=== PATIENT | female | born 1935 | race African-American/Black ===

== ENCOUNTER 2018-01-26 04:33 | Inpatient (IN) ==
[2018-01-26] MEDS ORDERED: SODIUM CHLORIDE 0.9% 1,000 ML IV STA (04:50)
[2018-01-26 05:40] LABS: Apearance,Urine CLOUDY (Clear); Bacteria,Urine Occasional /HPF (Few); Bilirubin,Urine Negative (Negative); Blood, Urine Moderate mg/dL (Negative); Glucose,Urine (UA) Negative (Negative); Ketones,Urine Negative (Negative); Mucus,Urine Occasional /LPF (Occasional); Nitrite,Urine Negative (Negative); Protein,Urine 100 MG/DL; RBC,Urine 6 /HPF (0-4); Urine Color Yellow (Yellow); Urine Specific Gravity 1.014 (1.001-1.035); Urine Urobilinogen < 2.0 EU/DL (0.2-1.0)
[2018-01-26 05:59] LABS: Basophils # 0.1 10*3/uL (0.0-0.2); Basophils % 0.4 % (0.0-0.8); Eosinophils # 0.1 10*3/uL (0.0-0.87); Eosinophils % 0.6 % (0.00-10.9); Hematocrit 30.7 VOL% (35.7-47.0); Hemoglobin 9.5 GM/DL (12.0-16.0); Immature Granulocytes % 0.5 %; Immature Granulocytes Absolute 0.07 #; Lymphocytes # 1.1 10*3/uL (1.4-4.0); Lymphocytes % 8.6 % (21.3-54.2); Mean Corpuscular HGB Conc 30.9 GM/DL (32-36); Mean Corpuscular Hemoglobin 29 PG (27-34); Mean Corpuscular Volume 94.8 FL (87-102); Mean Platelet Volume 11.3 FL (9.6-12.0); Monocytes # 1.5 10*3/uL (0.11-0.8); Monocytes % 11.2 % (1.7-12.7); Neutrophils # 10.2 10*3/uL (1.4-7.4); Neutrophils % 78.7 % (38.7-73.9); Platelet Count 228 T/CUMM (130-400); Red Blood Count 3.24 MC/CUMM (3.8-5.5); Red Cell Distribution Width 17.2 % (9.3-17.3)
[2018-01-26 06:03] LABS: Lactic Acid 1.8 MMOL/L (0.4-2.0)
[2018-01-26 06:11] LABS: Alanine Aminotransferase 28 U/L (13-56); Albumin 2.4 G/DL (3.4-5.0); Alkaline Phosphatase 55 U/L (45-117); Aspartate Amino Transferase 46 U/L (0-37); Bilirubin,Total < 0.39 MG/DL (0.2-1.0); Blood Urea Nitrogen 67 MG/DL (7-18); Calcium 8.9 MG/DL (8.5-10.1); Glucose 129 MG/DL (74-106); Osmolality,Calculated 306.8 MOS/KG (273-304); Potassium 4.8 MMOL/L (3.5-5.1); Sodium 144 MMOL/L (136-145); Total Protein 7.5 G/DL (6.4-8.3)
[2018-01-26] MEDS ORDERED: CEFEPIME 1,000 MG in SODIUM CHLORIDE 0.9% 100 ML IV STA (06:29)
[2018-01-26] MEDS ORDERED: VANCOMYCIN INJ 1,000 MG in SODIUM CHLORIDE 0.9% 250 ML IV STA (06:30)
[2018-01-26] MEDS ORDERED: DOCUSATE SODIUM 100 MG CAPSULE PO PRN (08:21)
[2018-01-26] MEDS ORDERED: ACETAMINOPHEN 325 MG TABLET PO PRN (08:21)
[2018-01-26] MEDS ORDERED: LACTULOSE 20 GM/30 ML UDCUP PO PRN (08:21)
[2018-01-26] MEDS ORDERED: ONDANSETRON 4 MG/2 ML VIAL IV PRN (08:21)
[2018-01-26] MEDS ORDERED: VANCOMYCIN INJ 1,000 MG in SODIUM CHLORIDE 0.9% 250 ML IV SCH (08:30)
[2018-01-26] MEDS ORDERED: cefTRIAXone 1,000 MG in SYRINGE 1 EACH IV SCH (09:00)
[2018-01-26] MEDS: SODIUM CHLORIDE 0.9% 1,000 ML IV SCH (12:32)
[2018-01-26] MEDS ORDERED: VANCOMYCIN INJ 500 MG in SODIUM CHLORIDE 0.9% 100 ML IV ONE (13:00)
[2018-01-26] MEDS ORDERED: VANCOMYCIN INJ 1,000 MG in SODIUM CHLORIDE 0.9% 250 ML IV PRN (13:00)
[2018-01-26] MEDS: ALBUTEROL/IPRATROPIUM 3 ML NEB RESP TX SCH ×2 (13:58→19:43)
[2018-01-26] MEDS: DOXAZOSIN 4 MG TABLET PO SCH (15:17)
[2018-01-26] MEDS: PANTOPRAZOLE 40 MG TABLET PO SCH (15:17)
[2018-01-26] MEDS: MEMANTINE 5 MG TABLET PO SCH (15:17)
[2018-01-26] MEDS: FERROUS SULFATE 325 MG TABLET PO SCH (15:17)
[2018-01-26] MEDS: CINACALCET 30 MG TABLET PO SCH (15:17)
[2018-01-26] MEDS: amLODIPine 10 MG TABLET PO SCH (15:17)
[2018-01-26] MEDS ORDERED: ATORVASTATIN 20 MG TABLET PO SCH (21:00)
[2018-01-26] MEDS: DONEPEZIL 10 MG TABLET PO SCH (22:20)
[2018-01-26] MEDS: MIRTAZAPINE 15 MG TABLET PO SCH (22:20)
[2018-01-27] MEDS: ALBUTEROL/IPRATROPIUM 3 ML NEB RESP TX SCH ×4 (00:38→19:58)
[2018-01-27 05:39] LABS: Basophils % 0.4 % (0.0-0.8); Eosinophils # 0.3 10*3/uL (0.0-0.87); Eosinophils % 2.5 % (0.00-10.9); Hematocrit 26.7 VOL% (35.7-47.0); Hemoglobin 8.3 GM/DL (12.0-16.0); Immature Granulocytes % 0.5 %; Immature Granulocytes Absolute 0.06 #; Lymphocytes # 0.9 10*3/uL (1.4-4.0); Mean Corpuscular HGB Conc 31.1 GM/DL (32-36); Mean Corpuscular Hemoglobin 29 PG (27-34); Mean Corpuscular Volume 93.7 FL (87-102); Mean Platelet Volume 12.6 FL (9.6-12.0); Monocytes # 1.3 10*3/uL (0.11-0.8); Monocytes % 11.4 % (1.7-12.7); Neutrophils # 8.8 10*3/uL (1.4-7.4); Neutrophils % 77.2 % (38.7-73.9); Red Blood Count 2.85 MC/CUMM (3.8-5.5); White Blood Count 11.4 T/CUMM (4-12)
[2018-01-27 05:42] LABS: Platelet Count 179 T/CUMM (130-400)
[2018-01-27 05:58] LABS: Hypochromasia Slight; Platelet Estimate Adequate; Polychromasia Few
[2018-01-27 06:04] LABS: Albumin 1.9 G/DL (3.4-5.0); Bilirubin,Total 0.6 MG/DL (0.2-1.0); Calcium 8.6 MG/DL (8.5-10.1); Osmolality,Calculated 299.1 MOS/KG (273-304); Potassium 4.9 MMOL/L (3.5-5.1); Risk Ratio 2.82; Thyroid Stimulating Hormone 2.4 uIU/ml (0.358-3.74); Total Protein 7.4 G/DL (6.4-8.3); VLDL CHOLESTEROL 8.4 MG/DL
[2018-01-27] MEDS: amLODIPine 10 MG TABLET PO SCH (08:46)
[2018-01-27] MEDS: PANTOPRAZOLE 40 MG TABLET PO SCH (08:46)
[2018-01-27] MEDS: FERROUS SULFATE 325 MG TABLET PO SCH (08:46)
[2018-01-27] MEDS: MEMANTINE 5 MG TABLET PO SCH (08:46)
[2018-01-27] MEDS: DOXAZOSIN 4 MG TABLET PO SCH (08:46)
[2018-01-27] MEDS: SODIUM CHLORIDE 0.9% 1,000 ML IV SCH ×2 (08:47→13:14)
[2018-01-27] MEDS: CEFEPIME 1,000 MG in SYRINGE 1 EACH IV SCH (08:47)
[2018-01-27] MEDS: CINACALCET 30 MG TABLET PO SCH (08:47)
[2018-01-27] MEDS ORDERED: VANCOMYCIN INJ 1,500 MG in SODIUM CHLORIDE 0.9% 500 ML IV ONE (09:00)
[2018-01-27] MEDS: ATORVASTATIN 10 MG TABLET PO SCH (20:45)
[2018-01-27] MEDS: MIRTAZAPINE 15 MG TABLET PO SCH (20:45)
[2018-01-27] MEDS: DONEPEZIL 10 MG TABLET PO SCH (20:45)
[2018-01-28] MEDS: ALBUTEROL/IPRATROPIUM 3 ML NEB RESP TX SCH ×6 (00:21→23:57)
[2018-01-28 06:19] LABS: Basophils % 0.4 % (0.0-0.8); Eosinophils # 0.6 10*3/uL (0.0-0.87); Eosinophils % 5.9 % (0.00-10.9); Hematocrit 27.3 VOL% (35.7-47.0); Hemoglobin 8.5 GM/DL (12.0-16.0); Immature Granulocytes % 0.8 %; Immature Granulocytes Absolute 0.08 #; Lymphocytes # 0.9 10*3/uL (1.4-4.0); Lymphocytes % 9.7 % (21.3-54.2); Mean Corpuscular HGB Conc 31.1 GM/DL (32-36); Mean Corpuscular Hemoglobin 29 PG (27-34); Mean Corpuscular Volume 94.5 FL (87-102); Mean Platelet Volume 10.2 FL (9.6-12.0); Monocytes % 10.2 % (1.7-12.7); Neutrophils # 7.1 10*3/uL (1.4-7.4); Platelet Count 229 T/CUMM (130-400); Red Blood Count 2.89 MC/CUMM (3.8-5.5); Red Cell Distribution Width 16.9 % (9.3-17.3); White Blood Count 9.7 T/CUMM (4-12)
[2018-01-28 06:29] LABS: Calcium 8.6 MG/DL (8.5-10.1); Osmolality,Calculated 309.3 MOS/KG (273-304); Potassium 4.7 MMOL/L (3.5-5.1)
[2018-01-28] MEDS: DOXAZOSIN 4 MG TABLET PO SCH (10:03)
[2018-01-28] MEDS: CEFEPIME 1,000 MG in SYRINGE 1 EACH IV SCH (10:03)
[2018-01-28] MEDS: FERROUS SULFATE 325 MG TABLET PO SCH (10:04)
[2018-01-28] MEDS: MEMANTINE 5 MG TABLET PO SCH (10:04)
[2018-01-28] MEDS: PANTOPRAZOLE 40 MG TABLET PO SCH (10:04)
[2018-01-28] MEDS: CINACALCET 30 MG TABLET PO SCH (10:04)
[2018-01-28] MEDS: amLODIPine 10 MG TABLET PO SCH (10:04)
[2018-01-28] MEDS: FUROSEMIDE 20 MG/2 ML VIAL IV SCH (11:16)
[2018-01-28] MEDS: SODIUM CHLORIDE 0.9% 1,000 ML IV SCH (11:18)
[2018-01-28] MEDS: DONEPEZIL 10 MG TABLET PO SCH (20:43)
[2018-01-28] MEDS: ATORVASTATIN 10 MG TABLET PO SCH (20:43)
[2018-01-28] MEDS: MIRTAZAPINE 15 MG TABLET PO SCH (20:44)
[2018-01-29] MEDS: ALBUTEROL/IPRATROPIUM 3 ML NEB RESP TX SCH ×6 (03:46→23:33)
[2018-01-29 06:51] LABS: Basophils # 0.1 10*3/uL (0.0-0.2); Basophils % 0.6 % (0.0-0.8); Eosinophils # 0.6 10*3/uL (0.0-0.87); Eosinophils % 6.1 % (0.00-10.9); Hematocrit 26.6 VOL% (35.7-47.0); Hemoglobin 8.1 GM/DL (12.0-16.0); Immature Granulocytes % 1.2 %; Immature Granulocytes Absolute 0.11 #; Lymphocytes # 1.1 10*3/uL (1.4-4.0); Lymphocytes % 11.8 % (21.3-54.2); Mean Corpuscular HGB Conc 30.5 GM/DL (32-36); Mean Corpuscular Hemoglobin 29 PG (27-34); Monocytes # 1.1 10*3/uL (0.11-0.8); Monocytes % 11.9 % (1.7-12.7); Neutrophils # 6.5 10*3/uL (1.4-7.4); Neutrophils % 68.4 % (38.7-73.9); Platelet Count 245 T/CUMM (130-400); Red Blood Count 2.77 MC/CUMM (3.8-5.5); Red Cell Distribution Width 16.9 % (9.3-17.3); White Blood Count 9.5 T/CUMM (4-12)
[2018-01-29 06:55] LABS: Osmolality,Calculated 309.1 MOS/KG (273-304); Potassium 4.4 MMOL/L (3.5-5.1)
[2018-01-29] MEDS: FUROSEMIDE 20 MG/2 ML VIAL IV SCH (08:16)
[2018-01-29] MEDS: CEFEPIME 1,000 MG in SYRINGE 1 EACH IV SCH (08:17)
[2018-01-29] MEDS: MEMANTINE 5 MG TABLET PO SCH (08:17)
[2018-01-29] MEDS: CINACALCET 30 MG TABLET PO SCH (08:17)
[2018-01-29] MEDS: amLODIPine 10 MG TABLET PO SCH (08:17)
[2018-01-29] MEDS: DOXAZOSIN 4 MG TABLET PO SCH (08:17)
[2018-01-29] MEDS: FERROUS SULFATE 325 MG TABLET PO SCH (08:17)
[2018-01-29] MEDS: PANTOPRAZOLE 40 MG TABLET PO SCH (08:18)
[2018-01-29] MEDS: ATORVASTATIN 10 MG TABLET PO SCH (22:05)
[2018-01-29] MEDS: MIRTAZAPINE 15 MG TABLET PO SCH (22:05)
[2018-01-29] MEDS: DONEPEZIL 10 MG TABLET PO SCH (22:05)
[2018-01-30] MEDS: ALBUTEROL/IPRATROPIUM 3 ML NEB RESP TX SCH ×5 (03:47→19:16)
[2018-01-30 06:52] LABS: Calcium 9.8 MG/DL (8.5-10.1); Osmolality,Calculated 310.9 MOS/KG (273-304); Potassium 4.2 MMOL/L (3.5-5.1)
[2018-01-30] MEDS: PANTOPRAZOLE 40 MG TABLET PO SCH (09:13)
[2018-01-30] MEDS: CEFEPIME 1,000 MG in SYRINGE 1 EACH IV SCH (09:13)
[2018-01-30] MEDS: DOXAZOSIN 4 MG TABLET PO SCH (09:13)
[2018-01-30] MEDS: amLODIPine 10 MG TABLET PO SCH (09:13)
[2018-01-30] MEDS: FERROUS SULFATE 325 MG TABLET PO SCH (09:13)
[2018-01-30] MEDS: FUROSEMIDE 20 MG/2 ML VIAL IV SCH (09:14)
[2018-01-30] MEDS: CINACALCET 30 MG TABLET PO SCH (09:14)
[2018-01-30] MEDS: MEMANTINE 5 MG TABLET PO SCH (09:14)
[2018-01-30] MEDS: SODIUM CHLORIDE 0.45% 1,000 ML IV SCH (14:31)
[2018-01-30] MEDS: ATORVASTATIN 10 MG TABLET PO SCH (21:06)
[2018-01-30] MEDS: DONEPEZIL 10 MG TABLET PO SCH (21:06)
[2018-01-30] MEDS: MIRTAZAPINE 15 MG TABLET PO SCH (21:06)
[2018-01-31] MEDS: ALBUTEROL/IPRATROPIUM 3 ML NEB RESP TX SCH ×6 (00:13→19:38)
[2018-01-31 05:02] LABS: Basophils % 0.5 % (0.0-0.8); Eosinophils # 0.6 10*3/uL (0.0-0.87); Eosinophils % 6.8 % (0.00-10.9); Hemoglobin 8.3 GM/DL (12.0-16.0); Immature Granulocytes % 1.7 %; Immature Granulocytes Absolute 0.14 #; Lymphocytes # 1.2 10*3/uL (1.4-4.0); Lymphocytes % 14.7 % (21.3-54.2); Mean Corpuscular HGB Conc 30.7 GM/DL (32-36); Mean Corpuscular Hemoglobin 29 PG (27-34); Mean Corpuscular Volume 95.1 FL (87-102); Mean Platelet Volume 10.4 FL (9.6-12.0); Monocytes # 0.9 10*3/uL (0.11-0.8); Monocytes % 10.6 % (1.7-12.7); Neutrophils # 5.3 10*3/uL (1.4-7.4); Neutrophils % 65.7 % (38.7-73.9); Platelet Count 317 T/CUMM (130-400); Red Blood Count 2.84 MC/CUMM (3.8-5.5); Red Cell Distribution Width 16.4 % (9.3-17.3); White Blood Count 8.1 T/CUMM (4-12)
[2018-01-31 06:37] LABS: Calcium 8.7 MG/DL (8.5-10.1); Osmolality,Calculated 306.3 MOS/KG (273-304); Potassium 3.9 MMOL/L (3.5-5.1)
[2018-01-31] MEDS: FERROUS SULFATE 325 MG TABLET PO SCH (09:12)
[2018-01-31] MEDS: MEMANTINE 5 MG TABLET PO SCH (09:12)
[2018-01-31] MEDS: amLODIPine 10 MG TABLET PO SCH (09:12)
[2018-01-31] MEDS: CINACALCET 30 MG TABLET PO SCH (09:12)
[2018-01-31] MEDS: DOXAZOSIN 4 MG TABLET PO SCH (09:12)
[2018-01-31] MEDS: FUROSEMIDE 20 MG/2 ML VIAL IV SCH (09:13)
[2018-01-31] MEDS: PANTOPRAZOLE 40 MG TABLET PO SCH (09:13)
[2018-01-31] MEDS: CEFEPIME 1,000 MG in SYRINGE 1 EACH IV SCH (09:16)
[2018-01-31] MEDS: SODIUM CHLORIDE 0.45% 1,000 ML IV SCH (12:00)
[2018-01-31] MEDS: DONEPEZIL 10 MG TABLET PO SCH (21:07)
[2018-01-31] MEDS: ATORVASTATIN 10 MG TABLET PO SCH (21:07)
[2018-01-31] MEDS: MIRTAZAPINE 15 MG TABLET PO SCH (21:07)
[2018-02-01] MEDS: ALBUTEROL/IPRATROPIUM 3 ML NEB RESP TX SCH ×4 (00:48→11:40)
[2018-02-01 07:25] LABS: Calcium 9.5 MG/DL (8.5-10.1); Osmolality,Calculated 306.3 MOS/KG (273-304); Potassium 3.9 MMOL/L (3.5-5.1)
[2018-02-01] MEDS: CEFEPIME 1,000 MG in SYRINGE 1 EACH IV SCH (09:43)
[2018-02-01] MEDS: PANTOPRAZOLE 40 MG TABLET PO SCH (09:44)
[2018-02-01] MEDS: FERROUS SULFATE 325 MG TABLET PO SCH (09:44)
[2018-02-01] MEDS: CINACALCET 30 MG TABLET PO SCH (09:45)
[2018-02-01] MEDS: amLODIPine 10 MG TABLET PO SCH (09:45)
[2018-02-01] MEDS: FUROSEMIDE 20 MG/2 ML VIAL IV SCH (09:45)
[2018-02-01] MEDS: DOXAZOSIN 4 MG TABLET PO SCH (09:45)
[2018-02-01] MEDS: MEMANTINE 5 MG TABLET PO SCH (09:45)
[2018-02-01 13:00] VITALS: BP 138/60
== END 2018-02-01 13:55 | DRG 194 ==
LOC: EDUNIT# → N.ED 04:33 → N.EDINP 08:11 → SUATTDRO 08:11 → N.2W 08:56 → N.5E 12:24
PROVIDERS: ADMIT Internal Medicine; ATTEND Internal Medicine

== ENCOUNTER 2019-07-16 12:22 | Inpatient (IN) ==
[2019-07-16] MEDS ORDERED: SODIUM CHLORIDE 0.9% 1,000 ML IV STA (13:07)
[2019-07-16 13:15] LABS: Basophils % 0.4 % (0.0-0.8); Hematocrit 38.8 VOL% (35.7-47.0); Hemoglobin 11.6 GM/DL (12.0-16.0); Immature Granulocytes % 0.7 %; Immature Granulocytes Absolute 0.05 #; Lymphocytes # 0.8 10*3/uL (1.4-4.0); Lymphocytes % 10.5 % (21.3-54.2); Mean Corpuscular HGB Conc 29.9 GM/DL (32-36); Mean Corpuscular Volume 90.2 FL (87-102); Mean Platelet Volume 13.4 FL (9.6-12.0); Monocytes % 3.8 % (1.7-12.7); Neutrophils % 84.6 % (38.7-73.9); Platelet Count 116 T/CUMM (130-400); Red Cell Distribution Width 17.1 % (9.3-17.3); White Blood Count 7.3 T/CUMM (4-12)
[2019-07-16 13:34] LABS: Apearance,Urine CLOUDY (Clear); Bacteria,Urine Occasional /HPF (Few); Bilirubin,Urine Negative (Negative); Blood, Urine Negative (Negative); Glucose,Urine (UA) Negative (Negative); Ketones,Urine Negative (Negative); Mucus,Urine Occasional /LPF (Occasional); Nitrite,Urine Negative (Negative); Protein,Urine >=500 MG/DL; RBC,Urine 3 /HPF (0-4); Squamous Epithelial Cell,Urine Occasional /HPF (0-10); Urine Color Amber (Yellow); Urine Specific Gravity 1.017 (1.001-1.035); Urine Urobilinogen < 2.0 EU/DL (0.2-1.0); WBC,Urine 5 /HPF (0-6)
[2019-07-16 13:52] LABS: Albumin 2.5 G/DL (3.4-5.0); Bilirubin,Total 0.4 MG/DL (0.2-1.0); Calcium 9.4 MG/DL (8.5-10.1); Osmolality,Calculated 326.8 MOS/KG (273-304); Total Protein 8.1 G/DL (6.4-8.3)
[2019-07-16 14:50] LABS: Macrocytosis 1+; Platelet Estimate Adequate
[2019-07-16] MEDS ORDERED: GLUCAGON 1 MG VIAL IM PRN ×2 (14:52)
[2019-07-16] MEDS ORDERED: DEXTROSE 50% 25 GM/50 ML VIAL IV PRN (14:52)
[2019-07-16] MEDS ORDERED: DEXTROSE 10% 250 ML BAG IV PRN (14:52)
[2019-07-16] MEDS ORDERED: ACETAMINOPHEN 325 MG TABLET PO PRN (15:06)
[2019-07-16] MEDS: INSULIN LISPRO 100 UNIT/ML SUBCUT SCH ×2 (17:33→20:45)
[2019-07-16] MEDS: SODIUM CHLORIDE 0.45% 1,000 ML IV SCH (18:38)
[2019-07-16] MEDS: ZINC SULFATE 220 MG CAPSULE PO SCH (20:40)
[2019-07-16] MEDS: HYDROXYCHLOROQUINE 200 MG TABLET PO SCH (20:40)
[2019-07-17 06:30] LABS: Basophils % 0.1 % (0.0-0.8); Eosinophils % 0.1 % (0.00-10.9); Hematocrit 33.4 VOL% (35.7-47.0); Hemoglobin 9.8 GM/DL (12.0-16.0); Immature Granulocytes % 0.8 %; Immature Granulocytes Absolute 0.06 #; Lymphocytes # 0.9 10*3/uL (1.4-4.0); Lymphocytes % 12.6 % (21.3-54.2); Mean Corpuscular HGB Conc 29.3 GM/DL (32-36); Mean Corpuscular Volume 90.5 FL (87-102); Neutrophils % 82.4 % (38.7-73.9); Platelet Count 101 T/CUMM (130-400); Red Blood Count 3.69 MC/CUMM (3.8-5.5); White Blood Count 7.2 T/CUMM (4-12)
[2019-07-17 06:49] LABS: Calcium 8.7 MG/DL (8.5-10.1); Osmolality,Calculated 328.4 MOS/KG (273-304)
[2019-07-17 06:51] LABS: Alanine Aminotransferase < 9 U/L (13-56); Albumin 2.2 G/DL (3.4-5.0); Alkaline Phosphatase 61 U/L (45-117); Aspartate Amino Transferase 26 U/L (0-37); Blood Urea Nitrogen 117 MG/DL (7-18); Calcium 8.6 MG/DL (8.5-10.1); Estimated Glom Filtration Rate 7 ML/MIN; Ferritin 894.4 ng/ml (8-252); Glucose 81 MG/DL (74-106); Osmolality,Calculated 327.4 MOS/KG (273-304); Total Protein 7.3 G/DL (6.4-8.3)
[2019-07-17] MEDS: INSULIN LISPRO 100 UNIT/ML SUBCUT SCH ×4 (08:58→20:56)
[2019-07-17] MEDS: HYDROXYCHLOROQUINE 200 MG TABLET PO SCH ×3 (10:09→20:55)
[2019-07-17 11:55] LABS: Burr Cells Few; Hypochromasia 1+; Ovalocytes Few; Platelet Estimate Adequate; Schistocytes Slight
[2019-07-17] MEDS: SODIUM CHLORIDE 0.45% 1,000 ML IV SCH (15:20)
[2019-07-17] MEDS: HEPARIN 5,000 UNIT/1 ML VIAL SUBCUT SCH (17:45)
[2019-07-18 06:15] LABS: Basophils % 0.4 % (0.0-0.8); Eosinophils % 0.4 % (0.00-10.9); Hemoglobin 8.8 GM/DL (12.0-16.0); Immature Granulocytes % 1.6 %; Immature Granulocytes Absolute 0.11 #; Lymphocytes # 0.7 10*3/uL (1.4-4.0); Lymphocytes % 10.5 % (21.3-54.2); Mean Corpuscular HGB Conc 30.3 GM/DL (32-36); Mean Corpuscular Volume 90.1 FL (87-102); Mean Platelet Volume 13.3 FL (9.6-12.0); Monocytes % 5.4 % (1.7-12.7); NRBC # 0.02 10*3/uL; Neutrophils % 81.7 % (38.7-73.9); Platelet Count 112 T/CUMM (130-400); Red Blood Count 3.22 MC/CUMM (3.8-5.5); Red Cell Distribution Width 16.9 % (9.3-17.3); White Blood Count 6.8 T/CUMM (4-12)
[2019-07-18 06:38] LABS: Calcium 9.1 MG/DL (8.5-10.1); Osmolality,Calculated 322.4 MOS/KG (273-304)
[2019-07-18 06:45] LABS: Hypochromasia 1+; Microcytosis 1+; Ovalocytes Few; Target Cells Slight
[2019-07-18 06:46] LABS: Platelet Estimate Decreased
[2019-07-18] MEDS: INSULIN LISPRO 100 UNIT/ML SUBCUT SCH ×4 (08:32→21:03)
[2019-07-18] MEDS: HYDROXYCHLOROQUINE 200 MG TABLET PO SCH ×2 (09:40→21:03)
[2019-07-18] MEDS: HEPARIN 5,000 UNIT/1 ML VIAL SUBCUT SCH ×3 (09:40→16:07)
[2019-07-18] MEDS: SODIUM CHLORIDE 0.45% 1,000 ML IV SCH (11:23)
[2019-07-18] MEDS: ZINC SULFATE 220 MG CAPSULE PO SCH (21:03)
[2019-07-19] MEDS: HEPARIN 5,000 UNIT/1 ML VIAL SUBCUT SCH ×3 (00:40→18:08)
[2019-07-19 05:27] LABS: Basophils % 0.5 % (0.0-0.8); Eosinophils # 0.1 10*3/uL (0.0-0.87); Eosinophils % 1.6 % (0.00-10.9); Hematocrit 28.7 VOL% (35.7-47.0); Hemoglobin 8.4 GM/DL (12.0-16.0); Immature Granulocytes % 2.3 %; Immature Granulocytes Absolute 0.17 #; Mean Corpuscular HGB Conc 29.3 GM/DL (32-36); Mean Corpuscular Volume 91.4 FL (87-102); Mean Platelet Volume 12.8 FL (9.6-12.0); Monocytes % 7.6 % (1.7-12.7); NRBC # 0.02 10*3/uL; Platelet Count 129 T/CUMM (130-400); Red Blood Count 3.14 MC/CUMM (3.8-5.5); Red Cell Distribution Width 17.3 % (9.3-17.3); White Blood Count 7.5 T/CUMM (4-12)
[2019-07-19] MEDS: SODIUM CHLORIDE 0.45% 1,000 ML IV SCH (05:30)
[2019-07-19 05:35] LABS: Calcium 9.2 MG/DL (8.5-10.1); Osmolality,Calculated 320.3 MOS/KG (273-304)
[2019-07-19 06:00] LABS: Hypochromasia 1+; Ovalocytes Slight
[2019-07-19 06:02] LABS: Microcytosis 1+
[2019-07-19] MEDS: INSULIN LISPRO 100 UNIT/ML SUBCUT SCH ×4 (07:36→20:48)
[2019-07-19] MEDS: HYDROXYCHLOROQUINE 200 MG TABLET PO SCH ×2 (11:38→20:37)
[2019-07-20] MEDS: HEPARIN 5,000 UNIT/1 ML VIAL SUBCUT SCH ×2 (00:21→10:45)
[2019-07-20] MEDS: SODIUM CHLORIDE 0.45% 1,000 ML IV SCH (00:42)
[2019-07-20 05:32] LABS: Basophils % 0.7 % (0.0-0.8); Eosinophils # 0.2 10*3/uL (0.0-0.87); Eosinophils % 3.4 % (0.00-10.9); Hematocrit 26.6 VOL% (35.7-47.0); Hemoglobin 7.8 GM/DL (12.0-16.0); Immature Granulocytes % 3.7 %; Immature Granulocytes Absolute 0.22 #; Lymphocytes # 0.8 10*3/uL (1.4-4.0); Lymphocytes % 13.4 % (21.3-54.2); Mean Corpuscular HGB Conc 29.3 GM/DL (32-36); Mean Corpuscular Volume 90.8 FL (87-102); Mean Platelet Volume 13.1 FL (9.6-12.0); Monocytes % 10.8 % (1.7-12.7); NRBC # 0.02 10*3/uL; Platelet Count 153 T/CUMM (130-400); Red Blood Count 2.93 MC/CUMM (3.8-5.5); Red Cell Distribution Width 17.2 % (9.3-17.3)
[2019-07-20 05:37] LABS: Calcium 8.6 MG/DL (8.5-10.1); Osmolality,Calculated 316.3 MOS/KG (273-304)
[2019-07-20 05:58] LABS: Hypochromasia 1+; Microcytosis 1+; Ovalocytes Slight; Platelet Estimate Adequate
[2019-07-20] MEDS: INSULIN LISPRO 100 UNIT/ML SUBCUT SCH ×2 (08:19→11:58)
[2019-07-20] MEDS: HYDROXYCHLOROQUINE 200 MG TABLET PO SCH (10:46)
[2019-07-20 13:05] VITALS: BP 145/48
== END 2019-07-20 12:50 | DRG 871 ==
LOC: EDBD → EDUNIT# → N.ED 12:22 → N.EDINP 14:52 → N.2W 17:31
PROVIDERS: ADMIT Hospitalist; ATTEND Hospitalist

== ENCOUNTER 2019-07-26 11:18 | Inpatient (IN) ==
[2019-07-26] MEDS ORDERED: SODIUM CHLORIDE 0.9% 1,000 ML IV STA (11:46)
[2019-07-26 12:48] LABS: Apearance,Urine CLOUDY (Clear); Bacteria,Urine Many /HPF (Few); Bilirubin,Urine Negative (Negative); Blood, Urine Moderate mg/dL (Negative); Glucose,Urine (UA) Negative (Negative); Ketones,Urine 5 mg/dL (Negative); Mucus,Urine Few /LPF (Occasional); Nitrite,Urine Negative (Negative); Protein,Urine 100 MG/DL; RBC,Urine 339 /HPF (0-4); Urine Color Yellow (Yellow); Urine Specific Gravity 1.014 (1.001-1.035); Urine Urobilinogen < 2.0 EU/DL (0.2-1.0); WBC,Urine 4291 /HPF (0-6)
[2019-07-26 12:53] LABS: Basophils # 0.1 10*3/uL (0.0-0.2); Basophils % 0.7 % (0.0-0.8); Eosinophils # 0.2 10*3/uL (0.0-0.87); Eosinophils % 1.7 % (0.00-10.9); Hematocrit 33.5 VOL% (35.7-47.0); Hemoglobin 9.9 GM/DL (12.0-16.0); Immature Granulocytes % 1.2 %; Lymphocytes # 0.9 10*3/uL (1.4-4.0); Lymphocytes % 10.1 % (21.3-54.2); Mean Corpuscular HGB Conc 29.6 GM/DL (32-36); Mean Platelet Volume 11.7 FL (9.6-12.0); Monocytes % 6.7 % (1.7-12.7); Neutrophils % 79.6 % (38.7-73.9); Platelet Count 252 T/CUMM (130-400); Red Blood Count 3.68 MC/CUMM (3.8-5.5); Red Cell Distribution Width 17.9 % (9.3-17.3); White Blood Count 8.7 T/CUMM (4-12)
[2019-07-26 13:05] LABS: Barbiturates Screen,Urine Negative (Negative); Benzodiazepines Screen,Urine Negative (Negative); Cannabinoid Screen,Urine Negative (Negative); Opiate Screen,Urine Negative (Negative); Phencyclidine Screen,Urine Negative (Negative)
[2019-07-26 13:06] LABS: Albumin 2.4 G/DL (3.4-5.0); Bilirubin,Total 0.6 MG/DL (0.2-1.0); Calcium 10.1 MG/DL (8.5-10.1); Osmolality,Calculated 338.2 MOS/KG (273-304); Total Protein 9.4 G/DL (6.4-8.3)
[2019-07-26 13:08] LABS: Anisocytosis Slight; Hypochromasia Slight; Platelet Estimate Normal
[2019-07-26] MEDS ORDERED: LEVOFLOXACIN INJ 500 MG in PREMIX 1 EACH IV STA (13:14)
[2019-07-26] MEDS ORDERED: ONDANSETRON 4 MG/2 ML VIAL IV PRN (14:24)
[2019-07-26] MEDS ORDERED: SODIUM CHLORIDE 0.9% 1,000 ML IV SCH (14:30)
[2019-07-26] MEDS ORDERED: DARBEPOETIN ALFA 100 MCG/ML VIAL SUBCUT SCH (15:00)
[2019-07-26] MEDS: ENOXAPARIN 30 MG/0.3 ML SYRINGE SUBCUT SCH (15:59)
[2019-07-26] MEDS: SODIUM CHLORIDE 0.45% 1,000 ML IV SCH (15:59)
[2019-07-26] MEDS: SODIUM BICARBONATE 650 MG TABLET PO SCH (20:00)
[2019-07-26] MEDS: MEGESTROL 400 MG/10 ML UDCUP PO SCH (20:00)
[2019-07-26] MEDS: FERROUS SULFATE 325 MG TABLET PO SCH (20:00)
[2019-07-26] MEDS: DOCUSATE SODIUM 100 MG CAPSULE PO SCH (20:00)
[2019-07-27] MEDS: SODIUM CHLORIDE 0.45% 1,000 ML IV SCH (02:20)
[2019-07-27 06:13] LABS: Basophils % 0.5 % (0.0-0.8); Eosinophils # 0.2 10*3/uL (0.0-0.87); Eosinophils % 1.9 % (0.00-10.9); Hematocrit 28.1 VOL% (35.7-47.0); Immature Granulocytes Absolute 0.08 #; Lymphocytes # 0.7 10*3/uL (1.4-4.0); Lymphocytes % 9.3 % (21.3-54.2); Mean Corpuscular HGB Conc 28.5 GM/DL (32-36); Mean Corpuscular Volume 92.4 FL (87-102); Mean Platelet Volume 11.5 FL (9.6-12.0); Monocytes % 6.8 % (1.7-12.7); Neutrophils % 80.5 % (38.7-73.9); Platelet Count 229 T/CUMM (130-400); Red Blood Count 3.04 MC/CUMM (3.8-5.5); Red Cell Distribution Width 18.1 % (9.3-17.3); White Blood Count 7.8 T/CUMM (4-12)
[2019-07-27 06:18] LABS: Bilirubin,Total 0.6 MG/DL (0.2-1.0); Calcium 9.4 MG/DL (8.5-10.1); Thyroid Stimulating Hormone 1.88 uIU/ml (0.358-3.74); Total Protein 7.7 G/DL (6.4-8.3)
[2019-07-27 06:19] LABS: Hypochromasia 2+; Microcytosis 1+; Platelet Estimate Adequate
[2019-07-27] MEDS: FERROUS SULFATE 325 MG TABLET PO SCH ×3 (08:27→20:32)
[2019-07-27] MEDS: MULTIVITAMIN (CENTRUM) TABLET PO SCH (08:27)
[2019-07-27] MEDS: DOXAZOSIN 4 MG TABLET PO SCH (08:27)
[2019-07-27] MEDS: DOCUSATE SODIUM 100 MG CAPSULE PO SCH ×2 (08:27→20:32)
[2019-07-27] MEDS: SODIUM BICARBONATE 650 MG TABLET PO SCH ×2 (08:28→20:32)
[2019-07-27] MEDS: ATORVASTATIN 20 MG TABLET PO SCH (08:28)
[2019-07-27] MEDS: amLODIPine 10 MG TABLET PO SCH (08:28)
[2019-07-27] MEDS: CINACALCET 30 MG TABLET PO SCH (08:28)
[2019-07-27] MEDS: DONEPEZIL 10 MG TABLET PO SCH (08:28)
[2019-07-27] MEDS: MIRTAZAPINE 15 MG TABLET PO SCH (08:28)
[2019-07-27] MEDS: MEGESTROL 400 MG/10 ML UDCUP PO SCH ×2 (08:28→20:32)
[2019-07-27] MEDS: MEMANTINE 10 MG TABLET PO SCH ×2 (08:29→20:32)
[2019-07-27] MEDS: PANTOPRAZOLE 40 MG TABLET PO SCH (08:29)
[2019-07-27] MEDS: DEXTROSE 5% 1,000 ML IV SCH ×2 (08:35→20:13)
[2019-07-27] MEDS: ENOXAPARIN 30 MG/0.3 ML SYRINGE SUBCUT SCH (14:45)
[2019-07-28] MEDS: DEXTROSE 5% 1,000 ML IV SCH (06:23)
[2019-07-28 07:45] LABS: Basophils % 0.6 % (0.0-0.8); Eosinophils # 0.2 10*3/uL (0.0-0.87); Eosinophils % 2.2 % (0.00-10.9); Hematocrit 27.5 VOL% (35.7-47.0); Hemoglobin 8.1 GM/DL (12.0-16.0); Immature Granulocytes Absolute 0.07 #; Lymphocytes # 0.8 10*3/uL (1.4-4.0); Lymphocytes % 10.9 % (21.3-54.2); Mean Corpuscular HGB Conc 29.5 GM/DL (32-36); Mean Platelet Volume 12.3 FL (9.6-12.0); Monocytes % 7.7 % (1.7-12.7); Neutrophils % 77.6 % (38.7-73.9); Platelet Count 239 T/CUMM (130-400); Red Blood Count 2.99 MC/CUMM (3.8-5.5); Red Cell Distribution Width 17.5 % (9.3-17.3); White Blood Count 7.3 T/CUMM (4-12)
[2019-07-28 07:58] LABS: Bilirubin,Total 0.5 MG/DL (0.2-1.0); Calcium 9.6 MG/DL (8.5-10.1); Total Protein 7.8 G/DL (6.4-8.3)
[2019-07-28] MEDS: FERROUS SULFATE 325 MG TABLET PO SCH ×3 (08:14→19:56)
[2019-07-28] MEDS: ATORVASTATIN 20 MG TABLET PO SCH (08:14)
[2019-07-28] MEDS: DOXAZOSIN 4 MG TABLET PO SCH (08:14)
[2019-07-28] MEDS: MEGESTROL 400 MG/10 ML UDCUP PO SCH ×2 (08:14→19:56)
[2019-07-28] MEDS: MULTIVITAMIN (CENTRUM) TABLET PO SCH (08:14)
[2019-07-28] MEDS: MIRTAZAPINE 15 MG TABLET PO SCH (08:14)
[2019-07-28] MEDS: DOCUSATE SODIUM 100 MG CAPSULE PO SCH ×2 (08:14→19:56)
[2019-07-28] MEDS: amLODIPine 10 MG TABLET PO SCH (08:14)
[2019-07-28] MEDS: MEMANTINE 10 MG TABLET PO SCH ×2 (08:15→21:59)
[2019-07-28] MEDS: DONEPEZIL 10 MG TABLET PO SCH (08:15)
[2019-07-28] MEDS: PANTOPRAZOLE 40 MG TABLET PO SCH (08:15)
[2019-07-28] MEDS: SODIUM BICARBONATE 650 MG TABLET PO SCH ×2 (08:15→19:56)
[2019-07-28] MEDS ORDERED: LEVOFLOXACIN INJ 500 MG in PREMIX 1 EACH IV SCH (09:00)
[2019-07-28] MEDS: CINACALCET 30 MG TABLET PO SCH (10:19)
[2019-07-28] MEDS ORDERED: MAGNESIUM SULF RIDER 1 GM in PREMIX 1 EACH IV ONE (12:00)
[2019-07-28] MEDS: ENOXAPARIN 30 MG/0.3 ML SYRINGE SUBCUT SCH (15:05)
[2019-07-28] MEDS ORDERED: SODIUM CHLORIDE 0.45% 1,000 ML IV SCH (15:30)
[2019-07-28] MEDS: SODIUM BICARB INJ 100 MEQ in STERILE WATER INJ 1,000 ML IV SCH (16:38)
[2019-07-29] MEDS: DEXTROSE 5% 1,000 ML IV SCH (01:18)
[2019-07-29] MEDS: SODIUM BICARB INJ 100 MEQ in STERILE WATER INJ 1,000 ML IV SCH ×3 (01:54→18:20)
[2019-07-29 05:55] LABS: Basophils % 0.4 % (0.0-0.8); Eosinophils # 0.1 10*3/uL (0.0-0.87); Eosinophils % 1.5 % (0.00-10.9); Hematocrit 24.8 VOL% (35.7-47.0); Immature Granulocytes % 1.2 %; Immature Granulocytes Absolute 0.08 #; Lymphocytes # 0.7 10*3/uL (1.4-4.0); Lymphocytes % 9.6 % (21.3-54.2); Mean Corpuscular HGB Conc 32.3 GM/DL (32-36); Mean Corpuscular Volume 85.5 FL (87-102); Mean Platelet Volume 12.2 FL (9.6-12.0); Monocytes % 8.5 % (1.7-12.7); Neutrophils % 78.8 % (38.7-73.9); Platelet Count 202 T/CUMM (130-400); Red Cell Distribution Width 16.8 % (9.3-17.3); White Blood Count 6.8 T/CUMM (4-12)
[2019-07-29 06:25] LABS: Albumin 1.8 G/DL (3.4-5.0); Bilirubin,Total 0.6 MG/DL (0.2-1.0); Calcium 8.9 MG/DL (8.5-10.1); Osmolality,Calculated 296.1 MOS/KG (273-304); Total Protein 6.9 G/DL (6.4-8.3)
[2019-07-29] MEDS ORDERED: ETOMIDATE 20 MG/10 ML VIAL IV ONE (09:00)
[2019-07-29] MEDS ORDERED: LIDOCAINE 2% 5 ML VIAL ONE (09:00)
[2019-07-29] MEDS ORDERED: propofoL 200 MG/20 ML VIAL IV ONE (09:00)
[2019-07-29] MEDS: DOXAZOSIN 4 MG TABLET PO SCH (10:53)
[2019-07-29] MEDS: MULTIVITAMIN (CENTRUM) TABLET PO SCH (10:54)
[2019-07-29] MEDS: DONEPEZIL 10 MG TABLET PO SCH (10:54)
[2019-07-29] MEDS: CINACALCET 30 MG TABLET PO SCH (10:54)
[2019-07-29] MEDS: amLODIPine 10 MG TABLET PO SCH (10:54)
[2019-07-29] MEDS: DOCUSATE SODIUM 100 MG CAPSULE PO SCH (10:54)
[2019-07-29] MEDS: MIRTAZAPINE 15 MG TABLET PO SCH (10:54)
[2019-07-29] MEDS: ATORVASTATIN 20 MG TABLET PO SCH (10:54)
[2019-07-29] MEDS: FERROUS SULFATE 325 MG TABLET PO SCH ×2 (10:54→15:10)
[2019-07-29] MEDS: MEGESTROL 400 MG/10 ML UDCUP PO SCH ×2 (10:54→21:28)
[2019-07-29] MEDS: SODIUM BICARBONATE 650 MG TABLET PO SCH ×2 (10:54→21:26)
[2019-07-29] MEDS: PANTOPRAZOLE 40 MG TABLET PO SCH (10:55)
[2019-07-29] MEDS: MEMANTINE 10 MG TABLET PO SCH ×2 (10:55→21:26)
[2019-07-29] MEDS ORDERED: LACTATED RINGERS 1,000 ML IV SCH (11:00)
[2019-07-29] MEDS: cefTRIAXone 1,000 MG in SYRINGE 1 EACH IV SCH (11:43)
[2019-07-29] MEDS: ENOXAPARIN 30 MG/0.3 ML SYRINGE SUBCUT SCH (18:34)
[2019-07-29] MEDS: DOCUSATE SODIUM 100 MG/10 ML UDCUP PEG SCH (21:26)
[2019-07-29] MEDS: FERROUS SULFATE 300 MG/5 ML UDCUP PEG SCH (21:26)
[2019-07-30] MEDS: SODIUM BICARB INJ 100 MEQ in STERILE WATER INJ 1,000 ML IV SCH ×4 (01:00→23:00)
[2019-07-30] MEDS: DOCUSATE SODIUM 100 MG/10 ML UDCUP PEG SCH ×2 (09:01→21:30)
[2019-07-30] MEDS: DOXAZOSIN 4 MG TABLET PO SCH (09:01)
[2019-07-30] MEDS: MULTIVITAMIN (CENTRUM) TABLET PO SCH (09:01)
[2019-07-30] MEDS: FERROUS SULFATE 300 MG/5 ML UDCUP PEG SCH ×3 (09:01→21:30)
[2019-07-30] MEDS: ATORVASTATIN 20 MG TABLET PO SCH (09:02)
[2019-07-30] MEDS: CINACALCET 30 MG TABLET PO SCH (09:02)
[2019-07-30] MEDS: amLODIPine 10 MG TABLET PO SCH (09:02)
[2019-07-30] MEDS: MEGESTROL 400 MG/10 ML UDCUP PO SCH ×2 (09:02→21:30)
[2019-07-30] MEDS: MIRTAZAPINE 15 MG TABLET PO SCH (09:02)
[2019-07-30] MEDS: MEMANTINE 10 MG TABLET PO SCH ×2 (09:03→21:29)
[2019-07-30] MEDS: SODIUM BICARBONATE 650 MG TABLET PO SCH ×2 (09:03→21:29)
[2019-07-30] MEDS: DONEPEZIL 10 MG TABLET PO SCH (09:03)
[2019-07-30] MEDS: PANTOPRAZOLE 40 MG TABLET PO SCH (09:03)
[2019-07-30] MEDS: cefTRIAXone 1,000 MG in SYRINGE 1 EACH IV SCH (12:30)
[2019-07-30] MEDS: ENOXAPARIN 30 MG/0.3 ML SYRINGE SUBCUT SCH (15:20)
[2019-07-30] MEDS: ACETAMINOPHEN 325 MG TABLET PO PRN ×2 (17:00→21:29)
[2019-07-31] MEDS: SODIUM BICARB INJ 100 MEQ in STERILE WATER INJ 1,000 ML IV SCH ×3 (01:12→21:00)
[2019-07-31] MEDS: ATORVASTATIN 20 MG TABLET PO SCH (09:06)
[2019-07-31] MEDS: DONEPEZIL 10 MG TABLET PO SCH (09:06)
[2019-07-31] MEDS: MULTIVITAMIN (CENTRUM) TABLET PO SCH (09:07)
[2019-07-31] MEDS: MEGESTROL 400 MG/10 ML UDCUP PO SCH ×2 (09:07→21:16)
[2019-07-31] MEDS: MIRTAZAPINE 15 MG TABLET PO SCH (09:07)
[2019-07-31] MEDS: SODIUM BICARBONATE 650 MG TABLET PO SCH ×2 (09:08→21:15)
[2019-07-31] MEDS: DOCUSATE SODIUM 100 MG/10 ML UDCUP PEG SCH ×2 (09:39→21:16)
[2019-07-31] MEDS: DOXAZOSIN 4 MG TABLET PO SCH (09:39)
[2019-07-31] MEDS: amLODIPine 10 MG TABLET PO SCH (09:40)
[2019-07-31] MEDS: FERROUS SULFATE 300 MG/5 ML UDCUP PEG SCH ×3 (09:40→21:16)
[2019-07-31] MEDS: MEMANTINE 10 MG TABLET PO SCH ×2 (09:41→21:15)
[2019-07-31] MEDS: PANTOPRAZOLE 40 MG TABLET PO SCH (09:41)
[2019-07-31] MEDS: CINACALCET 30 MG TABLET PO SCH (09:41)
[2019-07-31] MEDS: cefTRIAXone 1,000 MG in SYRINGE 1 EACH IV SCH (10:27)
[2019-07-31] MEDS: ENOXAPARIN 30 MG/0.3 ML SYRINGE SUBCUT SCH (14:21)
[2019-08-01] MEDS: SODIUM BICARB INJ 100 MEQ in STERILE WATER INJ 1,000 ML IV SCH ×2 (00:37→12:44)
[2019-08-01 06:59] LABS: Calcium 8.6 MG/DL (8.5-10.1); Osmolality,Calculated 279.2 MOS/KG (273-304)
[2019-08-01] MEDS ORDERED: MAGNESIUM SULF RIDER 2 GM in PREMIX 1 EACH IV PRN (08:13)
[2019-08-01] MEDS ORDERED: MAGNESIUM SULF RIDER 4 GM in PREMIX 1 EACH IV PRN (08:13)
[2019-08-01] MEDS: FERROUS SULFATE 300 MG/5 ML UDCUP PEG SCH ×3 (10:12→21:37)
[2019-08-01] MEDS: MEMANTINE 10 MG TABLET PO SCH ×2 (10:13→21:37)
[2019-08-01] MEDS: CINACALCET 30 MG TABLET PO SCH (10:13)
[2019-08-01] MEDS: DOCUSATE SODIUM 100 MG/10 ML UDCUP PEG SCH ×2 (10:13→21:37)
[2019-08-01] MEDS: ATORVASTATIN 20 MG TABLET PO SCH (10:13)
[2019-08-01] MEDS: amLODIPine 10 MG TABLET PO SCH (10:14)
[2019-08-01] MEDS: DOXAZOSIN 4 MG TABLET PO SCH (10:14)
[2019-08-01] MEDS: DONEPEZIL 10 MG TABLET PO SCH (10:14)
[2019-08-01] MEDS: SODIUM BICARBONATE 650 MG TABLET PO SCH (10:14)
[2019-08-01] MEDS: MULTIVITAMIN (CENTRUM) TABLET PO SCH (10:14)
[2019-08-01] MEDS: MIRTAZAPINE 15 MG TABLET PO SCH (10:14)
[2019-08-01] MEDS: cefTRIAXone 1,000 MG in SYRINGE 1 EACH IV SCH (10:15)
[2019-08-01] MEDS: PANTOPRAZOLE 40 MG TABLET PO SCH (10:15)
[2019-08-01] MEDS: POTASSIUM CHLORIDE RIDER 10 MEQ in PREMIX 1 EACH IV PRN ×5 (10:15→19:15)
[2019-08-01] MEDS: MEGESTROL 400 MG/10 ML UDCUP PO SCH (12:44)
[2019-08-01] MEDS: OMEPRAZOLE ODT 20 MG TABLET PER TUBE SCH (13:07)
[2019-08-01] MEDS: amLODIPine 5 MG TABLET PO SCH (13:07)
[2019-08-01] MEDS: ENOXAPARIN 30 MG/0.3 ML SYRINGE SUBCUT SCH (15:35)
[2019-08-02] MEDS: POTASSIUM CHLORIDE RIDER 10 MEQ in PREMIX 1 EACH IV PRN (01:06)
[2019-08-02 06:19] LABS: Basophils % 0.2 % (0.0-0.8); Eosinophils # 0.2 10*3/uL (0.0-0.87); Eosinophils % 2.6 % (0.00-10.9); Hematocrit 24.6 VOL% (35.7-47.0); Hemoglobin 7.4 GM/DL (12.0-16.0); Immature Granulocytes % 0.7 %; Immature Granulocytes Absolute 0.06 #; Lymphocytes # 0.9 10*3/uL (1.4-4.0); Lymphocytes % 11.1 % (21.3-54.2); Mean Corpuscular HGB Conc 30.1 GM/DL (32-36); Mean Corpuscular Volume 88.2 FL (87-102); Monocytes % 14.2 % (1.7-12.7); Neutrophils % 71.2 % (38.7-73.9); Platelet Count 225 T/CUMM (130-400); Red Blood Count 2.79 MC/CUMM (3.8-5.5); Red Cell Distribution Width 16.5 % (9.3-17.3); White Blood Count 8.5 T/CUMM (4-12)
[2019-08-02 07:06] LABS: % Iron Saturation 12.2 % (18-50); Calcium 8.6 MG/DL (8.5-10.1); Ferritin 737.5 ng/ml (8-252); Osmolality,Calculated 281.1 MOS/KG (273-304)
[2019-08-02] MEDS: DOCUSATE SODIUM 100 MG/10 ML UDCUP PEG SCH ×2 (09:24→21:06)
[2019-08-02] MEDS: MEMANTINE 10 MG TABLET PO SCH ×2 (09:24→21:06)
[2019-08-02] MEDS: FERROUS SULFATE 300 MG/5 ML UDCUP PEG SCH ×3 (09:24→21:06)
[2019-08-02] MEDS: amLODIPine 5 MG TABLET PO SCH ×2 (09:24→09:27)
[2019-08-02] MEDS: MULTIVITAMIN (CENTRUM) TABLET PO SCH (09:24)
[2019-08-02] MEDS: MIRTAZAPINE 15 MG TABLET PO SCH (09:25)
[2019-08-02] MEDS: DONEPEZIL 10 MG TABLET PO SCH (09:25)
[2019-08-02] MEDS: CINACALCET 30 MG TABLET PO SCH (09:25)
[2019-08-02] MEDS: OMEPRAZOLE ODT 20 MG TABLET PER TUBE SCH (09:25)
[2019-08-02] MEDS: ATORVASTATIN 20 MG TABLET PO SCH (09:25)
[2019-08-02] MEDS: cefTRIAXone 1,000 MG in SYRINGE 1 EACH IV SCH (10:02)
[2019-08-02] MEDS: ACETAMINOPHEN 325 MG TABLET PO PRN (12:34)
[2019-08-02] MEDS: CLINDAMYCIN INJ 600 MG in PREMIX 1 EACH IV SCH ×2 (15:36→21:06)
[2019-08-02] MEDS: ENOXAPARIN 30 MG/0.3 ML SYRINGE SUBCUT SCH (15:36)
[2019-08-02] MEDS: guaiFENesin 200 MG/10 ML UDCUP PEG SCH (18:18)
[2019-08-02 19:41] LABS: Apearance,Urine Slightly Hazy (Clear); Bacteria,Urine Occasional /HPF (Few); Bilirubin,Urine Negative (Negative); Blood, Urine Moderate mg/dL (Negative); Glucose,Urine (UA) Negative (Negative); Ketones,Urine Negative (Negative); Nitrite,Urine Negative (Negative); Protein,Urine 30 MG/DL; RBC,Urine 8 /HPF (0-4); Urine Color Yellow (Yellow); Urine Specific Gravity 1.006 (1.001-1.035); Urine Urobilinogen < 2.0 EU/DL (0.2-1.0); WBC,Urine 51 /HPF (0-6)
[2019-08-03] MEDS: guaiFENesin 200 MG/10 ML UDCUP PEG SCH ×3 (02:16→16:35)
[2019-08-03] MEDS: CLINDAMYCIN INJ 600 MG in PREMIX 1 EACH IV SCH ×2 (06:39→16:35)
[2019-08-03 06:41] LABS: Basophils # 0.1 10*3/uL (0.0-0.2); Basophils % 0.5 % (0.0-0.8); Eosinophils # 0.2 10*3/uL (0.0-0.87); Eosinophils % 2.4 % (0.00-10.9); Hematocrit 23.6 VOL% (35.7-47.0); Hemoglobin 7.2 GM/DL (12.0-16.0); Immature Granulocytes % 1.1 %; Immature Granulocytes Absolute 0.11 #; Lymphocytes # 0.8 10*3/uL (1.4-4.0); Lymphocytes % 7.8 % (21.3-54.2); Mean Corpuscular HGB Conc 30.5 GM/DL (32-36); Mean Corpuscular Volume 87.4 FL (87-102); Mean Platelet Volume 12.1 FL (9.6-12.0); Monocytes % 14.6 % (1.7-12.7); Neutrophils % 73.6 % (38.7-73.9); Platelet Count 302 T/CUMM (130-400); Red Cell Distribution Width 16.6 % (9.3-17.3); White Blood Count 9.9 T/CUMM (4-12)
[2019-08-03 08:34] LABS: Osmolality,Calculated 278.4 MOS/KG (273-304)
[2019-08-03] MEDS ORDERED: SODIUM CHLORIDE 0.9% 1,000 ML IV PRN (08:41)
[2019-08-03] MEDS: FERROUS SULFATE 300 MG/5 ML UDCUP PEG SCH ×3 (09:31→21:01)
[2019-08-03] MEDS: DOCUSATE SODIUM 100 MG/10 ML UDCUP PEG SCH ×2 (09:31→21:01)
[2019-08-03] MEDS: MIRTAZAPINE 15 MG TABLET PO SCH (09:31)
[2019-08-03] MEDS: MULTIVITAMIN (CENTRUM) TABLET PO SCH (09:32)
[2019-08-03] MEDS: DONEPEZIL 10 MG TABLET PO SCH (09:32)
[2019-08-03] MEDS: ATORVASTATIN 20 MG TABLET PO SCH (09:32)
[2019-08-03] MEDS: CINACALCET 30 MG TABLET PO SCH (09:32)
[2019-08-03] MEDS: MEMANTINE 10 MG TABLET PO SCH ×2 (09:32→21:01)
[2019-08-03] MEDS: OMEPRAZOLE ODT 20 MG TABLET PER TUBE SCH (09:32)
[2019-08-03] MEDS: amLODIPine 5 MG TABLET PO SCH (09:32)
[2019-08-03] MEDS: cefTRIAXone 1,000 MG in SYRINGE 1 EACH IV SCH (11:33)
[2019-08-03] MEDS: ENOXAPARIN 30 MG/0.3 ML SYRINGE SUBCUT SCH (14:37)
[2019-08-03 16:56] LABS: Hematocrit 26.3 VOL% (35.7-47.0); Hemoglobin 8.2 GM/DL (12.0-16.0)
[2019-08-04] MEDS: CLINDAMYCIN INJ 600 MG in PREMIX 1 EACH IV SCH ×3 (00:03→15:42)
[2019-08-04] MEDS: guaiFENesin 200 MG/10 ML UDCUP PEG SCH ×3 (03:01→17:20)
[2019-08-04 06:52] LABS: Calcium 8.8 MG/DL (8.5-10.1); Osmolality,Calculated 276.5 MOS/KG (273-304)
[2019-08-04 08:46] LABS: Basophils % 0.5 % (0.0-0.8); Eosinophils # 0.7 10*3/uL (0.0-0.87); Eosinophils % 8.2 % (0.00-10.9); Hematocrit 29.7 VOL% (35.7-47.0); Hemoglobin 9.1 GM/DL (12.0-16.0); Immature Granulocytes Absolute 0.08 #; Lymphocytes % 12.7 % (21.3-54.2); Mean Corpuscular HGB Conc 30.6 GM/DL (32-36); Mean Corpuscular Volume 88.1 FL (87-102); Mean Platelet Volume 11.4 FL (9.6-12.0); Monocytes % 17.1 % (1.7-12.7); Neutrophils % 60.5 % (38.7-73.9); Platelet Count 323 T/CUMM (130-400); Red Blood Count 3.37 MC/CUMM (3.8-5.5); Red Cell Distribution Width 16.1 % (9.3-17.3); White Blood Count 7.9 T/CUMM (4-12)
[2019-08-04] MEDS: FERROUS SULFATE 300 MG/5 ML UDCUP PEG SCH ×3 (08:51→20:57)
[2019-08-04] MEDS: DOCUSATE SODIUM 100 MG/10 ML UDCUP PEG SCH ×2 (08:51→20:57)
[2019-08-04] MEDS: ATORVASTATIN 20 MG TABLET PO SCH (08:52)
[2019-08-04] MEDS: MULTIVITAMIN (CENTRUM) TABLET PO SCH (08:52)
[2019-08-04] MEDS: OMEPRAZOLE ODT 20 MG TABLET PER TUBE SCH (08:52)
[2019-08-04] MEDS: amLODIPine 5 MG TABLET PO SCH (08:52)
[2019-08-04] MEDS: DONEPEZIL 10 MG TABLET PO SCH (08:53)
[2019-08-04] MEDS: MIRTAZAPINE 15 MG TABLET PO SCH (08:53)
[2019-08-04] MEDS: CINACALCET 30 MG TABLET PO SCH (08:53)
[2019-08-04] MEDS: MEMANTINE 10 MG TABLET PO SCH ×2 (08:54→20:57)
[2019-08-04 09:06] LABS: Eosinophils 8 % (0-10); Hypochromasia 1+; Lymphocytes 7 % (20-55); Ovalocytes Slight; Platelet Estimate Adequate; Segmented Neutrophils 68 % (50-85); Total Cells Counted 100
[2019-08-04] MEDS: cefTRIAXone 1,000 MG in SYRINGE 1 EACH IV SCH (11:01)
[2019-08-04] MEDS: ENOXAPARIN 30 MG/0.3 ML SYRINGE SUBCUT SCH (14:58)
[2019-08-05] MEDS: CLINDAMYCIN INJ 600 MG in PREMIX 1 EACH IV SCH ×2 (00:50→09:36)
[2019-08-05] MEDS: guaiFENesin 200 MG/10 ML UDCUP PEG SCH ×3 (00:50→17:00)
[2019-08-05] MEDS: DOCUSATE SODIUM 100 MG/10 ML UDCUP PEG SCH ×2 (07:15→20:14)
[2019-08-05] MEDS: ACETAMINOPHEN 325 MG TABLET PO PRN (07:15)
[2019-08-05] MEDS: MULTIVITAMIN (CENTRUM) TABLET PO SCH (07:15)
[2019-08-05] MEDS: FERROUS SULFATE 300 MG/5 ML UDCUP PEG SCH ×3 (07:15→20:14)
[2019-08-05] MEDS ORDERED: VANCOMYCIN INJ 750 MG in SODIUM CHLORIDE 0.9% 250 ML IV PRN (09:36)
[2019-08-05] MEDS: DONEPEZIL 10 MG TABLET PO SCH (09:37)
[2019-08-05] MEDS: CINACALCET 30 MG TABLET PO SCH (09:38)
[2019-08-05] MEDS: MEMANTINE 10 MG TABLET PO SCH ×2 (09:38→20:14)
[2019-08-05] MEDS: OMEPRAZOLE ODT 20 MG TABLET PER TUBE SCH (09:39)
[2019-08-05] MEDS: MIRTAZAPINE 15 MG TABLET PO SCH (09:39)
[2019-08-05] MEDS: ATORVASTATIN 20 MG TABLET PO SCH (09:40)
[2019-08-05 09:51] LABS: Basophils % 0.5 % (0.0-0.8); Eosinophils # 0.6 10*3/uL (0.0-0.87); Eosinophils % 7.1 % (0.00-10.9); Hematocrit 26.8 VOL% (35.7-47.0); Hemoglobin 8.3 GM/DL (12.0-16.0); Immature Granulocytes % 1.7 %; Immature Granulocytes Absolute 0.15 #; Lymphocytes # 0.9 10*3/uL (1.4-4.0); Lymphocytes % 10.8 % (21.3-54.2); Mean Corpuscular Volume 86.5 FL (87-102); Mean Platelet Volume 11.2 FL (9.6-12.0); Monocytes % 18.2 % (1.7-12.7); Neutrophils % 61.7 % (38.7-73.9); Platelet Count 342 T/CUMM (130-400); Red Cell Distribution Width 16.1 % (9.3-17.3); White Blood Count 8.6 T/CUMM (4-12)
[2019-08-05 10:18] LABS: Osmolality,Calculated 276.7 MOS/KG (273-304)
[2019-08-05 10:26] LABS: Eosinophils 9 % (0-10); Hypochromasia 1+; Lymphocytes 10 % (20-55); Ovalocytes Slight; Platelet Estimate Adequate; Segmented Neutrophils 71 % (50-85); Total Cells Counted 100
[2019-08-05] MEDS: amLODIPine 5 MG TABLET PO SCH (10:58)
[2019-08-05] MEDS: CEFEPIME 1,000 MG in SODIUM CHLORIDE 0.9% 100 ML IV SCH ×2 (11:09→23:07)
[2019-08-05] MEDS ORDERED: VANCOMYCIN INJ 1,000 MG in SODIUM CHLORIDE 0.9% 250 ML IV ONE (11:30)
[2019-08-05] MEDS: ENOXAPARIN 30 MG/0.3 ML SYRINGE SUBCUT SCH (14:33)
[2019-08-05 15:09] LABS: ABG Base Excess 5.2 MMOL/L (-2.5-2.5); ABG HCO3 29.1 MMOL/L (20-26); ABG Oxygen Saturation 91.2 % (95-100); ABG PCO2 38.9 MM HG (35-48); ABG PH 7.481 (7.35-7.45); ABG PO2 56.4 MM HG (80-95); ABG TCO2 26.9 MMOL/L (23-27)
[2019-08-05 16:58] LABS: Ferritin 974.9 ng/ml (8-252)
[2019-08-06] MEDS: guaiFENesin 200 MG/10 ML UDCUP PEG SCH ×3 (01:29→16:37)
[2019-08-06] MEDS: LABETALOL 20 MG/4 ML SYRINGE IV PRN ×2 (01:32→14:02)
[2019-08-06 07:04] LABS: Basophils # 0.1 10*3/uL (0.0-0.2); Basophils % 0.5 % (0.0-0.8); Eosinophils # 0.8 10*3/uL (0.0-0.87); Eosinophils % 7.3 % (0.00-10.9); Hematocrit 30.1 VOL% (35.7-47.0); Immature Granulocytes % 1.9 %; Lymphocytes # 0.9 10*3/uL (1.4-4.0); Lymphocytes % 8.7 % (21.3-54.2); Mean Corpuscular HGB Conc 29.9 GM/DL (32-36); Mean Corpuscular Volume 89.9 FL (87-102); Mean Platelet Volume 11.4 FL (9.6-12.0); Neutrophils % 67.6 % (38.7-73.9); Platelet Count 426 T/CUMM (130-400); Red Blood Count 3.35 MC/CUMM (3.8-5.5); Red Cell Distribution Width 16.4 % (9.3-17.3); White Blood Count 10.6 T/CUMM (4-12)
[2019-08-06 07:13] LABS: Calcium 9.3 MG/DL (8.5-10.1); Osmolality,Calculated 283.2 MOS/KG (273-304)
[2019-08-06 07:40] LABS: ABG Base Excess 5.5 MMOL/L (-2.5-2.5); ABG HCO3 29.3 MMOL/L (20-26); ABG Oxygen Saturation 91.1 % (95-100); ABG PCO2 33.9 MM HG (35-48); ABG PH 7.531 (7.35-7.45); ABG PO2 52.8 MM HG (80-95); ABG TCO2 26.3 MMOL/L (23-27); Pt O2 Delivery Device Other
[2019-08-06] MEDS ORDERED: FUROSEMIDE 40 MG/4 ML VIAL IV ONE (08:16)
[2019-08-06] MEDS: DOCUSATE SODIUM 100 MG/10 ML UDCUP PEG SCH ×2 (08:18→20:30)
[2019-08-06] MEDS: ATORVASTATIN 20 MG TABLET PO SCH (08:19)
[2019-08-06] MEDS: CINACALCET 30 MG TABLET PO SCH (08:19)
[2019-08-06] MEDS: MULTIVITAMIN LIQUID (CENTRUM) 60 ML BOTTLE NG SCH (08:19)
[2019-08-06] MEDS: MIRTAZAPINE 15 MG TABLET PO SCH (08:19)
[2019-08-06] MEDS: FERROUS SULFATE 300 MG/5 ML UDCUP PEG SCH ×3 (08:19→20:30)
[2019-08-06] MEDS: DONEPEZIL 10 MG TABLET PO SCH (08:19)
[2019-08-06] MEDS: MEMANTINE 10 MG TABLET PO SCH ×2 (08:19→20:30)
[2019-08-06] MEDS: OMEPRAZOLE ODT 20 MG TABLET PER TUBE SCH (08:19)
[2019-08-06] MEDS: amLODIPine 5 MG TABLET PO SCH (08:19)
[2019-08-06] MEDS: CEFEPIME 1,000 MG in SODIUM CHLORIDE 0.9% 100 ML IV SCH ×2 (12:26→22:36)
[2019-08-06] MEDS ORDERED: DIGOXIN 0.5 MG/2 ML AMP IV ONE ×2 (12:37→14:00)
[2019-08-06] MEDS: HEPARIN DRIP 25,000 UNITS/500 ML PREMIX IV SCH (14:06)
[2019-08-06 15:38] LABS: ABG Base Excess 4.8 MMOL/L (-2.5-2.5); ABG HCO3 28.1 MMOL/L (20-26); ABG Oxygen Saturation 54.9 % (95-100); ABG PCO2 42.6 MM HG (35-48); ABG PH 7.446 (7.35-7.45); ABG TCO2 27.4 MMOL/L (23-27)
[2019-08-06 15:40] LABS: ABG PO2 30.7 MM HG (80-95)
[2019-08-06] MEDS: cloNIDine 0.3 MG/24 HR PATCH TRANSDERM SCH (16:15)
[2019-08-06 20:25] LABS: INR 1.2; PT Patient Result 12.7 SECS (9.8-11.9); Partial Thromboplastin Time 22.9 SECS (23.9-33.8)
[2019-08-07] MEDS: guaiFENesin 200 MG/10 ML UDCUP PEG SCH ×3 (00:47→17:33)
[2019-08-07 03:57] LABS: ABG PH 7.533 (7.35-7.45)
[2019-08-07 03:58] LABS: ABG HCO3 27.5 MMOL/L (20-26); ABG PCO2 33.4 MM HG (35-48); ABG TCO2 28.5 MMOL/L (23-27)
[2019-08-07 03:59] LABS: ABG Base Excess 4.7 MMOL/L (-2.5-2.5)
[2019-08-07 04:39] LABS: Calcium 9.2 MG/DL (8.5-10.1); Osmolality,Calculated 280.7 MOS/KG (273-304)
[2019-08-07] MEDS ORDERED: hydrALAZINE 20 MG/1 ML VIAL IV PRN (08:13)
[2019-08-07] MEDS: FERROUS SULFATE 300 MG/5 ML UDCUP PEG SCH ×3 (08:14→21:33)
[2019-08-07] MEDS: ATORVASTATIN 20 MG TABLET PO SCH (08:14)
[2019-08-07] MEDS: DIGOXIN 0.25 MG TABLET PO SCH ×2 (08:14→14:39)
[2019-08-07] MEDS: amLODIPine 5 MG TABLET PO SCH (08:14)
[2019-08-07] MEDS: MIRTAZAPINE 15 MG TABLET PO SCH (08:14)
[2019-08-07] MEDS: DONEPEZIL 10 MG TABLET PO SCH (08:14)
[2019-08-07] MEDS: CINACALCET 30 MG TABLET PO SCH (08:14)
[2019-08-07] MEDS: DOCUSATE SODIUM 100 MG/10 ML UDCUP PEG SCH ×2 (08:14→21:33)
[2019-08-07] MEDS: OMEPRAZOLE ODT 20 MG TABLET PER TUBE SCH (08:14)
[2019-08-07] MEDS: MEMANTINE 10 MG TABLET PO SCH ×2 (08:14→21:33)
[2019-08-07] MEDS: MULTIVITAMIN LIQUID (CENTRUM) 60 ML BOTTLE NG SCH (08:24)
[2019-08-07] MEDS ORDERED: VANCOMYCIN INJ 750 MG in SODIUM CHLORIDE 0.9% 250 ML IV ONE (10:00)
[2019-08-07] MEDS: CEFEPIME 1,000 MG in SODIUM CHLORIDE 0.9% 100 ML IV SCH ×2 (11:38→23:27)
[2019-08-07 17:42] LABS: INR 1.2; PT Patient Result 13.1 SECS (9.8-11.9); Partial Thromboplastin Time 49.5 SECS (23.9-33.8)
[2019-08-07] MEDS: HEPARIN DRIP 25,000 UNITS/500 ML PREMIX IV SCH (18:13)
[2019-08-07 23:02] LABS: INR 1.2; Partial Thromboplastin Time 47.2 SECS (23.9-33.8)
[2019-08-08] MEDS: guaiFENesin 200 MG/10 ML UDCUP PEG SCH ×3 (01:52→17:21)
[2019-08-08 08:15] LABS: Basophils % 0.3 % (0.0-0.8); Eosinophils # 0.8 10*3/uL (0.0-0.87); Eosinophils % 6.3 % (0.00-10.9); Hematocrit 23.8 VOL% (35.7-47.0); Immature Granulocytes % 2.4 %; Lymphocytes # 1.3 10*3/uL (1.4-4.0); Lymphocytes % 10.1 % (21.3-54.2); Mean Corpuscular HGB Conc 29.8 GM/DL (32-36); Mean Corpuscular Volume 91.5 FL (87-102); Mean Platelet Volume 11.2 FL (9.6-12.0); Neutrophils % 65.9 % (38.7-73.9); Platelet Count 460 T/CUMM (130-400); Red Cell Distribution Width 16.2 % (9.3-17.3); White Blood Count 12.7 T/CUMM (4-12)
[2019-08-08 08:18] LABS: Hemoglobin 7.1 GM/DL (12.0-16.0)
[2019-08-08 08:20] LABS: Osmolality,Calculated 292.1 MOS/KG (273-304)
[2019-08-08] MEDS: OMEPRAZOLE ODT 20 MG TABLET PER TUBE SCH (08:41)
[2019-08-08] MEDS: amLODIPine 10 MG TABLET PO SCH (08:41)
[2019-08-08] MEDS: FERROUS SULFATE 300 MG/5 ML UDCUP PEG SCH ×3 (08:41→20:42)
[2019-08-08] MEDS: CINACALCET 30 MG TABLET PO SCH (08:41)
[2019-08-08] MEDS: MULTIVITAMIN LIQUID (CENTRUM) 60 ML BOTTLE NG SCH (08:41)
[2019-08-08] MEDS: DONEPEZIL 10 MG TABLET PO SCH (08:41)
[2019-08-08] MEDS: MEMANTINE 10 MG TABLET PO SCH ×2 (08:41→20:42)
[2019-08-08] MEDS: ATORVASTATIN 20 MG TABLET PO SCH (08:41)
[2019-08-08] MEDS: ACETAMINOPHEN 325 MG TABLET PO PRN (09:15)
[2019-08-08] MEDS ORDERED: SODIUM CHLORIDE 0.9% 1,000 ML IV PRN (09:54)
[2019-08-08] MEDS: CEFEPIME 1,000 MG in SODIUM CHLORIDE 0.9% 100 ML IV SCH (10:14)
[2019-08-08] MEDS: HEPARIN DRIP 25,000 UNITS/500 ML PREMIX IV SCH ×2 (10:40→20:53)
[2019-08-08] MEDS: DIGOXIN 0.25 MG TABLET PO SCH (13:27)
[2019-08-09] MEDS: guaiFENesin 200 MG/10 ML UDCUP PEG SCH ×2 (02:11→09:24)
[2019-08-09 05:54] LABS: Basophils % 0.3 % (0.0-0.8); Eosinophils # 0.7 10*3/uL (0.0-0.87); Eosinophils % 5.1 % (0.00-10.9); Hematocrit 22.2 VOL% (35.7-47.0); Hemoglobin 6.8 GM/DL (12.0-16.0); Immature Granulocytes % 4.5 %; Immature Granulocytes Absolute 0.62 #; Lymphocytes # 1.5 10*3/uL (1.4-4.0); Lymphocytes % 10.8 % (21.3-54.2); Mean Corpuscular HGB Conc 30.6 GM/DL (32-36); Mean Corpuscular Volume 88.4 FL (87-102); Mean Platelet Volume 10.8 FL (9.6-12.0); Monocytes % 13.6 % (1.7-12.7); NRBC # 0.02 10*3/uL; Neutrophils % 65.7 % (38.7-73.9); Platelet Count 476 T/CUMM (130-400); Red Blood Count 2.51 MC/CUMM (3.8-5.5); Red Cell Distribution Width 16.2 % (9.3-17.3); White Blood Count 13.9 T/CUMM (4-12)
[2019-08-09 06:18] LABS: Osmolality,Calculated 288.4 MOS/KG (273-304)
[2019-08-09 06:25] LABS: Band Neutrophils 1 % (0-10); Eosinophils 6 % (0-10); Lymphocytes 11 % (20-55); Platelet Estimate Adequate; Segmented Neutrophils 67 % (50-85); Total Cells Counted 100
[2019-08-09 06:26] LABS: Hypochromasia 2+; Microcytosis 1+
[2019-08-09] MEDS ORDERED: SODIUM CHLORIDE 0.9% 1,000 ML IV PRN ×2 (07:09→14:00)
[2019-08-09] MEDS: MULTIVITAMIN LIQUID (CENTRUM) 60 ML BOTTLE NG SCH (09:00)
[2019-08-09] MEDS: FERROUS SULFATE 300 MG/5 ML UDCUP PEG SCH ×3 (09:23→20:33)
[2019-08-09] MEDS: CINACALCET 30 MG TABLET PO SCH (09:23)
[2019-08-09] MEDS: MEMANTINE 10 MG TABLET PO SCH ×2 (09:23→20:34)
[2019-08-09] MEDS: hydrALAZINE 25 MG TABLET PO SCH ×3 (09:23→20:33)
[2019-08-09] MEDS: amLODIPine 10 MG TABLET PO SCH (09:23)
[2019-08-09] MEDS: ATORVASTATIN 20 MG TABLET PO SCH (09:23)
[2019-08-09] MEDS: DONEPEZIL 10 MG TABLET PO SCH (09:23)
[2019-08-09] MEDS: OMEPRAZOLE ODT 20 MG TABLET PER TUBE SCH (09:24)
[2019-08-09] MEDS: PIPERACILLIN/TAZOBACTAM 3,375 MG in SODIUM CHLORIDE 0.9% 100 ML IV SCH (18:17)
[2019-08-09] MEDS: HEPARIN DRIP 25,000 UNITS/500 ML PREMIX IV SCH ×2 (22:55→22:57)
[2019-08-10] MEDS: hydrALAZINE 25 MG TABLET PO SCH ×3 (01:00→15:30)
[2019-08-10] MEDS: PIPERACILLIN/TAZOBACTAM 3,375 MG in SODIUM CHLORIDE 0.9% 100 ML IV SCH ×2 (01:10→14:45)
[2019-08-10 05:42] LABS: Basophils % 0.3 % (0.0-0.8); Eosinophils % 0.1 % (0.00-10.9); Hematocrit 29.5 VOL% (35.7-47.0); Hemoglobin 9.4 GM/DL (12.0-16.0); Immature Granulocytes % 3.9 %; Immature Granulocytes Absolute 0.53 #; Lymphocytes % 7.6 % (21.3-54.2); Mean Corpuscular HGB Conc 31.9 GM/DL (32-36); Mean Corpuscular Volume 87.5 FL (87-102); Mean Platelet Volume 10.9 FL (9.6-12.0); Monocytes % 8.8 % (1.7-12.7); Neutrophils % 79.3 % (38.7-73.9); Osmolality,Calculated 293.4 MOS/KG (273-304); Platelet Count 432 T/CUMM (130-400); Red Blood Count 3.37 MC/CUMM (3.8-5.5); Red Cell Distribution Width 15.4 % (9.3-17.3); White Blood Count 13.5 T/CUMM (4-12)
[2019-08-10 06:10] LABS: Band Neutrophils 2 % (0-10); Eosinophils 1 % (0-10); Hypochromasia 1+; Lymphocytes 4 % (20-55); Microcytosis 1+; Myelocytes 2 %; Platelet Estimate Increased; Segmented Neutrophils 90 % (50-85); Total Cells Counted 100
[2019-08-10] MEDS: MEMANTINE 10 MG TABLET PO SCH ×2 (08:00→20:24)
[2019-08-10] MEDS: FERROUS SULFATE 300 MG/5 ML UDCUP PEG SCH ×3 (08:00→20:24)
[2019-08-10] MEDS: ATORVASTATIN 20 MG TABLET PO SCH (08:00)
[2019-08-10] MEDS: OMEPRAZOLE ODT 20 MG TABLET PER TUBE SCH (08:00)
[2019-08-10] MEDS: DONEPEZIL 10 MG TABLET PO SCH (08:00)
[2019-08-10] MEDS: MULTIVITAMIN LIQUID (CENTRUM) 60 ML BOTTLE NG SCH (08:00)
[2019-08-10] MEDS: CINACALCET 30 MG TABLET PO SCH (08:00)
[2019-08-10] MEDS: amLODIPine 10 MG TABLET PO SCH (08:00)
[2019-08-10] MEDS ORDERED: DEXAMETHASONE 4 MG/1 ML VIAL IV SCH (15:30)
[2019-08-10] MEDS: DEXAMETHASONE 4 MG/1 ML VIAL IV SCH (15:30)
[2019-08-10] MEDS: FUROSEMIDE 40 MG/4 ML VIAL IV SCH (15:32)
[2019-08-10] MEDS: PANTOPRAZOLE 40 MG VIAL IV SCH (20:24)
[2019-08-11] MEDS: hydrALAZINE 25 MG TABLET PO SCH ×3 (00:12→15:35)
[2019-08-11] MEDS: PIPERACILLIN/TAZOBACTAM 3,375 MG in SODIUM CHLORIDE 0.9% 100 ML IV SCH ×2 (02:23→14:20)
[2019-08-11 04:53] LABS: Basophils % 0.3 % (0.0-0.8); Hematocrit 30.2 VOL% (35.7-47.0); Hemoglobin 9.4 GM/DL (12.0-16.0); Immature Granulocytes % 3.2 %; Lymphocytes # 1.1 10*3/uL (1.4-4.0); Lymphocytes % 6.9 % (21.3-54.2); Mean Corpuscular HGB Conc 31.1 GM/DL (32-36); Mean Corpuscular Volume 88.8 FL (87-102); Mean Platelet Volume 10.5 FL (9.6-12.0); Monocytes % 6.9 % (1.7-12.7); Neutrophils % 82.7 % (38.7-73.9); Platelet Count 535 T/CUMM (130-400); Red Cell Distribution Width 15.5 % (9.3-17.3); White Blood Count 15.7 T/CUMM (4-12)
[2019-08-11 05:11] LABS: Calcium 9.2 MG/DL (8.5-10.1); Osmolality,Calculated 302.2 MOS/KG (273-304)
[2019-08-11] MEDS: FUROSEMIDE 40 MG/4 ML VIAL IV SCH ×2 (08:28→15:35)
[2019-08-11] MEDS: MULTIVITAMIN LIQUID (CENTRUM) 60 ML BOTTLE NG SCH (08:29)
[2019-08-11] MEDS: FERROUS SULFATE 300 MG/5 ML UDCUP PEG SCH ×3 (08:29→20:33)
[2019-08-11] MEDS: DONEPEZIL 10 MG TABLET PO SCH (08:29)
[2019-08-11] MEDS: CINACALCET 30 MG TABLET PO SCH (08:29)
[2019-08-11] MEDS: ATORVASTATIN 20 MG TABLET PO SCH (08:29)
[2019-08-11] MEDS: MEMANTINE 10 MG TABLET PO SCH ×2 (08:29→20:33)
[2019-08-11] MEDS: amLODIPine 10 MG TABLET PO SCH (08:29)
[2019-08-11] MEDS: PANTOPRAZOLE 40 MG VIAL IV SCH ×2 (09:35→20:33)
[2019-08-11] MEDS: DEXAMETHASONE 4 MG/1 ML VIAL IV SCH (15:45)
[2019-08-11] MEDS: ZINC OXIDE PASTE 113 GM TUBE TOP SCH (20:33)
[2019-08-12] MEDS: hydrALAZINE 25 MG TABLET PO SCH ×3 (00:17→15:49)
[2019-08-12] MEDS: PIPERACILLIN/TAZOBACTAM 3,375 MG in SODIUM CHLORIDE 0.9% 100 ML IV SCH ×2 (00:32→13:17)
[2019-08-12 04:38] LABS: Basophils % 0.3 % (0.0-0.8); Hemoglobin 9.9 GM/DL (12.0-16.0); Immature Granulocytes % 4.1 %; Immature Granulocytes Absolute 0.56 #; Lymphocytes # 0.8 10*3/uL (1.4-4.0); Lymphocytes % 5.6 % (21.3-54.2); Mean Corpuscular HGB Conc 31.9 GM/DL (32-36); Mean Corpuscular Volume 86.4 FL (87-102); Mean Platelet Volume 10.4 FL (9.6-12.0); NRBC # 0.02 10*3/uL; Platelet Count 579 T/CUMM (130-400); Red Blood Count 3.59 MC/CUMM (3.8-5.5); Red Cell Distribution Width 15.5 % (9.3-17.3); White Blood Count 13.5 T/CUMM (4-12)
[2019-08-12 05:03] LABS: Calcium 9.1 MG/DL (8.5-10.1); Osmolality,Calculated 317.7 MOS/KG (273-304)
[2019-08-12 05:30] LABS: Hypochromasia 1+; Lymphocytes 3 % (20-55); Microcytosis Slight; Nucleated Red Blood Cells 1 (0-5); Platelet Estimate Increased; Segmented Neutrophils 92 % (50-85); Total Cells Counted 100
[2019-08-12] MEDS: MEMANTINE 10 MG TABLET PO SCH ×2 (09:00→21:13)
[2019-08-12] MEDS: CINACALCET 30 MG TABLET PO SCH (09:00)
[2019-08-12] MEDS: DONEPEZIL 10 MG TABLET PO SCH (09:00)
[2019-08-12] MEDS: ATORVASTATIN 20 MG TABLET PO SCH (09:00)
[2019-08-12] MEDS: ZINC OXIDE PASTE 113 GM TUBE TOP SCH ×2 (09:00→21:15)
[2019-08-12] MEDS: MULTIVITAMIN LIQUID (CENTRUM) 60 ML BOTTLE NG SCH (09:00)
[2019-08-12] MEDS: PANTOPRAZOLE 40 MG VIAL IV SCH ×2 (09:00→21:21)
[2019-08-12] MEDS: amLODIPine 10 MG TABLET PO SCH (09:00)
[2019-08-12] MEDS: FERROUS SULFATE 300 MG/5 ML UDCUP PEG SCH ×3 (09:00→21:13)
[2019-08-12] MEDS: DEXAMETHASONE 4 MG/1 ML VIAL IV SCH (15:49)
[2019-08-13] MEDS: PIPERACILLIN/TAZOBACTAM 3,375 MG in SODIUM CHLORIDE 0.9% 100 ML IV SCH ×2 (00:37→14:32)
[2019-08-13] MEDS: hydrALAZINE 25 MG TABLET PO SCH ×3 (01:42→16:55)
[2019-08-13 06:04] LABS: Basophils # 0.1 10*3/uL (0.0-0.2); Basophils % 0.7 % (0.0-0.8); Hematocrit 33.5 VOL% (35.7-47.0); Hemoglobin 10.7 GM/DL (12.0-16.0); Immature Granulocytes % 6.9 %; Immature Granulocytes Absolute 1.09 #; Lymphocytes # 0.9 10*3/uL (1.4-4.0); Lymphocytes % 5.7 % (21.3-54.2); Mean Corpuscular HGB Conc 31.9 GM/DL (32-36); Mean Corpuscular Volume 86.6 FL (87-102); Mean Platelet Volume 10.3 FL (9.6-12.0); Monocytes % 8.2 % (1.7-12.7); NRBC # 0.04 10*3/uL; Neutrophils % 78.5 % (38.7-73.9); Platelet Count 679 T/CUMM (130-400); Red Blood Count 3.87 MC/CUMM (3.8-5.5); White Blood Count 15.8 T/CUMM (4-12)
[2019-08-13 06:46] LABS: Calcium 9.3 MG/DL (8.5-10.1); Osmolality,Calculated 319.8 MOS/KG (273-304)
[2019-08-13] MEDS: cloNIDine 0.3 MG/24 HR PATCH TRANSDERM SCH (08:25)
[2019-08-13] MEDS: DONEPEZIL 10 MG TABLET PO SCH (08:25)
[2019-08-13] MEDS: PANTOPRAZOLE 40 MG VIAL IV SCH ×2 (08:25→22:15)
[2019-08-13] MEDS: amLODIPine 10 MG TABLET PO SCH (08:25)
[2019-08-13] MEDS: ZINC OXIDE PASTE 113 GM TUBE TOP SCH ×2 (08:26→21:55)
[2019-08-13] MEDS: CINACALCET 30 MG TABLET PO SCH (08:26)
[2019-08-13] MEDS: FERROUS SULFATE 300 MG/5 ML UDCUP PEG SCH ×3 (08:26→21:55)
[2019-08-13] MEDS: MEMANTINE 10 MG TABLET PO SCH ×2 (08:26→21:55)
[2019-08-13] MEDS: MULTIVITAMIN LIQUID (CENTRUM) 60 ML BOTTLE NG SCH (08:26)
[2019-08-13] MEDS: ATORVASTATIN 20 MG TABLET PO SCH (08:26)
[2019-08-13 11:10] LABS: Anisocytosis 1+; Band Neutrophils 1 % (0-10); Hypochromasia 2+; Lymphocytes 6 % (20-55); Macrocytosis Slight; Metamyelocytes 4 %; Myelocytes 3 %; Ovalocytes Few; Polychromasia Slight; Segmented Neutrophils 83 % (50-85); Total Cells Counted 100
[2019-08-13 11:11] LABS: Platelet Estimate Increased; Schistocytes Slight
[2019-08-13] MEDS: DEXAMETHASONE 4 MG/1 ML VIAL IV SCH (14:32)
[2019-08-13] MEDS ORDERED: ACETAMINOPHEN 325 MG/10.15 ML UDCUP PEG PRN (15:31)
[2019-08-14] MEDS: PIPERACILLIN/TAZOBACTAM 3,375 MG in SODIUM CHLORIDE 0.9% 100 ML IV SCH ×2 (03:49→14:34)
[2019-08-14] MEDS: hydrALAZINE 25 MG TABLET PO SCH ×3 (06:12→21:50)
[2019-08-14 06:13] LABS: Basophils # 0.1 10*3/uL (0.0-0.2); Basophils % 0.5 % (0.0-0.8); Hematocrit 29.5 VOL% (35.7-47.0); Hemoglobin 9.5 GM/DL (12.0-16.0); Immature Granulocytes % 6.9 %; Immature Granulocytes Absolute 0.86 #; Lymphocytes # 0.9 10*3/uL (1.4-4.0); Lymphocytes % 7.3 % (21.3-54.2); Mean Corpuscular HGB Conc 32.2 GM/DL (32-36); Mean Corpuscular Volume 86.8 FL (87-102); Mean Platelet Volume 10.4 FL (9.6-12.0); Monocytes % 9.3 % (1.7-12.7); NRBC # 0.03 10*3/uL; Platelet Count 542 T/CUMM (130-400); White Blood Count 12.4 T/CUMM (4-12)
[2019-08-14 06:35] LABS: Calcium 8.6 MG/DL (8.5-10.1); Osmolality,Calculated 329.4 MOS/KG (273-304)
[2019-08-14] MEDS: CINACALCET 30 MG TABLET PO SCH (08:32)
[2019-08-14] MEDS: MULTIVITAMIN LIQUID (CENTRUM) 60 ML BOTTLE NG SCH (08:32)
[2019-08-14] MEDS: FERROUS SULFATE 300 MG/5 ML UDCUP PEG SCH ×3 (08:32→21:50)
[2019-08-14] MEDS: ZINC OXIDE PASTE 113 GM TUBE TOP SCH ×2 (08:33→21:50)
[2019-08-14] MEDS: PANTOPRAZOLE 40 MG VIAL IV SCH ×2 (08:33→20:44)
[2019-08-14] MEDS: ATORVASTATIN 20 MG TABLET PO SCH (08:33)
[2019-08-14] MEDS: MEMANTINE 10 MG TABLET PO SCH ×2 (08:33→21:50)
[2019-08-14] MEDS: amLODIPine 10 MG TABLET PO SCH (08:33)
[2019-08-14] MEDS: DONEPEZIL 10 MG TABLET PO SCH (08:33)
[2019-08-14 10:35] LABS: Band Neutrophils 1 % (0-10); Lymphocytes 7 % (20-55); Metamyelocytes 5 %; Myelocytes 3 %; Segmented Neutrophils 80 % (50-85); Total Cells Counted 100
[2019-08-14 10:36] LABS: Hypochromasia 3+; Platelet Estimate Increased; Polychromasia Slight
[2019-08-14 10:37] LABS: Ovalocytes Few
[2019-08-14] MEDS: DEXAMETHASONE 4 MG/1 ML VIAL IV SCH (14:38)
[2019-08-15] MEDS: PIPERACILLIN/TAZOBACTAM 3,375 MG in SODIUM CHLORIDE 0.9% 100 ML IV SCH ×2 (01:58→14:49)
[2019-08-15 05:51] LABS: Basophils # 0.1 10*3/uL (0.0-0.2); Basophils % 0.5 % (0.0-0.8); Eosinophils % 0.2 % (0.00-10.9); Hematocrit 30.8 VOL% (35.7-47.0); Hemoglobin 9.7 GM/DL (12.0-16.0); Immature Granulocytes % 7.1 %; Immature Granulocytes Absolute 0.93 #; Lymphocytes # 1.3 10*3/uL (1.4-4.0); Lymphocytes % 9.5 % (21.3-54.2); Mean Corpuscular HGB Conc 31.5 GM/DL (32-36); Mean Corpuscular Volume 87.5 FL (87-102); Mean Platelet Volume 10.4 FL (9.6-12.0); Monocytes % 9.8 % (1.7-12.7); NRBC # 0.05 10*3/uL; Neutrophils % 72.9 % (38.7-73.9); Platelet Count 568 T/CUMM (130-400); Red Blood Count 3.52 MC/CUMM (3.8-5.5); Red Cell Distribution Width 16.5 % (9.3-17.3); White Blood Count 13.1 T/CUMM (4-12)
[2019-08-15 06:10] LABS: Calcium 8.6 MG/DL (8.5-10.1); Osmolality,Calculated 328.3 MOS/KG (273-304)
[2019-08-15] MEDS: hydrALAZINE 25 MG TABLET PO SCH ×3 (06:10→21:53)
[2019-08-15 06:14] LABS: Band Neutrophils 1 % (0-10); Lymphocytes 7 % (20-55); Metamyelocytes 2 %; Promyelocytes 1 %; Segmented Neutrophils 85 % (50-85); Total Cells Counted 100
[2019-08-15 06:15] LABS: Hypochromasia 1+; Microcytosis 1+
[2019-08-15] MEDS: MULTIVITAMIN LIQUID (CENTRUM) 60 ML BOTTLE NG SCH (08:58)
[2019-08-15] MEDS: amLODIPine 10 MG TABLET PO SCH (08:58)
[2019-08-15] MEDS: PANTOPRAZOLE 40 MG VIAL IV SCH ×2 (08:59→21:53)
[2019-08-15] MEDS: MEMANTINE 10 MG TABLET PO SCH ×2 (08:59→21:53)
[2019-08-15] MEDS: ATORVASTATIN 20 MG TABLET PO SCH (08:59)
[2019-08-15] MEDS: CINACALCET 30 MG TABLET PO SCH (08:59)
[2019-08-15] MEDS: FERROUS SULFATE 300 MG/5 ML UDCUP PEG SCH ×3 (08:59→21:52)
[2019-08-15] MEDS: DONEPEZIL 10 MG TABLET PO SCH (08:59)
[2019-08-15] MEDS: ZINC OXIDE PASTE 113 GM TUBE TOP SCH ×2 (10:04→21:52)
[2019-08-15] MEDS: DEXAMETHASONE 4 MG/1 ML VIAL IV SCH (14:50)
[2019-08-16] MEDS: PIPERACILLIN/TAZOBACTAM 3,375 MG in SODIUM CHLORIDE 0.9% 100 ML IV SCH ×2 (02:58→14:36)
[2019-08-16 05:19] LABS: Basophils # 0.1 10*3/uL (0.0-0.2); Basophils % 0.6 % (0.0-0.8); Hematocrit 32.5 VOL% (35.7-47.0); Hemoglobin 10.2 GM/DL (12.0-16.0); Immature Granulocytes Absolute 0.67 #; Lymphocytes # 0.5 10*3/uL (1.4-4.0); Lymphocytes % 5.5 % (21.3-54.2); Mean Corpuscular HGB Conc 31.4 GM/DL (32-36); Mean Corpuscular Volume 87.8 FL (87-102); Mean Platelet Volume 10.5 FL (9.6-12.0); Monocytes % 4.4 % (1.7-12.7); NRBC # 0.02 10*3/uL; Neutrophils % 82.5 % (38.7-73.9); Platelet Count 542 T/CUMM (130-400); Red Cell Distribution Width 16.9 % (9.3-17.3); White Blood Count 9.6 T/CUMM (4-12)
[2019-08-16 05:48] LABS: Osmolality,Calculated 337.8 MOS/KG (273-304)
[2019-08-16 06:13] LABS: Hypochromasia 1+; Lymphocytes 6 % (20-55); Metamyelocytes 2 %; Microcytosis 1+; Myelocytes 2 %; Ovalocytes Slight; Segmented Neutrophils 84 % (50-85); Total Cells Counted 100
[2019-08-16] MEDS: hydrALAZINE 25 MG TABLET PO SCH ×3 (06:17→21:31)
[2019-08-16] MEDS: MULTIVITAMIN LIQUID (CENTRUM) 60 ML BOTTLE NG SCH (09:02)
[2019-08-16] MEDS: DONEPEZIL 10 MG TABLET PO SCH (09:02)
[2019-08-16] MEDS: CINACALCET 30 MG TABLET PO SCH (09:02)
[2019-08-16] MEDS: PANTOPRAZOLE 40 MG TABLET PO SCH ×2 (09:02→21:31)
[2019-08-16] MEDS: FERROUS SULFATE 300 MG/5 ML UDCUP PEG SCH ×3 (09:02→21:31)
[2019-08-16] MEDS: DEXAMETHASONE 4 MG/1 ML VIAL IV SCH (09:03)
[2019-08-16] MEDS: amLODIPine 10 MG TABLET PO SCH (09:03)
[2019-08-16] MEDS: ZINC OXIDE PASTE 113 GM TUBE TOP SCH ×2 (09:03→21:31)
[2019-08-16] MEDS: MEMANTINE 10 MG TABLET PO SCH ×2 (09:03→21:31)
[2019-08-16] MEDS: ATORVASTATIN 20 MG TABLET PO SCH (09:03)
[2019-08-17] MEDS: hydrALAZINE 25 MG TABLET PO SCH (06:11)
[2019-08-17 08:19] VITALS: BP 106/43
[2019-08-17] MEDS: MULTIVITAMIN LIQUID (CENTRUM) 60 ML BOTTLE NG SCH (08:19)
[2019-08-17] MEDS: DEXAMETHASONE 4 MG/1 ML VIAL IV SCH (08:20)
[2019-08-17] MEDS: FERROUS SULFATE 300 MG/5 ML UDCUP PEG SCH (08:20)
[2019-08-17] MEDS: CINACALCET 30 MG TABLET PO SCH (08:20)
[2019-08-17] MEDS: ATORVASTATIN 20 MG TABLET PO SCH (08:21)
[2019-08-17] MEDS: amLODIPine 10 MG TABLET PO SCH (08:21)
[2019-08-17] MEDS: ZINC OXIDE PASTE 113 GM TUBE TOP SCH (08:21)
[2019-08-17] MEDS: PANTOPRAZOLE 40 MG TABLET PO SCH (08:21)
[2019-08-17] MEDS: DONEPEZIL 10 MG TABLET PO SCH (08:21)
[2019-08-17] MEDS: MEMANTINE 10 MG TABLET PO SCH (08:21)
== END 2019-08-17 11:12 | DRG 177 ==
LOC: EDBD → EDUNIT# → N.ED 11:18 → SUPCPDRO 14:24 → N.EDINP 14:24 → SUATTDRO 14:24 → N.3E 17:22 → N.CC 08-05 16:23 → N.2E 08-12 15:25
PROVIDERS: ADMIT Family Medicine; ATTEND Internal Medicine Geriatric Medicine
PROC: EGDWPEG (ICD-10-PCS; 2019-07-29 12:20)

== ENCOUNTER 2019-08-19 16:10 | Inpatient (IN) ==
[2019-08-19] MEDS ORDERED: SODIUM CHLORIDE 0.9% 500 ML IV STA (16:45)
[2019-08-19 17:44] LABS: Basophils # 0.1 10*3/uL (0.0-0.2); Basophils % 0.2 % (0.0-0.8); Hematocrit 31.4 VOL% (35.7-47.0); Hemoglobin 9.8 GM/DL (12.0-16.0); Immature Granulocytes % 1.4 %; Immature Granulocytes Absolute 0.29 #; Lymphocytes # 0.7 10*3/uL (1.4-4.0); Mean Corpuscular HGB Conc 31.2 GM/DL (32-36); Mean Platelet Volume 10.8 FL (9.6-12.0); Monocytes % 6.6 % (1.7-12.7); NRBC # 0.11 10*3/uL; Neutrophils % 88.8 % (38.7-73.9); Platelet Count 379 T/CUMM (130-400); Red Blood Count 3.49 MC/CUMM (3.8-5.5); Red Cell Distribution Width 18.1 % (9.3-17.3); White Blood Count 21.3 T/CUMM (4-12)
[2019-08-19 18:01] LABS: Apearance,Urine Slightly Hazy (Clear); Bilirubin,Urine Negative (Negative); Blood, Urine Negative (Negative); Glucose,Urine (UA) Negative (Negative); Ketones,Urine Negative (Negative); Nitrite,Urine Negative (Negative); Protein,Urine 30 MG/DL; RBC,Urine 1 /HPF (0-4); Urine Color Yellow (Yellow); Urine Specific Gravity 1.011 (1.001-1.035); Urine Urobilinogen < 2.0 EU/DL (0.2-1.0)
[2019-08-19] MEDS ORDERED: LEVOFLOXACIN INJ 500 MG in PREMIX 1 EACH IV STA (18:01)
[2019-08-19 18:10] LABS: Alanine Aminotransferase 49 U/L (13-56); Alkaline Phosphatase 179 U/L (45-117); Aspartate Amino Transferase 30 U/L (0-37); Bilirubin,Total < 0.39 MG/DL (0.2-1.0); Blood Urea Nitrogen 162 MG/DL (7-18); Calcium 8.8 MG/DL (8.5-10.1); Estimated Glom Filtration Rate 14 ML/MIN; Glucose 120 MG/DL (74-106); Osmolality,Calculated 347.3 MOS/KG (273-304); Total Protein 6.3 G/DL (6.4-8.3)
[2019-08-19 18:21] LABS: Lymphocytes 3 % (20-55); Nucleated Red Blood Cells 1 (0-5); Platelet Estimate Normal; Segmented Neutrophils 92 % (50-85); Total Cells Counted 100
[2019-08-19 18:22] LABS: Anisocytosis Slight; Macrocytosis Slight; Microcytosis Slight
[2019-08-19] MEDS ORDERED: GLUCAGON 1 MG VIAL IM PRN (18:57)
[2019-08-19] MEDS ORDERED: DEXTROSE 10% 250 ML BAG IV PRN (18:57)
[2019-08-19] MEDS ORDERED: ONDANSETRON 4 MG/2 ML VIAL IV PRN (19:02)
[2019-08-19] MEDS ORDERED: CEFTAROLINE 200 MG in SODIUM CHLORIDE 0.9% 100 ML IV SCH (19:30)
[2019-08-19] MEDS ORDERED: DEXTROSE 5% NACL 0.45% 1,000 ML IV SCH (19:30)
[2019-08-19] MEDS: HEPARIN 5,000 UNIT/1 ML VIAL SUBCUT SCH (21:12)
[2019-08-19] MEDS: CLINDAMYCIN INJ 600 MG in PREMIX 1 EACH IV SCH (21:17)
[2019-08-20] MEDS: CLINDAMYCIN INJ 600 MG in PREMIX 1 EACH IV SCH ×3 (05:18→20:48)
[2019-08-20 06:06] LABS: Basophils % 0.2 % (0.0-0.8); Eosinophils # 0.1 10*3/uL (0.0-0.87); Eosinophils % 0.5 % (0.00-10.9); Hematocrit 27.1 VOL% (35.7-47.0); Hemoglobin 8.7 GM/DL (12.0-16.0); Immature Granulocytes % 1.1 %; Immature Granulocytes Absolute 0.21 #; Lymphocytes # 0.9 10*3/uL (1.4-4.0); Lymphocytes % 4.5 % (21.3-54.2); Mean Corpuscular HGB Conc 32.1 GM/DL (32-36); Mean Corpuscular Volume 88.3 FL (87-102); Mean Platelet Volume 10.9 FL (9.6-12.0); Monocytes % 7.2 % (1.7-12.7); NRBC # 0.06 10*3/uL; Neutrophils % 86.5 % (38.7-73.9); Platelet Count 327 T/CUMM (130-400); Red Blood Count 3.07 MC/CUMM (3.8-5.5); White Blood Count 19.4 T/CUMM (4-12)
[2019-08-20 06:26] LABS: Calcium 8.7 MG/DL (8.5-10.1); Osmolality,Calculated 346.9 MOS/KG (273-304)
[2019-08-20 06:45] LABS: Ferritin 821.6 ng/ml (8-252)
[2019-08-20 07:39] LABS: Band Neutrophils 1 % (0-10); Hypochromasia 2+; Lymphocytes 4 % (20-55); Platelet Estimate Normal; Segmented Neutrophils 90 % (50-85); Total Cells Counted 100
[2019-08-20] MEDS: HEPARIN 5,000 UNIT/1 ML VIAL SUBCUT SCH ×2 (08:59→20:46)
[2019-08-20] MEDS ORDERED: AZITHROMYCIN INJ 250 MG in SODIUM CHLORIDE 0.9% 250 ML IV SCH (09:00)
[2019-08-20] MEDS: DEXTROSE 5% 1,000 ML IV SCH (11:04)
[2019-08-20] MEDS ORDERED: FUROSEMIDE 20 MG TABLET PO PRN (11:30)
[2019-08-20] MEDS ORDERED: DARBEPOETIN ALFA 100 MCG/ML VIAL SUBCUT SCH (11:30)
[2019-08-20] MEDS: hydrALAZINE 25 MG TABLET PO SCH ×2 (14:32→20:46)
[2019-08-20] MEDS: FERROUS SULFATE 325 MG TABLET PO SCH ×2 (14:33→20:46)
[2019-08-20] MEDS: ACETAMINOPHEN 325 MG/10.15 ML UDCUP PEG PRN (17:31)
[2019-08-20] MEDS: PANTOPRAZOLE 40 MG TABLET PO SCH (20:46)
[2019-08-20] MEDS: SODIUM BICARBONATE 650 MG TABLET PO SCH (20:46)
[2019-08-20] MEDS: OMEGA 3 ACID ETHYL ESTERS 1 GM CAPSULE PO SCH (20:46)
[2019-08-20] MEDS: MEMANTINE 10 MG TABLET PO SCH (20:46)
[2019-08-20] MEDS: DOCUSATE SODIUM 100 MG CAPSULE PO SCH (20:46)
[2019-08-21] MEDS: DEXTROSE 5% 1,000 ML IV SCH (01:00)
[2019-08-21] MEDS: CLINDAMYCIN INJ 600 MG in PREMIX 1 EACH IV SCH ×3 (06:11→21:12)
[2019-08-21] MEDS: hydrALAZINE 25 MG TABLET PO SCH (06:12)
[2019-08-21 07:25] LABS: Basophils % 0.2 % (0.0-0.8); Eosinophils # 0.1 10*3/uL (0.0-0.87); Eosinophils % 0.4 % (0.00-10.9); Hematocrit 27.8 VOL% (35.7-47.0); Hemoglobin 8.7 GM/DL (12.0-16.0); Immature Granulocytes % 1.2 %; Immature Granulocytes Absolute 0.22 #; Lymphocytes # 1.1 10*3/uL (1.4-4.0); Lymphocytes % 5.5 % (21.3-54.2); Mean Corpuscular HGB Conc 31.3 GM/DL (32-36); Mean Corpuscular Volume 90.3 FL (87-102); Mean Platelet Volume 11.1 FL (9.6-12.0); Monocytes % 7.4 % (1.7-12.7); NRBC # 0.04 10*3/uL; Neutrophils % 85.3 % (38.7-73.9); Platelet Count 268 T/CUMM (130-400); Red Blood Count 3.08 MC/CUMM (3.8-5.5); Red Cell Distribution Width 18.5 % (9.3-17.3); White Blood Count 19.1 T/CUMM (4-12)
[2019-08-21] MEDS ORDERED: amLODIPine 10 MG TABLET PO SCH (08:00)
[2019-08-21] MEDS ORDERED: MAGNESIUM HYDROXIDE SUSP 30 ML UDCUP PO PRN (08:00)
[2019-08-21 08:02] LABS: Calcium 8.8 MG/DL (8.5-10.1); Osmolality,Calculated 333.6 MOS/KG (273-304)
[2019-08-21] MEDS ORDERED: FUROSEMIDE 20 MG/2 ML VIAL IV ONE (09:09)
[2019-08-21] MEDS: HEPARIN 5,000 UNIT/1 ML VIAL SUBCUT SCH ×2 (09:41→21:00)
[2019-08-21] MEDS: LEVOFLOXACIN INJ 500 MG in PREMIX 1 EACH IV SCH (09:41)
[2019-08-21] MEDS: DOCUSATE SODIUM 100 MG CAPSULE PO SCH ×2 (09:42→20:59)
[2019-08-21] MEDS: CINACALCET 30 MG TABLET PO SCH (09:42)
[2019-08-21] MEDS: DONEPEZIL 10 MG TABLET PO SCH (09:42)
[2019-08-21] MEDS: OMEGA 3 ACID ETHYL ESTERS 1 GM CAPSULE PO SCH ×2 (09:42→21:00)
[2019-08-21] MEDS: MULTIVITAMIN (CENTRUM) TABLET PO SCH (09:42)
[2019-08-21] MEDS: MEMANTINE 10 MG TABLET PO SCH ×2 (09:42→20:59)
[2019-08-21] MEDS: PANTOPRAZOLE 40 MG TABLET PO SCH ×2 (09:42→20:59)
[2019-08-21] MEDS: ATORVASTATIN 20 MG TABLET PO SCH (09:43)
[2019-08-21] MEDS: FERROUS SULFATE 325 MG TABLET PO SCH ×3 (09:43→20:59)
[2019-08-21] MEDS: SODIUM BICARBONATE 650 MG TABLET PO SCH (10:58)
[2019-08-21] MEDS: ACETAMINOPHEN 325 MG/10.15 ML UDCUP PEG PRN (21:00)
[2019-08-22] MEDS: ACETAMINOPHEN 325 MG/10.15 ML UDCUP PEG PRN ×2 (05:36→22:15)
[2019-08-22] MEDS: CLINDAMYCIN INJ 600 MG in PREMIX 1 EACH IV SCH ×3 (05:56→21:27)
[2019-08-22 07:10] LABS: Basophils % 0.2 % (0.0-0.8); Eosinophils # 0.3 10*3/uL (0.0-0.87); Eosinophils % 2.3 % (0.00-10.9); Hematocrit 25.1 VOL% (35.7-47.0); Hemoglobin 7.8 GM/DL (12.0-16.0); Immature Granulocytes % 0.9 %; Immature Granulocytes Absolute 0.14 #; Lymphocytes # 0.9 10*3/uL (1.4-4.0); Lymphocytes % 5.7 % (21.3-54.2); Mean Corpuscular HGB Conc 31.1 GM/DL (32-36); Mean Corpuscular Volume 89.6 FL (87-102); Mean Platelet Volume 11.9 FL (9.6-12.0); Monocytes % 6.7 % (1.7-12.7); NRBC # 0.02 10*3/uL; Neutrophils % 84.2 % (38.7-73.9); Platelet Count 231 T/CUMM (130-400); Red Cell Distribution Width 18.6 % (9.3-17.3); White Blood Count 14.8 T/CUMM (4-12)
[2019-08-22 07:40] LABS: Calcium 8.1 MG/DL (8.5-10.1); Osmolality,Calculated 333.4 MOS/KG (273-304)
[2019-08-22 07:44] LABS: Ferritin 932.1 ng/ml (8-252)
[2019-08-22] MEDS: HEPARIN 5,000 UNIT/1 ML VIAL SUBCUT SCH ×2 (08:51→21:27)
[2019-08-22] MEDS: FERROUS SULFATE 325 MG TABLET PO SCH ×3 (08:51→21:27)
[2019-08-22] MEDS: MULTIVITAMIN (CENTRUM) TABLET PO SCH (08:51)
[2019-08-22] MEDS: OMEGA 3 ACID ETHYL ESTERS 1 GM CAPSULE PO SCH ×2 (08:51→21:27)
[2019-08-22] MEDS: DOCUSATE SODIUM 100 MG CAPSULE PO SCH ×2 (08:51→21:27)
[2019-08-22] MEDS: CINACALCET 30 MG TABLET PO SCH (08:52)
[2019-08-22] MEDS: DONEPEZIL 10 MG TABLET PO SCH (08:53)
[2019-08-22] MEDS: MEMANTINE 10 MG TABLET PO SCH ×2 (08:53→21:27)
[2019-08-22] MEDS: PANTOPRAZOLE 40 MG TABLET PO SCH ×2 (08:53→21:27)
[2019-08-22] MEDS: ATORVASTATIN 20 MG TABLET PO SCH (08:53)
[2019-08-23 05:21] LABS: Basophils % 0.3 % (0.0-0.8); Eosinophils # 0.4 10*3/uL (0.0-0.87); Eosinophils % 3.2 % (0.00-10.9); Hemoglobin 7.8 GM/DL (12.0-16.0); Immature Granulocytes Absolute 0.12 #; Lymphocytes # 1.1 10*3/uL (1.4-4.0); Mean Corpuscular HGB Conc 31.2 GM/DL (32-36); Mean Corpuscular Volume 89.3 FL (87-102); Mean Platelet Volume 11.9 FL (9.6-12.0); Monocytes % 8.3 % (1.7-12.7); Neutrophils % 78.2 % (38.7-73.9); Platelet Count 218 T/CUMM (130-400); Red Cell Distribution Width 18.5 % (9.3-17.3)
[2019-08-23] MEDS: CLINDAMYCIN INJ 600 MG in PREMIX 1 EACH IV SCH ×3 (06:15→21:00)
[2019-08-23] MEDS: ACETAMINOPHEN 325 MG/10.15 ML UDCUP PEG PRN ×2 (06:20→21:00)
[2019-08-23] MEDS: DOCUSATE SODIUM 100 MG CAPSULE PO SCH ×2 (07:58→21:00)
[2019-08-23] MEDS: OMEGA 3 ACID ETHYL ESTERS 1 GM CAPSULE PO SCH ×2 (07:58→21:00)
[2019-08-23] MEDS: LEVOFLOXACIN INJ 500 MG in PREMIX 1 EACH IV SCH (08:07)
[2019-08-23] MEDS: HEPARIN 5,000 UNIT/1 ML VIAL SUBCUT SCH ×2 (08:07→21:00)
[2019-08-23] MEDS: PANTOPRAZOLE 40 MG TABLET PO SCH ×2 (08:08→21:00)
[2019-08-23] MEDS: MEMANTINE 10 MG TABLET PO SCH ×2 (08:08→21:00)
[2019-08-23] MEDS: FERROUS SULFATE 325 MG TABLET PO SCH ×3 (08:08→21:00)
[2019-08-23] MEDS: MULTIVITAMIN (CENTRUM) TABLET PO SCH (08:08)
[2019-08-23] MEDS: DONEPEZIL 10 MG TABLET PO SCH (08:08)
[2019-08-23] MEDS: CINACALCET 30 MG TABLET PO SCH (08:08)
[2019-08-23] MEDS: ATORVASTATIN 20 MG TABLET PO SCH (08:08)
[2019-08-24] MEDS: ACETAMINOPHEN 325 MG/10.15 ML UDCUP PEG PRN ×2 (01:30→20:32)
[2019-08-24] MEDS: CLINDAMYCIN INJ 600 MG in PREMIX 1 EACH IV SCH ×3 (04:45→20:33)
[2019-08-24 05:38] LABS: Basophils % 0.3 % (0.0-0.8); Eosinophils # 0.3 10*3/uL (0.0-0.87); Eosinophils % 3.6 % (0.00-10.9); Hematocrit 24.8 VOL% (35.7-47.0); Hemoglobin 7.5 GM/DL (12.0-16.0); Immature Granulocytes % 1.1 %; Lymphocytes # 0.8 10*3/uL (1.4-4.0); Lymphocytes % 8.6 % (21.3-54.2); Mean Corpuscular HGB Conc 30.2 GM/DL (32-36); Mean Corpuscular Volume 91.5 FL (87-102); Mean Platelet Volume 11.3 FL (9.6-12.0); Monocytes % 7.9 % (1.7-12.7); Neutrophils % 78.5 % (38.7-73.9); Platelet Count 193 T/CUMM (130-400); Red Blood Count 2.71 MC/CUMM (3.8-5.5); Red Cell Distribution Width 18.6 % (9.3-17.3); White Blood Count 9.1 T/CUMM (4-12)
[2019-08-24] MEDS: MEMANTINE 10 MG TABLET PO SCH ×2 (08:01→20:32)
[2019-08-24] MEDS: OMEGA 3 ACID ETHYL ESTERS 1 GM CAPSULE PO SCH ×2 (08:01→20:32)
[2019-08-24] MEDS: FERROUS SULFATE 325 MG TABLET PO SCH ×3 (08:01→20:32)
[2019-08-24] MEDS: CINACALCET 30 MG TABLET PO SCH (08:01)
[2019-08-24] MEDS: DOCUSATE SODIUM 100 MG CAPSULE PO SCH ×2 (08:01→20:30)
[2019-08-24] MEDS: DONEPEZIL 10 MG TABLET PO SCH (08:01)
[2019-08-24] MEDS: ATORVASTATIN 20 MG TABLET PO SCH (08:01)
[2019-08-24] MEDS: PANTOPRAZOLE 40 MG TABLET PO SCH ×2 (08:01→20:32)
[2019-08-24] MEDS: MULTIVITAMIN (CENTRUM) TABLET PO SCH (08:01)
[2019-08-24] MEDS: HEPARIN 5,000 UNIT/1 ML VIAL SUBCUT SCH ×2 (08:01→20:32)
[2019-08-25 04:02] LABS: Basophils % 0.3 % (0.0-0.8); Eosinophils # 0.3 10*3/uL (0.0-0.87); Eosinophils % 3.3 % (0.00-10.9); Hematocrit 24.4 VOL% (35.7-47.0); Hemoglobin 7.4 GM/DL (12.0-16.0); Immature Granulocytes % 1.2 %; Immature Granulocytes Absolute 0.11 #; Lymphocytes # 0.8 10*3/uL (1.4-4.0); Lymphocytes % 8.7 % (21.3-54.2); Mean Corpuscular HGB Conc 30.3 GM/DL (32-36); Mean Corpuscular Volume 91.7 FL (87-102); Mean Platelet Volume 12.1 FL (9.6-12.0); Monocytes % 9.7 % (1.7-12.7); NRBC # 0.02 10*3/uL; Neutrophils % 76.8 % (38.7-73.9); Platelet Count 196 T/CUMM (130-400); Red Blood Count 2.66 MC/CUMM (3.8-5.5); Red Cell Distribution Width 18.6 % (9.3-17.3)
[2019-08-25 04:32] LABS: Calcium 8.7 MG/DL (8.5-10.1); Osmolality,Calculated 320.1 MOS/KG (273-304)
[2019-08-25] MEDS: CLINDAMYCIN INJ 600 MG in PREMIX 1 EACH IV SCH ×3 (06:25→21:00)
[2019-08-25] MEDS: CINACALCET 30 MG TABLET PO SCH (08:13)
[2019-08-25] MEDS: FERROUS SULFATE 325 MG TABLET PO SCH ×3 (08:13→21:00)
[2019-08-25] MEDS: DONEPEZIL 10 MG TABLET PO SCH (08:13)
[2019-08-25] MEDS: DOCUSATE SODIUM 100 MG CAPSULE PO SCH ×2 (08:13→21:00)
[2019-08-25] MEDS: HEPARIN 5,000 UNIT/1 ML VIAL SUBCUT SCH ×2 (08:13→21:29)
[2019-08-25] MEDS: LEVOFLOXACIN INJ 500 MG in PREMIX 1 EACH IV SCH (08:13)
[2019-08-25] MEDS: MULTIVITAMIN (CENTRUM) TABLET PO SCH (08:13)
[2019-08-25] MEDS: ATORVASTATIN 20 MG TABLET PO SCH (08:13)
[2019-08-25] MEDS: PANTOPRAZOLE 40 MG TABLET PO SCH ×2 (08:13→21:00)
[2019-08-25] MEDS: OMEGA 3 ACID ETHYL ESTERS 1 GM CAPSULE PO SCH ×2 (08:13→21:30)
[2019-08-25] MEDS: MEMANTINE 10 MG TABLET PO SCH ×2 (08:13→21:00)
[2019-08-25 14:42] LABS: ABG Base Excess -2.4 MMOL/L (-2.5-2.5); ABG HCO3 22.4 MMOL/L (20-26); ABG Oxygen Saturation 99.4 % (95-100); ABG PCO2 32.9 MM HG (35-48); ABG PH 7.424 (7.35-7.45); ABG TCO2 20.4 MMOL/L (23-27); Pt O2 Delivery Device Other
[2019-08-25] MEDS: DEXAMETHASONE 4 MG/1 ML VIAL IV SCH (15:40)
[2019-08-25 18:40] LABS: Amorphous Crystals,Urine Occasional /HPF (Few); Apearance,Urine CLOUDY (Clear); Bacteria,Urine Occasional /HPF (Few); Bilirubin,Urine Negative (Negative); Blood, Urine Negative (Negative); Glucose,Urine (UA) Negative (Negative); Ketones,Urine Negative (Negative); Nitrite,Urine Negative (Negative); Protein,Urine 100 MG/DL; Urine Color Yellow (Yellow); Urine Specific Gravity 1.014 (1.001-1.035); Urine Urobilinogen < 2.0 EU/DL (0.2-1.0); WBC,Urine 3 /HPF (0-6)
[2019-08-26 03:28] LABS: ABG Base Excess -2.6 MMOL/L (-2.5-2.5); ABG HCO3 22.2 MMOL/L (20-26); ABG Oxygen Saturation 94.2 % (95-100); ABG PCO2 30.1 MM HG (35-48); ABG PH 7.446 (7.35-7.45); ABG PO2 64.6 MM HG (80-95); ABG TCO2 19.1 MMOL/L (23-27); Allen Test Positive; Pt O2 Delivery Device Other
[2019-08-26 05:09] LABS: Basophils % 0.1 % (0.0-0.8); Hematocrit 23.3 VOL% (35.7-47.0); Hemoglobin 7.2 GM/DL (12.0-16.0); Immature Granulocytes % 1.4 %; Lymphocytes # 0.5 10*3/uL (1.4-4.0); Mean Corpuscular HGB Conc 30.9 GM/DL (32-36); Mean Corpuscular Volume 89.6 FL (87-102); Mean Platelet Volume 11.8 FL (9.6-12.0); Monocytes % 4.7 % (1.7-12.7); NRBC # 0.02 10*3/uL; Neutrophils % 86.8 % (38.7-73.9); Platelet Count 188 T/CUMM (130-400)
[2019-08-26] MEDS: CLINDAMYCIN INJ 600 MG in PREMIX 1 EACH IV SCH ×3 (05:23→21:30)
[2019-08-26 05:26] LABS: Albumin 1.7 G/DL (3.4-5.0); Bilirubin,Total 0.4 MG/DL (0.2-1.0); Calcium 9.2 MG/DL (8.5-10.1); Osmolality,Calculated 325.8 MOS/KG (273-304); Total Protein 7.1 G/DL (6.4-8.3)
[2019-08-26 05:27] LABS: Ferritin 1093.3 ng/ml (8-252); Osmolality,Calculated 325.8 MOS/KG (273-304)
[2019-08-26] MEDS: DONEPEZIL 10 MG TABLET PO SCH (09:03)
[2019-08-26] MEDS: MULTIVITAMIN (CENTRUM) TABLET PO SCH (09:03)
[2019-08-26] MEDS: DOCUSATE SODIUM 100 MG CAPSULE PO SCH ×2 (09:03→21:30)
[2019-08-26] MEDS: DEXAMETHASONE 4 MG/1 ML VIAL IV SCH (09:04)
[2019-08-26] MEDS: CINACALCET 30 MG TABLET PO SCH (09:04)
[2019-08-26] MEDS: FERROUS SULFATE 325 MG TABLET PO SCH ×3 (09:04→21:30)
[2019-08-26] MEDS: PANTOPRAZOLE 40 MG VIAL IV SCH (09:04)
[2019-08-26] MEDS: ATORVASTATIN 20 MG TABLET PO SCH (09:04)
[2019-08-26] MEDS: MEMANTINE 10 MG TABLET PO SCH ×2 (09:04→21:30)
[2019-08-26] MEDS: HEPARIN 5,000 UNIT/1 ML VIAL SUBCUT SCH ×2 (09:04→21:30)
[2019-08-26] MEDS: OMEGA 3 ACID ETHYL ESTERS 1 GM CAPSULE PO SCH ×2 (09:04→21:30)
[2019-08-26] MEDS: ACETAMINOPHEN 325 MG/10.15 ML UDCUP PEG PRN (21:30)
[2019-08-27 04:12] LABS: Calcium 8.6 MG/DL (8.5-10.1); Ferritin 965.2 ng/ml (8-252); Osmolality,Calculated 324.8 MOS/KG (273-304)
[2019-08-27] MEDS: CLINDAMYCIN INJ 600 MG in PREMIX 1 EACH IV SCH ×3 (06:02→20:00)
[2019-08-27] MEDS: CINACALCET 30 MG TABLET PO SCH (08:43)
[2019-08-27] MEDS: FERROUS SULFATE 325 MG TABLET PO SCH ×2 (08:43→14:25)
[2019-08-27] MEDS: OMEGA 3 ACID ETHYL ESTERS 1 GM CAPSULE PO SCH ×2 (08:43→20:00)
[2019-08-27] MEDS: ATORVASTATIN 20 MG TABLET PO SCH (08:43)
[2019-08-27] MEDS: MULTIVITAMIN (CENTRUM) TABLET PO SCH (08:43)
[2019-08-27] MEDS: MEMANTINE 10 MG TABLET PO SCH ×2 (08:44→20:00)
[2019-08-27] MEDS: DONEPEZIL 10 MG TABLET PO SCH (08:44)
[2019-08-27] MEDS: HEPARIN 5,000 UNIT/1 ML VIAL SUBCUT SCH (08:44)
[2019-08-27] MEDS: cloNIDine 0.3 MG/24 HR PATCH TRANSDERM SCH (08:44)
[2019-08-27] MEDS: DEXAMETHASONE 4 MG/1 ML VIAL IV SCH (08:44)
[2019-08-27] MEDS: DOCUSATE SODIUM 100 MG CAPSULE PO SCH ×2 (08:44→20:17)
[2019-08-27] MEDS: LEVOFLOXACIN INJ 500 MG in PREMIX 1 EACH IV SCH (08:44)
[2019-08-27] MEDS: PANTOPRAZOLE 40 MG VIAL IV SCH (08:45)
[2019-08-27] MEDS: FERROUS SULFATE 300 MG/5 ML UDCUP PO SCH ×2 (14:32→20:00)
[2019-08-27] MEDS: ACETAMINOPHEN 325 MG/10.15 ML UDCUP PEG PRN (20:00)
[2019-08-28] MEDS: CLINDAMYCIN INJ 600 MG in PREMIX 1 EACH IV SCH ×3 (05:50→21:09)
[2019-08-28] MEDS: ACETAMINOPHEN 325 MG/10.15 ML UDCUP PEG PRN (05:50)
[2019-08-28 05:54] LABS: Basophils % 0.2 % (0.0-0.8); Eosinophils % 0.3 % (0.00-10.9); Hematocrit 22.3 VOL% (35.7-47.0); Hemoglobin 6.7 GM/DL (12.0-16.0); Immature Granulocytes % 1.3 %; Immature Granulocytes Absolute 0.12 #; Lymphocytes # 0.9 10*3/uL (1.4-4.0); Lymphocytes % 10.1 % (21.3-54.2); Mean Corpuscular Volume 92.9 FL (87-102); Mean Platelet Volume 11.5 FL (9.6-12.0); Monocytes % 10.6 % (1.7-12.7); NRBC # 0.04 10*3/uL; Neutrophils % 77.5 % (38.7-73.9); Platelet Count 220 T/CUMM (130-400); Red Cell Distribution Width 19.1 % (9.3-17.3); White Blood Count 9.1 T/CUMM (4-12)
[2019-08-28 06:06] LABS: Calcium 8.8 MG/DL (8.5-10.1); Ferritin 908.4 ng/ml (8-252); Osmolality,Calculated 322.8 MOS/KG (273-304)
[2019-08-28 06:22] LABS: Folate 17.4 NG/ML (5.4-24.0); Vitamin B12 1034 PG/ML (211-911)
[2019-08-28 06:57] LABS: Sedimentation Rate-Westergren 140 MM/HR (0-30)
[2019-08-28] MEDS ORDERED: SODIUM CHLORIDE 0.9% 1,000 ML IV PRN (07:58)
[2019-08-28] MEDS: FERROUS SULFATE 300 MG/5 ML UDCUP PO SCH ×3 (09:24→20:46)
[2019-08-28] MEDS: CINACALCET 30 MG TABLET PO SCH (09:24)
[2019-08-28] MEDS: MEMANTINE 10 MG TABLET PO SCH ×2 (09:25→20:47)
[2019-08-28] MEDS: DONEPEZIL 10 MG TABLET PO SCH (09:25)
[2019-08-28] MEDS: ATORVASTATIN 20 MG TABLET PO SCH (09:25)
[2019-08-28] MEDS: OMEGA 3 ACID ETHYL ESTERS 1 GM CAPSULE PO SCH ×2 (09:25→20:46)
[2019-08-28] MEDS: DEXAMETHASONE 4 MG/1 ML VIAL IV SCH (09:25)
[2019-08-28] MEDS: MULTIVITAMIN (CENTRUM) TABLET PO SCH (09:25)
[2019-08-28] MEDS: DOCUSATE SODIUM 100 MG CAPSULE PO SCH ×2 (09:25→20:46)
[2019-08-28] MEDS: PANTOPRAZOLE 40 MG VIAL IV SCH (09:26)
[2019-08-28 16:05] LABS: Hematocrit 23.9 VOL% (35.7-47.0); Hemoglobin 7.2 GM/DL (12.0-16.0)
[2019-08-29 05:38] LABS: Basophils % 0.2 % (0.0-0.8); Eosinophils # 0.1 10*3/uL (0.0-0.87); Hemoglobin 6.8 GM/DL (12.0-16.0); Immature Granulocytes % 1.3 %; Immature Granulocytes Absolute 0.15 #; Lymphocytes # 1.3 10*3/uL (1.4-4.0); Lymphocytes % 10.9 % (21.3-54.2); Mean Corpuscular HGB Conc 30.9 GM/DL (32-36); Mean Corpuscular Volume 91.3 FL (87-102); Mean Platelet Volume 11.4 FL (9.6-12.0); Monocytes % 10.4 % (1.7-12.7); NRBC # 0.09 10*3/uL; Neutrophils % 76.2 % (38.7-73.9); Platelet Count 240 T/CUMM (130-400); Red Blood Count 2.41 MC/CUMM (3.8-5.5); Red Cell Distribution Width 19.7 % (9.3-17.3); White Blood Count 11.5 T/CUMM (4-12)
[2019-08-29] MEDS: CLINDAMYCIN INJ 600 MG in PREMIX 1 EACH IV SCH ×3 (05:38→20:22)
[2019-08-29 06:04] LABS: Calcium 8.8 MG/DL (8.5-10.1); Osmolality,Calculated 322.6 MOS/KG (273-304)
[2019-08-29] MEDS ORDERED: SODIUM CHLORIDE 0.9% 1,000 ML IV PRN (07:49)
[2019-08-29 09:36] LABS: Hemoglobin A1 (Alkaline) 97.8 % (96.5-98.5); Hemoglobin A2 (Alkaline) 2.2 % (1.5-3.5)
[2019-08-29] MEDS: DOCUSATE SODIUM 100 MG CAPSULE PO SCH ×2 (09:51→20:21)
[2019-08-29] MEDS: DEXAMETHASONE 4 MG/1 ML VIAL IV SCH (09:51)
[2019-08-29] MEDS: MULTIVITAMIN (CENTRUM) TABLET PO SCH (09:51)
[2019-08-29] MEDS: CINACALCET 30 MG TABLET PO SCH (09:51)
[2019-08-29] MEDS: ATORVASTATIN 20 MG TABLET PO SCH (09:51)
[2019-08-29] MEDS: MEMANTINE 10 MG TABLET PO SCH ×2 (09:51→20:22)
[2019-08-29] MEDS: OMEGA 3 ACID ETHYL ESTERS 1 GM CAPSULE PO SCH ×2 (09:51→20:21)
[2019-08-29] MEDS: DONEPEZIL 10 MG TABLET PO SCH (09:51)
[2019-08-29] MEDS: PANTOPRAZOLE 40 MG VIAL IV SCH (09:52)
[2019-08-29] MEDS: LEVOFLOXACIN INJ 500 MG in PREMIX 1 EACH IV SCH (09:52)
[2019-08-29] MEDS: FERROUS SULFATE 300 MG/5 ML UDCUP PO SCH ×3 (09:53→20:21)
[2019-08-29] MEDS: ACETAMINOPHEN 325 MG/10.15 ML UDCUP PEG PRN (10:17)
[2019-08-29] MEDS: atenoloL 25 MG TABLET PO SCH (13:48)
[2019-08-29] MEDS: DEXTROSE 5% 1,000 ML IV SCH (13:49)
[2019-08-29 15:55] LABS: Hemoglobin 6.8 GM/DL (12.0-16.0)
[2019-08-30] MEDS: DEXTROSE 5% 1,000 ML IV SCH (04:54)
[2019-08-30] MEDS: CLINDAMYCIN INJ 600 MG in PREMIX 1 EACH IV SCH ×2 (04:56→12:00)
[2019-08-30 05:41] LABS: Basophils % 0.1 % (0.0-0.8); Eosinophils # 0.2 10*3/uL (0.0-0.87); Eosinophils % 1.6 % (0.00-10.9); Hematocrit 23.3 VOL% (35.7-47.0); Hemoglobin 6.9 GM/DL (12.0-16.0); Immature Granulocytes % 1.4 %; Lymphocytes # 1.6 10*3/uL (1.4-4.0); Lymphocytes % 10.6 % (21.3-54.2); Mean Corpuscular HGB Conc 29.6 GM/DL (32-36); Mean Corpuscular Volume 94.7 FL (87-102); Mean Platelet Volume 11.2 FL (9.6-12.0); Monocytes % 7.9 % (1.7-12.7); NRBC # 0.04 10*3/uL; Neutrophils % 78.4 % (38.7-73.9); Platelet Count 249 T/CUMM (130-400); Red Blood Count 2.46 MC/CUMM (3.8-5.5); White Blood Count 14.8 T/CUMM (4-12)
[2019-08-30 06:06] LABS: Calcium 8.9 MG/DL (8.5-10.1); Osmolality,Calculated 308.3 MOS/KG (273-304)
[2019-08-30] MEDS ORDERED: SODIUM CHLORIDE 0.9% 1,000 ML IV PRN (06:58)
[2019-08-30] MEDS: DONEPEZIL 10 MG TABLET PO SCH (08:32)
[2019-08-30] MEDS: MEMANTINE 10 MG TABLET PO SCH ×2 (08:32→21:44)
[2019-08-30] MEDS: FERROUS SULFATE 300 MG/5 ML UDCUP PO SCH ×3 (08:33→21:43)
[2019-08-30] MEDS: atenoloL 25 MG TABLET PO SCH ×2 (08:33→21:44)
[2019-08-30] MEDS: MULTIVITAMIN (CENTRUM) TABLET PO SCH (08:33)
[2019-08-30] MEDS: DOCUSATE SODIUM 100 MG CAPSULE PO SCH ×2 (08:33→21:43)
[2019-08-30] MEDS: PANTOPRAZOLE 40 MG VIAL IV SCH (08:34)
[2019-08-30] MEDS: DEXAMETHASONE 4 MG/1 ML VIAL IV SCH (08:35)
[2019-08-30] MEDS: OMEGA 3 ACID ETHYL ESTERS 1 GM CAPSULE PO SCH ×2 (08:37→21:44)
[2019-08-30] MEDS: CINACALCET 30 MG TABLET PO SCH (08:48)
[2019-08-30] MEDS: ATORVASTATIN 20 MG TABLET PO SCH (08:48)
[2019-08-30 19:52] LABS: Hematocrit 26.1 VOL% (35.7-47.0); Hemoglobin 7.6 GM/DL (12.0-16.0)
[2019-08-31] MEDS: DEXTROSE 5% 1,000 ML IV SCH ×2 (01:43→07:02)
[2019-08-31 05:08] LABS: Basophils % 0.1 % (0.0-0.8); Eosinophils # 0.1 10*3/uL (0.0-0.87); Eosinophils % 1.1 % (0.00-10.9); Hematocrit 20.4 VOL% (35.7-47.0); Immature Granulocytes % 1.2 %; Immature Granulocytes Absolute 0.14 #; Lymphocytes # 1.1 10*3/uL (1.4-4.0); Lymphocytes % 9.6 % (21.3-54.2); Mean Corpuscular HGB Conc 30.9 GM/DL (32-36); Mean Corpuscular Volume 91.9 FL (87-102); Mean Platelet Volume 11.5 FL (9.6-12.0); Monocytes % 8.2 % (1.7-12.7); NRBC # 0.03 10*3/uL; Neutrophils % 79.8 % (38.7-73.9); Platelet Count 259 T/CUMM (130-400); Red Blood Count 2.22 MC/CUMM (3.8-5.5); Red Cell Distribution Width 19.6 % (9.3-17.3); White Blood Count 11.9 T/CUMM (4-12)
[2019-08-31 05:18] LABS: Hemoglobin 6.3 GM/DL (12.0-16.0)
[2019-08-31 05:32] LABS: Calcium 8.5 MG/DL (8.5-10.1); Osmolality,Calculated 300.7 MOS/KG (273-304)
[2019-08-31] MEDS ORDERED: SODIUM CHLORIDE 0.9% 1,000 ML IV PRN ×2 (05:32→07:37)
[2019-08-31] MEDS: CINACALCET 30 MG TABLET PO SCH (09:23)
[2019-08-31] MEDS: ATORVASTATIN 20 MG TABLET PO SCH (09:23)
[2019-08-31] MEDS: FERROUS SULFATE 300 MG/5 ML UDCUP PO SCH ×3 (09:23→21:18)
[2019-08-31] MEDS: atenoloL 25 MG TABLET PO SCH ×2 (09:24→21:20)
[2019-08-31] MEDS: MEMANTINE 10 MG TABLET PO SCH ×2 (09:24→21:19)
[2019-08-31] MEDS: MULTIVITAMIN (CENTRUM) TABLET PO SCH (09:24)
[2019-08-31] MEDS: OMEGA 3 ACID ETHYL ESTERS 1 GM CAPSULE PO SCH ×2 (09:24→21:18)
[2019-08-31] MEDS: DOCUSATE SODIUM 100 MG CAPSULE PO SCH ×2 (09:24→21:18)
[2019-08-31] MEDS: DONEPEZIL 10 MG TABLET PO SCH (09:24)
[2019-08-31] MEDS: PANTOPRAZOLE 40 MG VIAL IV SCH (09:24)
[2019-08-31] MEDS: DEXAMETHASONE 4 MG/1 ML VIAL IV SCH (09:55)
[2019-08-31 22:05] LABS: Hemoglobin 9.7 GM/DL (12.0-16.0)
[2019-09-01] MEDS: DONEPEZIL 10 MG TABLET PO SCH (08:22)
[2019-09-01] MEDS: DOCUSATE SODIUM 100 MG CAPSULE PO SCH ×2 (08:22→20:56)
[2019-09-01] MEDS: MEMANTINE 10 MG TABLET PO SCH ×2 (08:22→20:56)
[2019-09-01] MEDS: OMEGA 3 ACID ETHYL ESTERS 1 GM CAPSULE PO SCH ×2 (08:22→20:56)
[2019-09-01] MEDS: atenoloL 25 MG TABLET PO SCH ×2 (08:22→20:56)
[2019-09-01] MEDS: ATORVASTATIN 20 MG TABLET PO SCH (08:22)
[2019-09-01] MEDS: FERROUS SULFATE 300 MG/5 ML UDCUP PO SCH ×3 (08:23→20:56)
[2019-09-01] MEDS: MULTIVITAMIN (CENTRUM) TABLET PO SCH (08:23)
[2019-09-01] MEDS: CINACALCET 30 MG TABLET PO SCH (08:23)
[2019-09-01] MEDS: OMEPRAZOLE ODT 20 MG TABLET PEG SCH (08:26)
[2019-09-02 06:55] LABS: Calcium 8.8 MG/DL (8.5-10.1); Osmolality,Calculated 301.4 MOS/KG (273-304)
[2019-09-02 08:19] LABS: Basophils % 0.2 % (0.0-0.8); Eosinophils # 0.4 10*3/uL (0.0-0.87); Eosinophils % 4.2 % (0.00-10.9); Hematocrit 34.4 VOL% (35.7-47.0); Hemoglobin 10.8 GM/DL (12.0-16.0); Immature Granulocytes % 1.4 %; Immature Granulocytes Absolute 0.12 #; Lymphocytes # 1.1 10*3/uL (1.4-4.0); Lymphocytes % 12.1 % (21.3-54.2); Mean Corpuscular HGB Conc 31.4 GM/DL (32-36); Mean Corpuscular Volume 93.7 FL (87-102); Mean Platelet Volume 11.5 FL (9.6-12.0); Monocytes % 10.5 % (1.7-12.7); NRBC # 0.02 10*3/uL; Neutrophils % 71.6 % (38.7-73.9); Platelet Count 314 T/CUMM (130-400); Red Blood Count 3.67 MC/CUMM (3.8-5.5); Red Cell Distribution Width 18.4 % (9.3-17.3); White Blood Count 8.9 T/CUMM (4-12)
[2019-09-02] MEDS: MULTIVITAMIN (CENTRUM) TABLET PO SCH (08:39)
[2019-09-02] MEDS: FERROUS SULFATE 300 MG/5 ML UDCUP PO SCH ×3 (08:39→20:11)
[2019-09-02] MEDS: OMEGA 3 ACID ETHYL ESTERS 1 GM CAPSULE PO SCH ×2 (08:40→20:11)
[2019-09-02] MEDS: ATORVASTATIN 20 MG TABLET PO SCH (08:40)
[2019-09-02] MEDS: MEMANTINE 10 MG TABLET PO SCH ×2 (08:40→20:11)
[2019-09-02] MEDS: DONEPEZIL 10 MG TABLET PO SCH (08:40)
[2019-09-02] MEDS: DOCUSATE SODIUM 100 MG CAPSULE PO SCH ×2 (08:40→20:11)
[2019-09-02] MEDS: amLODIPine 5 MG TABLET PO SCH (08:40)
[2019-09-02] MEDS: OMEPRAZOLE ODT 20 MG TABLET PEG SCH (08:40)
[2019-09-02] MEDS: CINACALCET 30 MG TABLET PO SCH (08:40)
[2019-09-03 06:51] LABS: Basophils % 0.3 % (0.0-0.8); Eosinophils # 0.2 10*3/uL (0.0-0.87); Eosinophils % 2.1 % (0.00-10.9); Hematocrit 33.6 VOL% (35.7-47.0); Hemoglobin 10.8 GM/DL (12.0-16.0); Immature Granulocytes % 1.5 %; Immature Granulocytes Absolute 0.15 #; Lymphocytes # 1.5 10*3/uL (1.4-4.0); Lymphocytes % 14.5 % (21.3-54.2); Mean Corpuscular HGB Conc 32.1 GM/DL (32-36); Mean Corpuscular Volume 91.8 FL (87-102); Mean Platelet Volume 11.2 FL (9.6-12.0); Monocytes % 12.7 % (1.7-12.7); Neutrophils % 68.9 % (38.7-73.9); Platelet Count 321 T/CUMM (130-400); Red Blood Count 3.66 MC/CUMM (3.8-5.5)
[2019-09-03 07:09] LABS: Calcium 9.3 MG/DL (8.5-10.1); Osmolality,Calculated 297.7 MOS/KG (273-304)
[2019-09-03] MEDS: amLODIPine 5 MG TABLET PO SCH (08:10)
[2019-09-03] MEDS: ATORVASTATIN 20 MG TABLET PO SCH (08:10)
[2019-09-03] MEDS: OMEGA 3 ACID ETHYL ESTERS 1 GM CAPSULE PO SCH ×2 (08:10→20:29)
[2019-09-03] MEDS: FERROUS SULFATE 300 MG/5 ML UDCUP PO SCH ×3 (08:10→20:29)
[2019-09-03] MEDS: MULTIVITAMIN (CENTRUM) TABLET PO SCH (08:10)
[2019-09-03] MEDS: DOCUSATE SODIUM 100 MG CAPSULE PO SCH ×2 (08:10→20:29)
[2019-09-03] MEDS: MEMANTINE 10 MG TABLET PO SCH ×2 (08:11→20:29)
[2019-09-03] MEDS: DONEPEZIL 10 MG TABLET PO SCH (08:11)
[2019-09-03] MEDS: CINACALCET 30 MG TABLET PO SCH (08:11)
[2019-09-03] MEDS: ACETAMINOPHEN 325 MG/10.15 ML UDCUP PEG PRN (08:12)
[2019-09-03] MEDS: OMEPRAZOLE ODT 20 MG TABLET PEG SCH (08:12)
[2019-09-03 08:25] LABS: Eosinophils 2 % (0-10); Hypochromasia 1+; Lymphocytes 24 % (20-55); Segmented Neutrophils 63 % (50-85); Total Cells Counted 100
[2019-09-03 08:26] LABS: Anisocytosis 1+; Platelet Estimate Normal
[2019-09-03] MEDS ORDERED: amLODIPine 5 MG TABLET PO ONE (09:15)
[2019-09-03] MEDS: cloNIDine 0.3 MG/24 HR PATCH TRANSDERM SCH (09:49)
[2019-09-03] MEDS: SODIUM ZIRCONIUM CYCLOSILICATE 10 GM PACK PO SCH ×3 (09:51→20:29)
[2019-09-03 13:01] LABS: Apearance,Urine CLOUDY (Clear); Bacteria,Urine Occasional /HPF (Few); Bilirubin,Urine Negative (Negative); Blood, Urine Negative (Negative); Glucose,Urine (UA) Negative (Negative); Ketones,Urine Negative (Negative); Nitrite,Urine Negative (Negative); Protein,Urine 100 MG/DL; Urine Color Amber (Yellow); Urine Specific Gravity 1.015 (1.001-1.035); Urine Urobilinogen < 2.0 EU/DL (0.2-1.0); WBC,Urine 5 /HPF (0-6)
[2019-09-04 06:15] LABS: Basophils % 0.4 % (0.0-0.8); Eosinophils # 0.2 10*3/uL (0.0-0.87); Eosinophils % 2.1 % (0.00-10.9); Hematocrit 31.3 VOL% (35.7-47.0); Hemoglobin 9.9 GM/DL (12.0-16.0); Immature Granulocytes % 1.6 %; Immature Granulocytes Absolute 0.16 #; Lymphocytes # 1.5 10*3/uL (1.4-4.0); Lymphocytes % 15.1 % (21.3-54.2); Mean Corpuscular HGB Conc 31.6 GM/DL (32-36); Mean Corpuscular Volume 91.5 FL (87-102); Mean Platelet Volume 10.5 FL (9.6-12.0); Monocytes % 15.6 % (1.7-12.7); Neutrophils % 65.2 % (38.7-73.9); Platelet Count 295 T/CUMM (130-400); Red Blood Count 3.42 MC/CUMM (3.8-5.5); Red Cell Distribution Width 17.9 % (9.3-17.3)
[2019-09-04 06:35] LABS: Calcium 9.2 MG/DL (8.5-10.1); Osmolality,Calculated 298.5 MOS/KG (273-304)
[2019-09-04 07:28] LABS: Band Neutrophils 2 % (0-10); Eosinophils 3 % (0-10); Hypochromasia 1+; Lymphocytes 12 % (20-55); Platelet Estimate Normal; Segmented Neutrophils 69 % (50-85); Total Cells Counted 100
[2019-09-04] MEDS ORDERED: MEROPENEM 1,000 MG in SODIUM CHLORIDE 0.9% 100 ML IV SCH (08:00)
[2019-09-04] MEDS ORDERED: VANCOMYCIN INJ 1,000 MG in SODIUM CHLORIDE 0.9% 250 ML IV SCH (08:00)
[2019-09-04] MEDS: MEROPENEM 500 MG in SODIUM CHLORIDE 0.9% 100 ML IV SCH ×2 (08:33→16:10)
[2019-09-04] MEDS: METOPROLOL TARTRATE 25 MG TABLET PO SCH ×2 (08:34→21:39)
[2019-09-04] MEDS: FERROUS SULFATE 300 MG/5 ML UDCUP PO SCH ×3 (08:34→21:39)
[2019-09-04] MEDS: DONEPEZIL 10 MG TABLET PO SCH (08:35)
[2019-09-04] MEDS: CINACALCET 30 MG TABLET PO SCH (08:35)
[2019-09-04] MEDS: amLODIPine 10 MG TABLET PO SCH (08:35)
[2019-09-04] MEDS: MULTIVITAMIN (CENTRUM) TABLET PO SCH (08:35)
[2019-09-04] MEDS: DOCUSATE SODIUM 100 MG CAPSULE PO SCH ×2 (08:35→21:40)
[2019-09-04] MEDS: MEMANTINE 10 MG TABLET PO SCH ×2 (08:35→21:39)
[2019-09-04] MEDS: ATORVASTATIN 20 MG TABLET PO SCH (08:35)
[2019-09-04] MEDS: OMEGA 3 ACID ETHYL ESTERS 1 GM CAPSULE PO SCH ×2 (08:35→21:39)
[2019-09-04] MEDS: VANCOMYCIN INJ 1,000 MG in SODIUM CHLORIDE 0.9% 250 ML IV SCH (09:58)
[2019-09-04] MEDS: OMEPRAZOLE ODT 20 MG TABLET PEG SCH (09:59)
[2019-09-05] MEDS: MEROPENEM 500 MG in SODIUM CHLORIDE 0.9% 100 ML IV SCH ×3 (00:21→16:17)
[2019-09-05 07:57] LABS: Basophils % 0.4 % (0.0-0.8); Eosinophils # 0.3 10*3/uL (0.0-0.87); Eosinophils % 3.1 % (0.00-10.9); Hematocrit 33.8 VOL% (35.7-47.0); Hemoglobin 10.7 GM/DL (12.0-16.0); Immature Granulocytes % 1.3 %; Immature Granulocytes Absolute 0.13 #; Lymphocytes # 1.6 10*3/uL (1.4-4.0); Lymphocytes % 16.2 % (21.3-54.2); Mean Corpuscular HGB Conc 31.7 GM/DL (32-36); Mean Corpuscular Volume 91.4 FL (87-102); Monocytes % 17.7 % (1.7-12.7); Neutrophils % 61.3 % (38.7-73.9); Platelet Count 296 T/CUMM (130-400); Red Cell Distribution Width 17.8 % (9.3-17.3); White Blood Count 9.9 T/CUMM (4-12)
[2019-09-05 08:26] LABS: Anisocytosis Slight; Band Neutrophils 1 % (0-10); Eosinophils 3 % (0-10); Lymphocytes 19 % (20-55); Macrocytosis Slight; Platelet Estimate Normal; Polychromasia Few; Segmented Neutrophils 64 % (50-85); Total Cells Counted 100
[2019-09-05 08:27] LABS: Calcium 9.1 MG/DL (8.5-10.1); Osmolality,Calculated 299.5 MOS/KG (273-304)
[2019-09-05] MEDS: amLODIPine 10 MG TABLET PO SCH (09:04)
[2019-09-05] MEDS: FERROUS SULFATE 300 MG/5 ML UDCUP PO SCH ×3 (09:04→21:18)
[2019-09-05] MEDS: CINACALCET 30 MG TABLET PO SCH (09:04)
[2019-09-05] MEDS: METOPROLOL TARTRATE 25 MG TABLET PO SCH ×2 (09:04→21:22)
[2019-09-05] MEDS: OMEPRAZOLE ODT 20 MG TABLET PEG SCH (09:04)
[2019-09-05] MEDS: MEMANTINE 10 MG TABLET PO SCH ×2 (09:04→21:18)
[2019-09-05] MEDS: MULTIVITAMIN (CENTRUM) TABLET PO SCH (09:05)
[2019-09-05] MEDS: ATORVASTATIN 20 MG TABLET PO SCH (09:05)
[2019-09-05] MEDS: OMEGA 3 ACID ETHYL ESTERS 1 GM CAPSULE PO SCH ×2 (09:06→21:18)
[2019-09-05] MEDS: DOCUSATE SODIUM 100 MG CAPSULE PO SCH ×2 (09:06→21:18)
[2019-09-05] MEDS: DONEPEZIL 10 MG TABLET PO SCH (09:06)
[2019-09-05] MEDS: VANCOMYCIN INJ 1,000 MG in SODIUM CHLORIDE 0.9% 250 ML IV SCH (09:07)
[2019-09-05] MEDS: ACETAMINOPHEN 325 MG/10.15 ML UDCUP PEG PRN (16:55)
[2019-09-06] MEDS: MEROPENEM 500 MG in SODIUM CHLORIDE 0.9% 100 ML IV SCH ×3 (00:46→17:01)
[2019-09-06] MEDS: ACETAMINOPHEN 325 MG/10.15 ML UDCUP PEG PRN ×2 (05:02→11:18)
[2019-09-06 06:36] LABS: Basophils % 0.3 % (0.0-0.8); Eosinophils # 0.3 10*3/uL (0.0-0.87); Eosinophils % 2.7 % (0.00-10.9); Hematocrit 29.2 VOL% (35.7-47.0); Hemoglobin 9.2 GM/DL (12.0-16.0); Immature Granulocytes % 1.2 %; Immature Granulocytes Absolute 0.11 #; Lymphocytes # 1.3 10*3/uL (1.4-4.0); Lymphocytes % 13.8 % (21.3-54.2); Mean Corpuscular HGB Conc 31.5 GM/DL (32-36); Mean Corpuscular Volume 90.4 FL (87-102); Mean Platelet Volume 10.9 FL (9.6-12.0); Monocytes % 14.3 % (1.7-12.7); Neutrophils % 67.7 % (38.7-73.9); Platelet Count 282 T/CUMM (130-400); Red Blood Count 3.23 MC/CUMM (3.8-5.5); Red Cell Distribution Width 17.4 % (9.3-17.3); White Blood Count 9.4 T/CUMM (4-12)
[2019-09-06 06:44] LABS: Calcium 8.9 MG/DL (8.5-10.1)
[2019-09-06] MEDS: VANCOMYCIN INJ 1,000 MG in SODIUM CHLORIDE 0.9% 250 ML IV SCH (11:14)
[2019-09-06] MEDS: FERROUS SULFATE 300 MG/5 ML UDCUP PO SCH ×3 (11:16→21:02)
[2019-09-06] MEDS: DOCUSATE SODIUM 100 MG CAPSULE PO SCH ×2 (11:16→21:02)
[2019-09-06] MEDS: DONEPEZIL 10 MG TABLET PO SCH (11:16)
[2019-09-06] MEDS: OMEPRAZOLE ODT 20 MG TABLET PEG SCH (11:16)
[2019-09-06] MEDS: MULTIVITAMIN (CENTRUM) TABLET PO SCH (11:16)
[2019-09-06] MEDS: CINACALCET 30 MG TABLET PO SCH (11:17)
[2019-09-06] MEDS: ATORVASTATIN 20 MG TABLET PO SCH (11:17)
[2019-09-06] MEDS: amLODIPine 10 MG TABLET PO SCH (11:17)
[2019-09-06] MEDS: MEMANTINE 10 MG TABLET PO SCH ×2 (11:17→21:02)
[2019-09-06] MEDS: OMEGA 3 ACID ETHYL ESTERS 1 GM CAPSULE PO SCH ×2 (11:17→21:02)
[2019-09-06] MEDS: METOPROLOL TARTRATE 25 MG TABLET PO SCH ×2 (11:17→21:02)
[2019-09-07] MEDS: MEROPENEM 500 MG in SODIUM CHLORIDE 0.9% 100 ML IV SCH ×2 (00:19→07:48)
[2019-09-07 05:58] LABS: Basophils % 0.3 % (0.0-0.8); Eosinophils # 0.2 10*3/uL (0.0-0.87); Eosinophils % 1.8 % (0.00-10.9); Hematocrit 32.5 VOL% (35.7-47.0); Immature Granulocytes % 1.4 %; Immature Granulocytes Absolute 0.13 #; Lymphocytes # 1.8 10*3/uL (1.4-4.0); Lymphocytes % 19.4 % (21.3-54.2); Mean Corpuscular HGB Conc 30.8 GM/DL (32-36); Mean Corpuscular Volume 92.9 FL (87-102); Monocytes % 15.2 % (1.7-12.7); Neutrophils % 61.9 % (38.7-73.9); Platelet Count 312 T/CUMM (130-400); Red Cell Distribution Width 17.2 % (9.3-17.3); White Blood Count 9.1 T/CUMM (4-12)
[2019-09-07 06:20] LABS: Calcium 9.1 MG/DL (8.5-10.1); Osmolality,Calculated 289.2 MOS/KG (273-304)
[2019-09-07] MEDS: ACETAMINOPHEN 325 MG/10.15 ML UDCUP PEG PRN (07:22)
[2019-09-07] MEDS: DOCUSATE SODIUM 100 MG CAPSULE PO SCH ×2 (08:18→20:36)
[2019-09-07] MEDS: FERROUS SULFATE 300 MG/5 ML UDCUP PO SCH ×3 (08:18→20:36)
[2019-09-07] MEDS: CINACALCET 30 MG TABLET PO SCH (08:18)
[2019-09-07] MEDS: MULTIVITAMIN (CENTRUM) TABLET PO SCH (08:19)
[2019-09-07] MEDS: DONEPEZIL 10 MG TABLET PO SCH (08:19)
[2019-09-07] MEDS: OMEGA 3 ACID ETHYL ESTERS 1 GM CAPSULE PO SCH ×2 (08:19→20:36)
[2019-09-07] MEDS: ATORVASTATIN 20 MG TABLET PO SCH (08:19)
[2019-09-07] MEDS: OMEPRAZOLE ODT 20 MG TABLET PEG SCH (08:19)
[2019-09-07] MEDS: MEMANTINE 10 MG TABLET PO SCH ×2 (08:19→20:36)
[2019-09-07] MEDS: METOPROLOL TARTRATE 25 MG TABLET PO SCH ×2 (08:19→20:36)
[2019-09-07] MEDS: amLODIPine 10 MG TABLET PO SCH (08:19)
[2019-09-07] MEDS: VANCOMYCIN INJ 1,000 MG in SODIUM CHLORIDE 0.9% 250 ML IV SCH (08:20)
[2019-09-08] MEDS: FERROUS SULFATE 300 MG/5 ML UDCUP PO SCH ×3 (08:46→20:07)
[2019-09-08] MEDS: OMEGA 3 ACID ETHYL ESTERS 1 GM CAPSULE PO SCH ×2 (08:46→20:08)
[2019-09-08] MEDS: METOPROLOL TARTRATE 25 MG TABLET PO SCH ×2 (08:46→20:11)
[2019-09-08] MEDS: MULTIVITAMIN (CENTRUM) TABLET PO SCH (08:46)
[2019-09-08] MEDS: ATORVASTATIN 20 MG TABLET PO SCH (08:46)
[2019-09-08] MEDS: DOCUSATE SODIUM 100 MG CAPSULE PO SCH ×2 (08:46→20:07)
[2019-09-08] MEDS: DONEPEZIL 10 MG TABLET PO SCH (08:46)
[2019-09-08] MEDS: MEMANTINE 10 MG TABLET PO SCH ×2 (08:46→20:08)
[2019-09-08] MEDS: OMEPRAZOLE ODT 20 MG TABLET PEG SCH (08:47)
[2019-09-08] MEDS: CINACALCET 30 MG TABLET PO SCH (08:47)
[2019-09-08] MEDS: amLODIPine 10 MG TABLET PO SCH (08:47)
[2019-09-08] MEDS: ACETAMINOPHEN 325 MG/10.15 ML UDCUP PEG PRN (12:22)
[2019-09-09 05:46] LABS: Basophils # 0.1 10*3/uL (0.0-0.2); Basophils % 0.4 % (0.0-0.8); Eosinophils # 0.2 10*3/uL (0.0-0.87); Eosinophils % 1.7 % (0.00-10.9); Hemoglobin 9.8 GM/DL (12.0-16.0); Immature Granulocytes % 1.3 %; Immature Granulocytes Absolute 0.15 #; Lymphocytes % 16.8 % (21.3-54.2); Mean Corpuscular HGB Conc 30.6 GM/DL (32-36); Mean Corpuscular Volume 93.6 FL (87-102); Mean Platelet Volume 11.6 FL (9.6-12.0); Monocytes % 14.3 % (1.7-12.7); Neutrophils % 65.5 % (38.7-73.9); Platelet Count 291 T/CUMM (130-400); Red Blood Count 3.42 MC/CUMM (3.8-5.5); Red Cell Distribution Width 17.2 % (9.3-17.3); White Blood Count 11.9 T/CUMM (4-12)
[2019-09-09] MEDS: FERROUS SULFATE 300 MG/5 ML UDCUP PO SCH ×3 (08:10→21:29)
[2019-09-09] MEDS: amLODIPine 10 MG TABLET PO SCH (08:11)
[2019-09-09] MEDS: DONEPEZIL 10 MG TABLET PO SCH (08:11)
[2019-09-09] MEDS: OMEPRAZOLE ODT 20 MG TABLET PEG SCH (08:11)
[2019-09-09] MEDS: CINACALCET 30 MG TABLET PO SCH (08:11)
[2019-09-09] MEDS: ACETAMINOPHEN 325 MG/10.15 ML UDCUP PEG PRN (08:11)
[2019-09-09] MEDS: MEMANTINE 10 MG TABLET PO SCH ×2 (08:11→21:29)
[2019-09-09] MEDS: OMEGA 3 ACID ETHYL ESTERS 1 GM CAPSULE PO SCH ×2 (08:11→21:29)
[2019-09-09] MEDS: METOPROLOL TARTRATE 25 MG TABLET PO SCH ×2 (08:11→21:29)
[2019-09-09] MEDS: DOCUSATE SODIUM 100 MG CAPSULE PO SCH ×2 (08:11→21:29)
[2019-09-09] MEDS: MULTIVITAMIN (CENTRUM) TABLET PO SCH (08:11)
[2019-09-09] MEDS ORDERED: LEVOFLOXACIN INJ 500 MG in PREMIX 1 EACH IV SCH (10:00)
[2019-09-09 11:31] LABS: Amorphous Crystals,Urine Occasional /HPF (Few); Apearance,Urine Slightly Hazy (Clear); Bacteria,Urine Occasional /HPF (Few); Bilirubin,Urine Negative (Negative); Blood, Urine Negative (Negative); Glucose,Urine (UA) Negative (Negative); Ketones,Urine Negative (Negative); Mucus,Urine Occasional /LPF (Occasional); Nitrite,Urine Negative (Negative); Protein,Urine 100 MG/DL; RBC,Urine 1 /HPF (0-4); Squamous Epithelial Cell,Urine Occasional /HPF (0-10); Urine Color Yellow (Yellow); Urine Specific Gravity 1.013 (1.001-1.035); Urine Urobilinogen < 2.0 EU/DL (0.2-1.0); WBC,Urine 2 /HPF (0-6)
[2019-09-09] MEDS: MICAFUNGIN 100 MG in SODIUM CHLORIDE 0.9% 100 ML IV SCH (16:56)
[2019-09-10] MEDS: ACETAMINOPHEN 325 MG/10.15 ML UDCUP PEG PRN ×2 (05:29→21:07)
[2019-09-10] MEDS: MULTIVITAMIN (CENTRUM) TABLET PO SCH (07:54)
[2019-09-10] MEDS: OMEGA 3 ACID ETHYL ESTERS 1 GM CAPSULE PO SCH ×2 (07:54→21:03)
[2019-09-10] MEDS: DOCUSATE SODIUM 100 MG CAPSULE PO SCH ×2 (07:54→21:04)
[2019-09-10] MEDS: CINACALCET 30 MG TABLET PO SCH (07:54)
[2019-09-10] MEDS: FERROUS SULFATE 300 MG/5 ML UDCUP PO SCH ×3 (08:01→21:03)
[2019-09-10] MEDS: amLODIPine 10 MG TABLET PO SCH (08:01)
[2019-09-10] MEDS: METOPROLOL TARTRATE 25 MG TABLET PO SCH ×2 (08:01→21:03)
[2019-09-10] MEDS: MEMANTINE 10 MG TABLET PO SCH ×2 (08:02→21:03)
[2019-09-10] MEDS: OMEPRAZOLE ODT 20 MG TABLET PEG SCH (08:04)
[2019-09-10] MEDS: cloNIDine 0.3 MG/24 HR PATCH TRANSDERM SCH (10:24)
[2019-09-10] MEDS: HEPARIN 5,000 UNIT/1 ML VIAL SUBCUT SCH ×2 (10:31→21:03)
[2019-09-10] MEDS: MICAFUNGIN 100 MG in SODIUM CHLORIDE 0.9% 100 ML IV SCH (15:29)
[2019-09-11] MEDS: ACETAMINOPHEN 325 MG/10.15 ML UDCUP PEG PRN (04:47)
[2019-09-11] MEDS: OMEPRAZOLE ODT 20 MG TABLET PEG SCH (08:45)
[2019-09-11] MEDS: CINACALCET 30 MG TABLET PO SCH (08:45)
[2019-09-11] MEDS: MULTIVITAMIN (CENTRUM) TABLET PO SCH (08:45)
[2019-09-11] MEDS: METOPROLOL TARTRATE 25 MG TABLET PO SCH ×2 (08:45→22:40)
[2019-09-11] MEDS: FERROUS SULFATE 300 MG/5 ML UDCUP PO SCH ×3 (08:45→22:41)
[2019-09-11] MEDS: OMEGA 3 ACID ETHYL ESTERS 1 GM CAPSULE PO SCH ×2 (08:45→22:40)
[2019-09-11] MEDS: DOCUSATE SODIUM 100 MG CAPSULE PO SCH ×2 (08:46→22:41)
[2019-09-11] MEDS: amLODIPine 10 MG TABLET PO SCH (08:46)
[2019-09-11] MEDS: HEPARIN 5,000 UNIT/1 ML VIAL SUBCUT SCH ×2 (08:46→22:41)
[2019-09-11] MEDS: MEMANTINE 10 MG TABLET PO SCH ×2 (08:53→22:41)
[2019-09-11] MEDS: MICAFUNGIN 100 MG in SODIUM CHLORIDE 0.9% 100 ML IV SCH (15:26)
[2019-09-12 06:23] LABS: Calcium 10.1 MG/DL (8.5-10.1); Osmolality,Calculated 301.3 MOS/KG (273-304); Prealbumin 14.4 MG/DL (20-40)
[2019-09-12] MEDS: METOPROLOL TARTRATE 25 MG TABLET PO SCH ×2 (08:30→22:12)
[2019-09-12] MEDS: amLODIPine 10 MG TABLET PO SCH (08:30)
[2019-09-12] MEDS: MEMANTINE 10 MG TABLET PO SCH ×2 (08:30→22:12)
[2019-09-12] MEDS: CINACALCET 30 MG TABLET PO SCH (08:30)
[2019-09-12] MEDS: DOCUSATE SODIUM 100 MG CAPSULE PO SCH ×2 (08:30→22:12)
[2019-09-12] MEDS: MULTIVITAMIN (CENTRUM) TABLET PO SCH (08:30)
[2019-09-12] MEDS: HEPARIN 5,000 UNIT/1 ML VIAL SUBCUT SCH ×2 (08:30→22:12)
[2019-09-12] MEDS: OMEGA 3 ACID ETHYL ESTERS 1 GM CAPSULE PO SCH ×2 (08:31→22:12)
[2019-09-12] MEDS: FERROUS SULFATE 300 MG/5 ML UDCUP PO SCH ×3 (08:31→22:22)
[2019-09-12] MEDS: OMEPRAZOLE ODT 20 MG TABLET PEG SCH (08:44)
[2019-09-12] MEDS: MICAFUNGIN 100 MG in SODIUM CHLORIDE 0.9% 100 ML IV SCH (15:51)
[2019-09-13] MEDS ORDERED: FUROSEMIDE 20 MG/2 ML VIAL ONE (05:41)
[2019-09-13] MEDS: ACETAMINOPHEN 325 MG/10.15 ML UDCUP PEG PRN (05:50)
[2019-09-13] MEDS ORDERED: FUROSEMIDE 40 MG/4 ML VIAL IV ONE (06:30)
[2019-09-13] MEDS: FUROSEMIDE 20 MG/2 ML VIAL IV SCH (09:03)
[2019-09-13] MEDS: MEMANTINE 10 MG TABLET PO SCH ×2 (09:04→22:00)
[2019-09-13] MEDS: MULTIVITAMIN (CENTRUM) TABLET PO SCH (09:04)
[2019-09-13] MEDS: DOCUSATE SODIUM 100 MG CAPSULE PO SCH ×2 (09:04→22:00)
[2019-09-13] MEDS: amLODIPine 10 MG TABLET PO SCH (09:04)
[2019-09-13] MEDS: OMEPRAZOLE ODT 20 MG TABLET PEG SCH (09:04)
[2019-09-13] MEDS: METOPROLOL TARTRATE 25 MG TABLET PO SCH ×2 (09:04→22:00)
[2019-09-13] MEDS: OMEGA 3 ACID ETHYL ESTERS 1 GM CAPSULE PO SCH ×2 (09:04→22:00)
[2019-09-13] MEDS: HEPARIN 5,000 UNIT/1 ML VIAL SUBCUT SCH ×2 (09:06→22:08)
[2019-09-13] MEDS: FERROUS SULFATE 300 MG/5 ML UDCUP PO SCH ×3 (09:07→22:00)
[2019-09-13] MEDS: CINACALCET 30 MG TABLET PO SCH (09:10)
[2019-09-13] MEDS: MEROPENEM 500 MG in SODIUM CHLORIDE 0.9% 100 ML IV SCH ×2 (09:21→16:39)
[2019-09-13] MEDS: MICAFUNGIN 100 MG in SODIUM CHLORIDE 0.9% 100 ML IV SCH (15:06)
[2019-09-14] MEDS: ACETYLCYSTEINE 20% 800 MG/4 ML VIAL RESP TX SCH ×4 (00:40→23:52)
[2019-09-14] MEDS: ALBUTEROL/IPRATROPIUM 3 ML NEB RESP TX SCH ×7 (00:40→23:52)
[2019-09-14] MEDS: MEROPENEM 500 MG in SODIUM CHLORIDE 0.9% 100 ML IV SCH ×3 (01:59→17:40)
[2019-09-14] MEDS: DOCUSATE SODIUM 100 MG CAPSULE PO SCH ×2 (08:46→22:05)
[2019-09-14] MEDS: MEMANTINE 10 MG TABLET PO SCH ×2 (08:46→22:05)
[2019-09-14] MEDS: HEPARIN 5,000 UNIT/1 ML VIAL SUBCUT SCH ×2 (08:46→22:05)
[2019-09-14] MEDS: OMEPRAZOLE ODT 20 MG TABLET PEG SCH (08:47)
[2019-09-14] MEDS: amLODIPine 10 MG TABLET PO SCH (08:47)
[2019-09-14] MEDS: OMEGA 3 ACID ETHYL ESTERS 1 GM CAPSULE PO SCH ×2 (08:47→22:05)
[2019-09-14] MEDS: MULTIVITAMIN (CENTRUM) TABLET PO SCH (08:47)
[2019-09-14] MEDS: METOPROLOL TARTRATE 25 MG TABLET PO SCH ×2 (08:47→22:05)
[2019-09-14] MEDS: FERROUS SULFATE 300 MG/5 ML UDCUP PO SCH ×3 (08:47→22:05)
[2019-09-14] MEDS: FUROSEMIDE 20 MG/2 ML VIAL IV SCH (08:47)
[2019-09-14 18:11] LABS: Apearance,Urine CLEAR (Clear); Bilirubin,Urine Negative (Negative); Blood, Urine Small mg/dL (Negative); Glucose,Urine (UA) Negative (Negative); Ketones,Urine Negative (Negative); Mucus,Urine Occasional /LPF (Occasional); Nitrite,Urine Negative (Negative); Protein,Urine 100 MG/DL; RBC,Urine <1 /HPF (0-4); Urine Color Yellow (Yellow); Urine Specific Gravity 1.011 (1.001-1.035); Urine Urobilinogen < 2.0 EU/DL (0.2-1.0); WBC,Urine <1 /HPF (0-6)
[2019-09-15] MEDS: MEROPENEM 500 MG in SODIUM CHLORIDE 0.9% 100 ML IV SCH ×3 (00:26→17:48)
[2019-09-15] MEDS: ALBUTEROL/IPRATROPIUM 3 ML NEB RESP TX SCH ×5 (03:14→19:20)
[2019-09-15] MEDS: ACETAMINOPHEN 325 MG/10.15 ML UDCUP PEG PRN (04:10)
[2019-09-15 04:54] LABS: Basophils # 0.1 10*3/uL (0.0-0.2); Basophils % 0.6 % (0.0-0.8); Eosinophils # 0.4 10*3/uL (0.0-0.87); Eosinophils % 3.9 % (0.00-10.9); Hematocrit 32.3 VOL% (35.7-47.0); Hemoglobin 9.9 GM/DL (12.0-16.0); Immature Granulocytes % 1.6 %; Immature Granulocytes Absolute 0.15 #; Lymphocytes # 2.4 10*3/uL (1.4-4.0); Lymphocytes % 25.4 % (21.3-54.2); Mean Corpuscular HGB Conc 30.7 GM/DL (32-36); Mean Corpuscular Volume 92.3 FL (87-102); Neutrophils % 58.5 % (38.7-73.9); Platelet Count 387 T/CUMM (130-400); Red Cell Distribution Width 16.9 % (9.3-17.3); White Blood Count 9.3 T/CUMM (4-12)
[2019-09-15 05:18] LABS: Band Neutrophils 1 % (0-10); Eosinophils 5 % (0-10); Lymphocytes 18 % (20-55); Myelocytes 1 %; Platelet Estimate Adequate; Segmented Neutrophils 64 % (50-85); Total Cells Counted 100
[2019-09-15 05:19] LABS: Hypochromasia 1+
[2019-09-15 05:21] LABS: Calcium 10.4 MG/DL (8.5-10.1); Osmolality,Calculated 297.4 MOS/KG (273-304)
[2019-09-15 05:22] LABS: Prealbumin 17.9 MG/DL (20-40)
[2019-09-15] MEDS: ACETYLCYSTEINE 20% 800 MG/4 ML VIAL RESP TX SCH ×2 (07:04→15:44)
[2019-09-15] MEDS: METOPROLOL TARTRATE 25 MG TABLET PO SCH ×2 (09:51→20:59)
[2019-09-15] MEDS: MEMANTINE 10 MG TABLET PO SCH ×2 (09:51→21:00)
[2019-09-15] MEDS: OMEGA 3 ACID ETHYL ESTERS 1 GM CAPSULE PO SCH ×2 (09:51→20:59)
[2019-09-15] MEDS: amLODIPine 10 MG TABLET PO SCH (09:51)
[2019-09-15] MEDS: FERROUS SULFATE 300 MG/5 ML UDCUP PO SCH ×3 (09:51→20:59)
[2019-09-15] MEDS: OMEPRAZOLE ODT 20 MG TABLET PEG SCH (09:51)
[2019-09-15] MEDS: DOCUSATE SODIUM 100 MG CAPSULE PO SCH ×2 (09:52→20:59)
[2019-09-15] MEDS: HEPARIN 5,000 UNIT/1 ML VIAL SUBCUT SCH ×2 (09:52→21:00)
[2019-09-15] MEDS: MULTIVITAMIN (CENTRUM) TABLET PO SCH (09:52)
[2019-09-15] MEDS: FUROSEMIDE 20 MG/2 ML VIAL IV SCH (09:54)
[2019-09-16] MEDS: ALBUTEROL/IPRATROPIUM 3 ML NEB RESP TX SCH ×6 (00:27→20:27)
[2019-09-16] MEDS: ACETYLCYSTEINE 20% 800 MG/4 ML VIAL RESP TX SCH ×3 (00:27→14:45)
[2019-09-16] MEDS: MEROPENEM 500 MG in SODIUM CHLORIDE 0.9% 100 ML IV SCH ×3 (00:43→17:17)
[2019-09-16 05:33] LABS: Basophils # 0.1 10*3/uL (0.0-0.2); Basophils % 0.7 % (0.0-0.8); Eosinophils # 0.4 10*3/uL (0.0-0.87); Eosinophils % 4.1 % (0.00-10.9); Hematocrit 30.4 VOL% (35.7-47.0); Hemoglobin 9.4 GM/DL (12.0-16.0); Lymphocytes % 29.4 % (21.3-54.2); Mean Corpuscular HGB Conc 30.9 GM/DL (32-36); Mean Corpuscular Volume 91.6 FL (87-102); Mean Platelet Volume 10.5 FL (9.6-12.0); Monocytes % 10.1 % (1.7-12.7); NRBC # 0.02 10*3/uL; Neutrophils % 53.7 % (38.7-73.9); Platelet Count 388 T/CUMM (130-400); Red Blood Count 3.32 MC/CUMM (3.8-5.5); White Blood Count 10.1 T/CUMM (4-12)
[2019-09-16 07:23] LABS: Anisocytosis 2+; Hypochromasia 2+; Poikilocytosis Slight
[2019-09-16 07:24] LABS: Platelet Estimate Adequate; Polychromasia Slight; Spherocytes Few
[2019-09-16] MEDS: FUROSEMIDE 20 MG/2 ML VIAL IV SCH (10:05)
[2019-09-16] MEDS: OMEPRAZOLE ODT 20 MG TABLET PEG SCH (10:05)
[2019-09-16] MEDS: FERROUS SULFATE 300 MG/5 ML UDCUP PO SCH ×3 (10:05→20:12)
[2019-09-16] MEDS: MEMANTINE 10 MG TABLET PO SCH ×2 (10:06→20:12)
[2019-09-16] MEDS: HEPARIN 5,000 UNIT/1 ML VIAL SUBCUT SCH ×2 (10:06→20:12)
[2019-09-16] MEDS: METOPROLOL TARTRATE 25 MG TABLET PO SCH ×2 (10:06→20:12)
[2019-09-16] MEDS: DOCUSATE SODIUM 100 MG CAPSULE PO SCH ×2 (10:06→20:13)
[2019-09-16] MEDS: OMEGA 3 ACID ETHYL ESTERS 1 GM CAPSULE PO SCH ×2 (10:06→20:13)
[2019-09-16] MEDS: amLODIPine 10 MG TABLET PO SCH (10:06)
[2019-09-16] MEDS: MULTIVITAMIN (CENTRUM) TABLET PO SCH (15:08)
[2019-09-17] MEDS: ALBUTEROL/IPRATROPIUM 3 ML NEB RESP TX SCH ×7 (00:15→23:14)
[2019-09-17] MEDS: MEROPENEM 500 MG in SODIUM CHLORIDE 0.9% 100 ML IV SCH ×3 (00:41→16:17)
[2019-09-17] MEDS: ACETAMINOPHEN 325 MG/10.15 ML UDCUP PEG PRN (04:36)
[2019-09-17 06:53] LABS: Basophils # 0.1 10*3/uL (0.0-0.2); Basophils % 0.7 % (0.0-0.8); Eosinophils # 0.5 10*3/uL (0.0-0.87); Eosinophils % 5.3 % (0.00-10.9); Hemoglobin 9.7 GM/DL (12.0-16.0); Immature Granulocytes % 2.1 %; Immature Granulocytes Absolute 0.21 #; Lymphocytes # 2.4 10*3/uL (1.4-4.0); Lymphocytes % 24.9 % (21.3-54.2); Mean Corpuscular HGB Conc 30.3 GM/DL (32-36); Mean Corpuscular Volume 92.8 FL (87-102); Mean Platelet Volume 10.6 FL (9.6-12.0); Monocytes % 10.6 % (1.7-12.7); NRBC # 0.02 10*3/uL; Neutrophils % 56.4 % (38.7-73.9); Platelet Count 428 T/CUMM (130-400); Red Blood Count 3.45 MC/CUMM (3.8-5.5); Red Cell Distribution Width 17.2 % (9.3-17.3); White Blood Count 9.8 T/CUMM (4-12)
[2019-09-17 08:22] LABS: Eosinophils 5 % (0-10); Hypochromasia 1+; Lymphocytes 23 % (20-55); Microcytosis 1+; Myelocytes 1 %; Platelet Estimate Adequate; Segmented Neutrophils 57 % (50-85); Total Cells Counted 100
[2019-09-17] MEDS: FUROSEMIDE 20 MG/2 ML VIAL IV SCH (10:45)
[2019-09-17] MEDS: cloNIDine 0.3 MG/24 HR PATCH TRANSDERM SCH (10:46)
[2019-09-17] MEDS: OMEGA 3 ACID ETHYL ESTERS 1 GM CAPSULE PO SCH ×2 (10:47→20:49)
[2019-09-17] MEDS: MEMANTINE 10 MG TABLET PO SCH ×2 (10:47→20:50)
[2019-09-17] MEDS: amLODIPine 10 MG TABLET PO SCH (10:47)
[2019-09-17] MEDS: METOPROLOL TARTRATE 25 MG TABLET PO SCH ×2 (10:47→20:50)
[2019-09-17] MEDS: MULTIVITAMIN (CENTRUM) TABLET PO SCH (10:47)
[2019-09-17] MEDS: OMEPRAZOLE ODT 20 MG TABLET PEG SCH (10:47)
[2019-09-17] MEDS: HEPARIN 5,000 UNIT/1 ML VIAL SUBCUT SCH ×2 (10:48→20:49)
[2019-09-17] MEDS: FERROUS SULFATE 300 MG/5 ML UDCUP PO SCH ×3 (10:48→20:49)
[2019-09-17] MEDS: DOCUSATE SODIUM 100 MG CAPSULE PO SCH ×2 (10:48→20:49)
[2019-09-18] MEDS: MEROPENEM 500 MG in SODIUM CHLORIDE 0.9% 100 ML IV SCH ×3 (00:46→16:14)
[2019-09-18] MEDS: ALBUTEROL/IPRATROPIUM 3 ML NEB RESP TX SCH ×6 (02:37→23:22)
[2019-09-18 06:38] LABS: Basophils # 0.1 10*3/uL (0.0-0.2); Basophils % 0.7 % (0.0-0.8); Eosinophils # 0.7 10*3/uL (0.0-0.87); Eosinophils % 6.5 % (0.00-10.9); Hematocrit 32.5 VOL% (35.7-47.0); Hemoglobin 10.1 GM/DL (12.0-16.0); Immature Granulocytes % 1.6 %; Immature Granulocytes Absolute 0.18 #; Lymphocytes # 2.5 10*3/uL (1.4-4.0); Lymphocytes % 23.1 % (21.3-54.2); Mean Corpuscular HGB Conc 31.1 GM/DL (32-36); Mean Corpuscular Volume 90.3 FL (87-102); Mean Platelet Volume 10.7 FL (9.6-12.0); Monocytes % 10.1 % (1.7-12.7); NRBC # 0.02 10*3/uL; Platelet Count 439 T/CUMM (130-400); Red Cell Distribution Width 17.2 % (9.3-17.3); White Blood Count 10.9 T/CUMM (4-12)
[2019-09-18] MEDS: MULTIVITAMIN (CENTRUM) TABLET PO SCH (09:01)
[2019-09-18] MEDS: FERROUS SULFATE 300 MG/5 ML UDCUP PO SCH ×3 (09:01→20:42)
[2019-09-18] MEDS: amLODIPine 10 MG TABLET PO SCH (09:02)
[2019-09-18] MEDS: METOPROLOL TARTRATE 25 MG TABLET PO SCH ×2 (09:02→20:42)
[2019-09-18] MEDS: MEMANTINE 10 MG TABLET PO SCH ×2 (09:02→20:42)
[2019-09-18] MEDS: OMEPRAZOLE ODT 20 MG TABLET PEG SCH (09:02)
[2019-09-18] MEDS: HEPARIN 5,000 UNIT/1 ML VIAL SUBCUT SCH ×2 (09:03→20:43)
[2019-09-18] MEDS: OMEGA 3 ACID ETHYL ESTERS 1 GM CAPSULE PO SCH ×2 (09:15→20:43)
[2019-09-18] MEDS: DOCUSATE SODIUM 100 MG CAPSULE PO SCH ×2 (09:15→20:42)
[2019-09-18] MEDS: FUROSEMIDE 20 MG/2 ML VIAL IV SCH (10:25)
[2019-09-18] MEDS ORDERED: ZINC OXIDE PASTE 113 GM TUBE TOP PRN (16:08)
[2019-09-19] MEDS: MEROPENEM 500 MG in SODIUM CHLORIDE 0.9% 100 ML IV SCH ×2 (00:13→08:35)
[2019-09-19] MEDS: ALBUTEROL/IPRATROPIUM 3 ML NEB RESP TX SCH ×5 (02:48→19:57)
[2019-09-19 05:02] LABS: Basophils # 0.1 10*3/uL (0.0-0.2); Basophils % 0.7 % (0.0-0.8); Eosinophils # 0.5 10*3/uL (0.0-0.87); Eosinophils % 5.6 % (0.00-10.9); Hematocrit 32.4 VOL% (35.7-47.0); Hemoglobin 9.7 GM/DL (12.0-16.0); Immature Granulocytes % 1.5 %; Immature Granulocytes Absolute 0.14 #; Lymphocytes # 2.3 10*3/uL (1.4-4.0); Lymphocytes % 24.8 % (21.3-54.2); Mean Corpuscular HGB Conc 29.9 GM/DL (32-36); Mean Corpuscular Volume 94.2 FL (87-102); Mean Platelet Volume 10.5 FL (9.6-12.0); Monocytes % 11.3 % (1.7-12.7); Neutrophils % 56.1 % (38.7-73.9); Platelet Count 421 T/CUMM (130-400); Red Blood Count 3.44 MC/CUMM (3.8-5.5); Red Cell Distribution Width 17.3 % (9.3-17.3); White Blood Count 9.2 T/CUMM (4-12)
[2019-09-19 05:19] LABS: Calcium 11.5 MG/DL (8.5-10.1); Osmolality,Calculated 296.5 MOS/KG (273-304)
[2019-09-19] MEDS: OMEGA 3 ACID ETHYL ESTERS 1 GM CAPSULE PO SCH ×2 (08:32→21:45)
[2019-09-19] MEDS: amLODIPine 10 MG TABLET PO SCH (08:32)
[2019-09-19] MEDS: MEMANTINE 10 MG TABLET PO SCH ×2 (08:32→21:44)
[2019-09-19] MEDS: MULTIVITAMIN (CENTRUM) TABLET PO SCH (08:32)
[2019-09-19] MEDS: DOCUSATE SODIUM 100 MG CAPSULE PO SCH ×2 (08:32→21:44)
[2019-09-19] MEDS: METOPROLOL TARTRATE 25 MG TABLET PO SCH ×2 (08:32→21:44)
[2019-09-19] MEDS: OMEPRAZOLE ODT 20 MG TABLET PEG SCH (08:32)
[2019-09-19] MEDS: FERROUS SULFATE 300 MG/5 ML UDCUP PO SCH ×3 (08:33→21:45)
[2019-09-19] MEDS: FUROSEMIDE 20 MG/2 ML VIAL IV SCH (08:33)
[2019-09-19] MEDS: HEPARIN 5,000 UNIT/1 ML VIAL SUBCUT SCH ×2 (08:34→21:45)
[2019-09-20] MEDS: ALBUTEROL/IPRATROPIUM 3 ML NEB RESP TX SCH ×7 (00:15→23:00)
[2019-09-20 06:24] LABS: Basophils # 0.1 10*3/uL (0.0-0.2); Basophils % 0.8 % (0.0-0.8); Eosinophils # 0.6 10*3/uL (0.0-0.87); Eosinophils % 5.7 % (0.00-10.9); Hematocrit 31.6 VOL% (35.7-47.0); Hemoglobin 9.5 GM/DL (12.0-16.0); Immature Granulocytes % 1.2 %; Immature Granulocytes Absolute 0.13 #; Lymphocytes # 2.4 10*3/uL (1.4-4.0); Lymphocytes % 22.4 % (21.3-54.2); Mean Corpuscular HGB Conc 30.1 GM/DL (32-36); Mean Corpuscular Volume 93.8 FL (87-102); Mean Platelet Volume 10.9 FL (9.6-12.0); Monocytes % 12.5 % (1.7-12.7); Neutrophils % 57.4 % (38.7-73.9); Platelet Count 448 T/CUMM (130-400); Red Blood Count 3.37 MC/CUMM (3.8-5.5); Red Cell Distribution Width 17.2 % (9.3-17.3); White Blood Count 10.5 T/CUMM (4-12)
[2019-09-20 06:35] LABS: Calcium 11.8 MG/DL (8.5-10.1)
[2019-09-20] MEDS: HEPARIN 5,000 UNIT/1 ML VIAL SUBCUT SCH ×2 (08:50→21:47)
[2019-09-20] MEDS: DOCUSATE SODIUM 100 MG CAPSULE PO SCH ×2 (08:50→21:46)
[2019-09-20] MEDS: MULTIVITAMIN (CENTRUM) TABLET PO SCH (08:50)
[2019-09-20] MEDS: FERROUS SULFATE 300 MG/5 ML UDCUP PO SCH ×3 (08:50→21:47)
[2019-09-20] MEDS: FUROSEMIDE 20 MG/2 ML VIAL IV SCH (08:50)
[2019-09-20] MEDS: OMEGA 3 ACID ETHYL ESTERS 1 GM CAPSULE PO SCH ×2 (08:50→21:46)
[2019-09-20] MEDS: MEMANTINE 10 MG TABLET PO SCH ×2 (08:51→21:46)
[2019-09-20] MEDS: amLODIPine 10 MG TABLET PO SCH (08:51)
[2019-09-20] MEDS: METOPROLOL TARTRATE 25 MG TABLET PO SCH ×2 (08:51→21:46)
[2019-09-20] MEDS: OMEPRAZOLE ODT 20 MG TABLET PEG SCH (08:51)
[2019-09-21] MEDS: ALBUTEROL/IPRATROPIUM 3 ML NEB RESP TX SCH ×6 (03:00→23:58)
[2019-09-21] MEDS: MULTIVITAMIN (CENTRUM) TABLET PO SCH (10:46)
[2019-09-21] MEDS: OMEGA 3 ACID ETHYL ESTERS 1 GM CAPSULE PO SCH ×2 (10:47→21:38)
[2019-09-21] MEDS: amLODIPine 10 MG TABLET PO SCH (10:47)
[2019-09-21] MEDS: FERROUS SULFATE 300 MG/5 ML UDCUP PO SCH ×3 (10:47→21:38)
[2019-09-21] MEDS: DOCUSATE SODIUM 100 MG CAPSULE PO SCH ×2 (10:47→21:38)
[2019-09-21] MEDS: OMEPRAZOLE ODT 20 MG TABLET PEG SCH (10:47)
[2019-09-21] MEDS: HEPARIN 5,000 UNIT/1 ML VIAL SUBCUT SCH ×2 (10:47→21:38)
[2019-09-21] MEDS: MEMANTINE 10 MG TABLET PO SCH ×2 (10:47→21:38)
[2019-09-21] MEDS: METOPROLOL TARTRATE 25 MG TABLET PO SCH ×2 (10:47→21:38)
[2019-09-21] MEDS: FUROSEMIDE 20 MG/2 ML VIAL IV SCH (10:48)
[2019-09-21] MEDS: FUROSEMIDE 20 MG TABLET PO SCH (11:51)
[2019-09-21] MEDS: ACETAMINOPHEN 325 MG/10.15 ML UDCUP PEG PRN (21:38)
[2019-09-22] MEDS: ALBUTEROL/IPRATROPIUM 3 ML NEB RESP TX SCH ×6 (01:20→23:41)
[2019-09-22] MEDS: MULTIVITAMIN (CENTRUM) TABLET PO SCH (09:34)
[2019-09-22] MEDS: FUROSEMIDE 20 MG TABLET PO SCH (09:35)
[2019-09-22] MEDS: OMEGA 3 ACID ETHYL ESTERS 1 GM CAPSULE PO SCH ×2 (09:35→22:53)
[2019-09-22] MEDS: OMEPRAZOLE ODT 20 MG TABLET PEG SCH (09:35)
[2019-09-22] MEDS: HEPARIN 5,000 UNIT/1 ML VIAL SUBCUT SCH ×2 (09:35→21:00)
[2019-09-22] MEDS: FERROUS SULFATE 300 MG/5 ML UDCUP PO SCH ×3 (09:35→22:53)
[2019-09-22] MEDS: MEMANTINE 10 MG TABLET PO SCH ×2 (09:35→22:54)
[2019-09-22] MEDS: amLODIPine 10 MG TABLET PO SCH (09:35)
[2019-09-22] MEDS: DOCUSATE SODIUM 100 MG CAPSULE PO SCH ×2 (09:35→22:53)
[2019-09-22] MEDS: METOPROLOL TARTRATE 25 MG TABLET PO SCH ×2 (09:35→22:53)
[2019-09-22] MEDS ORDERED: ACETAMINOPHEN 325 MG/10.15 ML UDCUP PEG ONE (18:30)
[2019-09-23] MEDS: ALBUTEROL/IPRATROPIUM 3 ML NEB RESP TX SCH ×3 (03:43→11:15)
[2019-09-23] MEDS: DOCUSATE SODIUM 100 MG CAPSULE PO SCH (09:10)
[2019-09-23] MEDS: MULTIVITAMIN (CENTRUM) TABLET PO SCH (09:10)
[2019-09-23] MEDS: FERROUS SULFATE 300 MG/5 ML UDCUP PO SCH (09:10)
[2019-09-23] MEDS: OMEGA 3 ACID ETHYL ESTERS 1 GM CAPSULE PO SCH (09:10)
[2019-09-23] MEDS: HEPARIN 5,000 UNIT/1 ML VIAL SUBCUT SCH (09:11)
[2019-09-23] MEDS: OMEPRAZOLE ODT 20 MG TABLET PEG SCH (09:11)
[2019-09-23] MEDS: amLODIPine 10 MG TABLET PO SCH (09:11)
[2019-09-23] MEDS: MEMANTINE 10 MG TABLET PO SCH (09:11)
[2019-09-23] MEDS: METOPROLOL TARTRATE 25 MG TABLET PO SCH (09:11)
[2019-09-23] MEDS: FUROSEMIDE 20 MG TABLET PO SCH (09:11)
[2019-09-23 12:09] VITALS: BP 154/50
== END 2019-09-23 15:55 | DRG 193 ==
LOC: EDBD → EDUNIT# → N.ED 16:10 → N.EDINP 18:34 → SUATTDRO 18:34 → N.2E 19:23 → N.CC 08-25 12:52 → N.2E 08-26 13:16 → N.4E 09-02 18:03 → N.2E 09-07 10:57 → N.3E 09-09 15:05
PROVIDERS: ADMIT Internal Medicine Geriatric Medicine; ATTEND Family Medicine

== ENCOUNTER 2019-09-23 21:36 | Inpatient (IN) ==
[2019-09-24 00:11] LABS: Basophils # 0.1 10*3/uL (0.0-0.2); Eosinophils % 0.3 % (0.00-10.9); Hematocrit 46.1 VOL% (35.7-47.0); Hemoglobin 14.3 GM/DL (12.0-16.0); Immature Granulocytes % 2.9 %; Immature Granulocytes Absolute 0.21 #; Lymphocytes # 0.8 10*3/uL (1.4-4.0); Lymphocytes % 10.5 % (21.3-54.2); Mean Platelet Volume 11.1 FL (9.6-12.0); Neutrophils % 76.3 % (38.7-73.9); Platelet Count 268 T/CUMM (130-400); Red Blood Count 5.18 MC/CUMM (3.8-5.5); White Blood Count 7.3 T/CUMM (4-12)
[2019-09-24 01:07] LABS: Albumin 1.8 G/DL (3.4-5.0); Bilirubin,Total 1.1 MG/DL (0.2-1.0); Calcium 11.4 MG/DL (8.5-10.1); Ferritin 2887.8 ng/ml (8-252); Osmolality,Calculated 285.1 MOS/KG (273-304); Total Protein 8.4 G/DL (6.4-8.3)
[2019-09-24] MEDS ORDERED: FUROSEMIDE 40 MG/4 ML VIAL IV STA (01:24)
[2019-09-24] MEDS ORDERED: NITROGLYCERIN SL 0.4 MG TABLET SL STA (01:55)
[2019-09-24] MEDS ORDERED: ASPIRIN EC 325 MG TABLET PO STA (01:55)
[2019-09-24] MEDS ORDERED: ENOXAPARIN 30 MG/0.3 ML SYRINGE SUBCUT STA (02:06)
[2019-09-24] MEDS ORDERED: NITROGLYCERIN 2% OINT 1 INCH/GM PACK TOP STA (03:38)
[2019-09-24] MEDS ORDERED: ENOXAPARIN 100 MG/ML SYRINGE SUBCUT ONE (03:52)
[2019-09-24] MEDS ORDERED: DEXTROSE 50% 25 GM/50 ML VIAL IV PRN (05:16)
[2019-09-24] MEDS ORDERED: GLUCAGON 1 MG VIAL IM PRN (05:16)
[2019-09-24] MEDS ORDERED: MAGNESIUM SULF RIDER 4 GM in PREMIX 1 EACH IV PRN (05:23)
[2019-09-24] MEDS ORDERED: MAGNESIUM SULF RIDER 2 GM in PREMIX 1 EACH IV PRN (05:23)
[2019-09-24] MEDS ORDERED: ONDANSETRON 4 MG/2 ML VIAL IV PRN (05:23)
[2019-09-24] MEDS ORDERED: ACETAMINOPHEN 325 MG/10.15 ML UDCUP PEG PRN (05:28)
[2019-09-24] MEDS ORDERED: DARBEPOETIN ALFA 100 MCG/ML VIAL SUBCUT SCH (05:30)
[2019-09-24] MEDS ORDERED: INSULIN REGULAR 100 UNIT/ML SUBCUT SCH (06:00)
[2019-09-24] MEDS ORDERED: ATORVASTATIN 20 MG TABLET PO SCH (08:00)
[2019-09-24] MEDS ORDERED: FUROSEMIDE 40 MG/4 ML VIAL IV SCH (08:00)
[2019-09-24] MEDS ORDERED: MULTIVITAMIN (CENTRUM) TABLET PO SCH (08:00)
[2019-09-24] MEDS ORDERED: NON-FORMULARY MEDICATION (Esomeprazole Magnesium [Nexium] 20 MG) PO SCH (08:00)
[2019-09-24] MEDS ORDERED: CINACALCET 30 MG TABLET PO SCH (08:00)
[2019-09-24 08:44] LABS: Basophils # 0.1 10*3/uL (0.0-0.2); Basophils % 0.7 % (0.0-0.8); Eosinophils # 0.1 10*3/uL (0.0-0.87); Eosinophils % 1.2 % (0.00-10.9); Hematocrit 28.2 VOL% (35.7-47.0); Immature Granulocytes % 1.8 %; Immature Granulocytes Absolute 0.22 #; Lymphocytes # 2.4 10*3/uL (1.4-4.0); Lymphocytes % 19.8 % (21.3-54.2); Mean Corpuscular HGB Conc 31.2 GM/DL (32-36); Mean Corpuscular Volume 90.1 FL (87-102); Mean Platelet Volume 11.1 FL (9.6-12.0); Monocytes % 13.5 % (1.7-12.7); Platelet Count 368 T/CUMM (130-400); Red Blood Count 3.13 MC/CUMM (3.8-5.5); Red Cell Distribution Width 16.8 % (9.3-17.3)
[2019-09-24 08:52] LABS: White Blood Count 11.9 T/CUMM (4-12)
[2019-09-24 08:53] LABS: Hemoglobin 8.8 GM/DL (12.0-16.0)
[2019-09-24] MEDS ORDERED: DONEPEZIL 10 MG TABLET PO SCH (09:00)
[2019-09-24] MEDS ORDERED: hydrALAZINE 25 MG TABLET PO SCH (09:00)
[2019-09-24] MEDS ORDERED: FERROUS SULFATE 325 MG TABLET PO SCH (09:00)
[2019-09-24] MEDS ORDERED: PANTOPRAZOLE 40 MG TABLET PO SCH (09:00)
[2019-09-24] MEDS ORDERED: cloNIDine 0.3 MG/24 HR PATCH TRANSDERM SCH (09:00)
[2019-09-24] MEDS ORDERED: MAGNESIUM HYDROXIDE SUSP 30 ML UDCUP PO PRN (09:00)
[2019-09-24] MEDS ORDERED: OMEGA 3 ACID ETHYL ESTERS 1 GM CAPSULE PO SCH (09:00)
[2019-09-24] MEDS ORDERED: amLODIPine 10 MG TABLET PO SCH (09:00)
[2019-09-24] MEDS ORDERED: DOCUSATE SODIUM 100 MG CAPSULE PO SCH (09:00)
[2019-09-24] MEDS ORDERED: METOPROLOL TARTRATE 25 MG TABLET PO SCH (09:00)
[2019-09-24] MEDS ORDERED: MEMANTINE 10 MG TABLET PO SCH (09:00)
[2019-09-24] MEDS ORDERED: SODIUM BICARBONATE 650 MG TABLET PO SCH (09:00)
[2019-09-24 09:07] LABS: Calcium 11.5 MG/DL (8.5-10.1)
[2019-09-24 09:08] LABS: Albumin 1.8 G/DL (3.4-5.0); Bilirubin,Total 1.2 MG/DL (0.2-1.0); Osmolality,Calculated 292.7 MOS/KG (273-304); Total Protein 8.3 G/DL (6.4-8.3)
[2019-09-24] MEDS ORDERED: MEMANTINE 10 MG TABLET PER TUBE SCH (09:30)
[2019-09-24] MEDS ORDERED: DONEPEZIL 10 MG TABLET PEG SCH (09:30)
[2019-09-24] MEDS ORDERED: ATORVASTATIN 20 MG TABLET PEG SCH (09:30)
[2019-09-24] MEDS ORDERED: SODIUM BICARBONATE 650 MG TABLET PEG SCH (09:30)
[2019-09-24] MEDS ORDERED: METOPROLOL TARTRATE 25 MG TABLET PEG SCH (09:30)
[2019-09-24] MEDS ORDERED: amLODIPine 10 MG TABLET PEG SCH (09:30)
[2019-09-24] MEDS ORDERED: hydrALAZINE 25 MG TABLET PEG SCH (09:30)
[2019-09-24] MEDS ORDERED: MAGNESIUM HYDROXIDE SUSP 30 ML UDCUP PEG PRN (09:30)
[2019-09-24 12:19] VITALS: BP 108/54
[2019-09-24] MEDS ORDERED: FERROUS SULFATE 300 MG/5 ML UDCUP PEG SCH (14:00)
[2019-09-24] MEDS ORDERED: OMEPRAZOLE ODT 20 MG TABLET PEG SCH (21:00)
[2019-09-24] MEDS ORDERED: DOCUSATE SODIUM 100 MG/10 ML UDCUP PEG SCH (21:00)
[2019-09-25] MEDS ORDERED: MULTIVITAMIN (CENTRUM) TABLET PEG SCH (08:00)
== END 2019-09-24 12:11 | disposition home or self-care (01) | DRG 189 ==
LOC: EDUNIT# → EDBD → N.ED 21:36 → N.EDINP 09-24 05:16 → SUATTDRO 09-24 05:16 → N.EDINP 09-24 12:10
PROVIDERS: ADMIT Family Medicine; ATTEND Internal Medicine

== ENCOUNTER 2019-09-27 08:57 | Inpatient (IN) ==
[2019-09-27] MEDS ORDERED: CLINDAMYCIN INJ 600 MG in PREMIX 1 EACH IV STA (09:35)
[2019-09-27 09:57] LABS: ABG Base Excess 1.8 MMOL/L (-2.5-2.5); ABG HCO3 25.9 MMOL/L (20-26); ABG Oxygen Saturation 90.9 % (95-100); ABG PCO2 51.7 MM HG (35-48); ABG PH 7.346 (7.35-7.45); ABG PO2 63.2 MM HG (80-95); ABG TCO2 25.9 MMOL/L (23-27)
[2019-09-27 10:12] LABS: Basophils # 0.1 10*3/uL (0.0-0.2); Basophils % 0.4 % (0.0-0.8); Eosinophils % 0.2 % (0.00-10.9); Hemoglobin 10.2 GM/DL (12.0-16.0); Immature Granulocytes % 1.2 %; Lymphocytes # 1.6 10*3/uL (1.4-4.0); Lymphocytes % 9.9 % (21.3-54.2); Mean Corpuscular Volume 92.9 FL (87-102); Mean Platelet Volume 11.4 FL (9.6-12.0); Neutrophils % 80.3 % (38.7-73.9); Platelet Count 457 T/CUMM (130-400); Red Blood Count 3.66 MC/CUMM (3.8-5.5); Red Cell Distribution Width 17.2 % (9.3-17.3); White Blood Count 16.4 T/CUMM (4-12)
[2019-09-27 10:30] LABS: INR 1.1; PT Patient Result 11.4 SECS (9.8-11.9); Partial Thromboplastin Time 23.6 SECS (23.9-33.8)
[2019-09-27 10:35] LABS: Albumin 2.1 G/DL (3.4-5.0); Bilirubin,Total 0.4 MG/DL (0.2-1.0); Calcium 11.3 MG/DL (8.5-10.1); Osmolality,Calculated 313.1 MOS/KG (273-304); Total Protein 8.8 G/DL (6.4-8.3)
[2019-09-27 10:50] LABS: Ferritin 3309.2 ng/ml (8-252)
[2019-09-27] MEDS ORDERED: FUROSEMIDE 40 MG/4 ML VIAL IV STA (11:04)
[2019-09-27] MEDS ORDERED: GENTAMICIN INJ 120 MG in SODIUM CHLORIDE 0.9% 100 ML IV STA (11:08)
[2019-09-27] MEDS ORDERED: DEXAMETHASONE 4 MG/1 ML VIAL IV STA (11:08)
[2019-09-27] MEDS ORDERED: MORPHINE 4 MG/1 ML VIAL IV PRN (11:09)
[2019-09-27] MEDS ORDERED: ONDANSETRON 4 MG/2 ML VIAL IV PRN (11:09)
[2019-09-27] MEDS ORDERED: ALBUTEROL 2.5 MG/3 ML NEB RESP TX PRN (11:09)
[2019-09-27] MEDS ORDERED: SODIUM CHLORIDE 0.9% 250 ML IV STA (11:12)
[2019-09-27 11:44] LABS: Amorphous Crystals,Urine Moderate /HPF (Few); Apearance,Urine CLOUDY (Clear); Bacteria,Urine Many /HPF (Few); Bilirubin,Urine Negative (Negative); Blood, Urine Small mg/dL (Negative); Glucose,Urine (UA) >=500 mg/dL (Negative); Ketones,Urine Negative (Negative); Mucus,Urine Occasional /LPF (Occasional); Nitrite,Urine Negative (Negative); Protein,Urine >=500 MG/DL; Urine Color Amber (Yellow); Urine Specific Gravity 1.013 (1.001-1.035); Urine Urobilinogen < 2.0 EU/DL (0.2-1.0)
[2019-09-27] MEDS: SODIUM CHLORIDE 0.9% 1,000 ML IV SCH (12:15)
[2019-09-27 13:19] LABS: ABG Base Excess 0.3 MMOL/L (-2.5-2.5); ABG HCO3 24.8 MMOL/L (20-26); ABG PCO2 38.8 MM HG (35-48); ABG PH 7.413 (7.35-7.45); ABG TCO2 21.7 MMOL/L (23-27)
[2019-09-27] MEDS ORDERED: SUCCINYLCHOLINE 200 MG/10 ML VIAL ONE (14:54)
[2019-09-27] MEDS: ALBUTEROL/IPRATROPIUM 3 ML NEB RESP TX SCH (15:00)
[2019-09-27] MEDS ORDERED: ROCURONIUM 100 MG/10 ML VIAL IV ONE (15:02)
[2019-09-27 16:47] LABS: Albumin 1.8 G/DL (3.4-5.0); Bilirubin,Total 0.7 MG/DL (0.2-1.0); Calcium 11.3 MG/DL (8.5-10.1); Osmolality,Calculated 317.1 MOS/KG (273-304); Total Protein 8.8 G/DL (6.4-8.3)
[2019-09-27] MEDS: PANTOPRAZOLE 40 MG VIAL IV SCH (17:00)
[2019-09-27] MEDS ORDERED: DIGOXIN 0.5 MG/2 ML AMP IV ONE ×2 (17:57→20:00)
[2019-09-27] MEDS: methylPREDNISolone SOD SUC 40 MG/1 ML VIAL IV SCH (18:45)
[2019-09-27] MEDS: MEROPENEM 500 MG in SODIUM CHLORIDE 0.9% 100 ML IV SCH (18:53)
[2019-09-27] MEDS ORDERED: GENTAMICIN INJ 120 MG in PREMIX 1 EACH IV ONE (21:00)
[2019-09-27] MEDS: ENOXAPARIN 30 MG/0.3 ML SYRINGE SUBCUT SCH (21:08)
[2019-09-28] MEDS: ALBUTEROL/IPRATROPIUM 3 ML NEB RESP TX SCH ×4 (00:26→23:15)
[2019-09-28 03:26] LABS: ABG Base Excess 0.3 MMOL/L (-2.5-2.5); ABG HCO3 24.7 MMOL/L (20-26); ABG Oxygen Saturation 99.6 % (95-100); ABG PCO2 34.9 MM HG (35-48); ABG PH 7.445 (7.35-7.45); ABG TCO2 21.6 MMOL/L (23-27)
[2019-09-28] MEDS: methylPREDNISolone SOD SUC 40 MG/1 ML VIAL IV SCH ×3 (03:37→16:46)
[2019-09-28] MEDS: MEROPENEM 500 MG in SODIUM CHLORIDE 0.9% 100 ML IV SCH ×2 (03:38→15:08)
[2019-09-28] MEDS: SODIUM CHLORIDE 0.9% 1,000 ML IV SCH ×3 (03:38→20:05)
[2019-09-28 04:19] LABS: Basophils % 0.1 % (0.0-0.8); Hematocrit 24.9 VOL% (35.7-47.0); Hemoglobin 7.8 GM/DL (12.0-16.0); Immature Granulocytes % 0.9 %; Immature Granulocytes Absolute 0.19 #; Lymphocytes # 0.9 10*3/uL (1.4-4.0); Lymphocytes % 4.6 % (21.3-54.2); Mean Corpuscular HGB Conc 31.3 GM/DL (32-36); Mean Corpuscular Volume 90.5 FL (87-102); Mean Platelet Volume 10.8 FL (9.6-12.0); Monocytes % 3.7 % (1.7-12.7); Neutrophils % 90.7 % (38.7-73.9); Platelet Count 335 T/CUMM (130-400); Red Blood Count 2.75 MC/CUMM (3.8-5.5); White Blood Count 20.4 T/CUMM (4-12)
[2019-09-28 04:38] LABS: Band Neutrophils 4 % (0-10); Hypochromasia 2+; Lymphocytes 4 % (20-55); Microcytosis 1+; Platelet Estimate Adequate; Segmented Neutrophils 91 % (50-85); Total Cells Counted 100
[2019-09-28 04:51] LABS: Calcium 10.2 MG/DL (8.5-10.1); Osmolality,Calculated 321.5 MOS/KG (273-304)
[2019-09-28 09:40] LABS: Parathyroid Hormone Intact 599.9 PG/ML (18.4-80.1)
[2019-09-28] MEDS: PANTOPRAZOLE 40 MG VIAL IV SCH (10:50)
[2019-09-28] MEDS ORDERED: NON-FORMULARY MEDICATION (Albuterol Sulfate 2 PUFF) INH PRN (13:15)
[2019-09-28] MEDS ORDERED: ACETAMINOPHEN 500 MG TABLET PEG PRN (13:15)
[2019-09-28] MEDS: FERROUS SULFATE 300 MG/5 ML UDCUP PEG SCH ×2 (13:50→20:41)
[2019-09-28] MEDS ORDERED: NON-FORMULARY MEDICATION (Esomeprazole Magnesium [Nexium] 20 MG) PEG SCH (20:00)
[2019-09-28] MEDS: SODIUM BICARBONATE 650 MG TABLET PEG SCH (20:41)
[2019-09-28] MEDS: ENOXAPARIN 30 MG/0.3 ML SYRINGE SUBCUT SCH (20:42)
[2019-09-28] MEDS: OMEGA 3 ACID ETHYL ESTERS 1 GM CAPSULE PO SCH (20:42)
[2019-09-28] MEDS: ATORVASTATIN 20 MG TABLET PEG SCH (20:42)
[2019-09-28] MEDS: METOPROLOL TARTRATE 25 MG TABLET PEG SCH (20:42)
[2019-09-29] MEDS: methylPREDNISolone SOD SUC 40 MG/1 ML VIAL IV SCH ×3 (00:35→17:30)
[2019-09-29] MEDS: SODIUM CHLORIDE 0.9% 1,000 ML IV SCH ×4 (00:53→23:25)
[2019-09-29] MEDS: MEROPENEM 500 MG in SODIUM CHLORIDE 0.9% 100 ML IV SCH ×2 (03:12→16:00)
[2019-09-29 04:48] LABS: ABG Base Excess -2.5 MMOL/L (-2.5-2.5); ABG HCO3 22.3 MMOL/L (20-26); ABG Oxygen Saturation 99.5 % (95-100); ABG PCO2 36.4 MM HG (35-48); ABG TCO2 20.7 MMOL/L (23-27); Allen Test Positive; Pt O2 Delivery Device Ventilator
[2019-09-29 05:05] LABS: Basophils % 0.1 % (0.0-0.8); Hematocrit 24.8 VOL% (35.7-47.0); Hemoglobin 7.4 GM/DL (12.0-16.0); Immature Granulocytes % 1.8 %; Immature Granulocytes Absolute 0.32 #; Lymphocytes # 0.7 10*3/uL (1.4-4.0); Lymphocytes % 3.7 % (21.3-54.2); Mean Corpuscular HGB Conc 29.8 GM/DL (32-36); Mean Corpuscular Volume 93.6 FL (87-102); Mean Platelet Volume 11.6 FL (9.6-12.0); Neutrophils % 90.4 % (38.7-73.9); Platelet Count 368 T/CUMM (130-400); Red Blood Count 2.65 MC/CUMM (3.8-5.5); Red Cell Distribution Width 16.9 % (9.3-17.3); White Blood Count 18.2 T/CUMM (4-12)
[2019-09-29 05:26] LABS: Band Neutrophils 2 % (0-10); Hypochromasia 1+; Lymphocytes 2 % (20-55); Microcytosis 1+; Polychromasia Slight; Segmented Neutrophils 93 % (50-85); Total Cells Counted 100
[2019-09-29 05:30] LABS: Calcium 9.7 MG/DL (8.5-10.1); Osmolality,Calculated 327.7 MOS/KG (273-304); Prealbumin 17.4 MG/DL (20-40)
[2019-09-29] MEDS: ALBUTEROL/IPRATROPIUM 3 ML NEB RESP TX SCH ×3 (07:06→23:08)
[2019-09-29] MEDS ORDERED: ALBUMIN 25% 50 GM in PREMIX 1 EACH IV ONE (07:45)
[2019-09-29] MEDS ORDERED: MAGNESIUM HYDROXIDE SUSP 30 ML UDCUP PO PRN (08:00)
[2019-09-29] MEDS: OMEGA 3 ACID ETHYL ESTERS 1 GM CAPSULE PO SCH ×2 (08:00→20:29)
[2019-09-29] MEDS: amLODIPine 10 MG TABLET PEG SCH (08:00)
[2019-09-29] MEDS: CINACALCET 30 MG TABLET PO SCH (08:05)
[2019-09-29] MEDS: SODIUM BICARBONATE 650 MG TABLET PEG SCH ×2 (08:05→20:29)
[2019-09-29] MEDS: METOPROLOL TARTRATE 25 MG TABLET PEG SCH ×2 (08:05→20:29)
[2019-09-29] MEDS: FERROUS SULFATE 300 MG/5 ML UDCUP PEG SCH ×3 (08:05→20:29)
[2019-09-29] MEDS: PANTOPRAZOLE 40 MG VIAL IV SCH (11:30)
[2019-09-29] MEDS: ENOXAPARIN 30 MG/0.3 ML SYRINGE SUBCUT SCH (20:29)
[2019-09-29] MEDS: ATORVASTATIN 20 MG TABLET PEG SCH (20:29)
[2019-09-30] MEDS: SODIUM CHLORIDE 0.9% 1,000 ML IV SCH (01:06)
[2019-09-30] MEDS: methylPREDNISolone SOD SUC 40 MG/1 ML VIAL IV SCH ×3 (01:55→16:56)
[2019-09-30] MEDS: MEROPENEM 500 MG in SODIUM CHLORIDE 0.9% 100 ML IV SCH ×2 (03:11→16:43)
[2019-09-30 04:52] LABS: Allen Test Positive; Pt O2 Delivery Device Ventilator
[2019-09-30 04:53] LABS: ABG Base Excess -1.2 MMOL/L (-2.5-2.5); ABG HCO3 23.4 MMOL/L (20-26); ABG Oxygen Saturation 99.9 % (95-100); ABG PCO2 31.6 MM HG (35-48); ABG PH 7.456 (7.35-7.45); ABG TCO2 20.9 MMOL/L (23-27)
[2019-09-30 04:59] LABS: Basophils % 0.1 % (0.0-0.8); Hematocrit 23.9 VOL% (35.7-47.0); Hemoglobin 7.4 GM/DL (12.0-16.0); Immature Granulocytes % 4.2 %; Immature Granulocytes Absolute 0.64 #; Lymphocytes # 0.5 10*3/uL (1.4-4.0); Lymphocytes % 3.5 % (21.3-54.2); Mean Corpuscular Volume 90.9 FL (87-102); Mean Platelet Volume 11.5 FL (9.6-12.0); NRBC # 0.04 10*3/uL; Neutrophils % 88.2 % (38.7-73.9); Platelet Count 343 T/CUMM (130-400); Red Blood Count 2.63 MC/CUMM (3.8-5.5); Red Cell Distribution Width 16.9 % (9.3-17.3); White Blood Count 15.3 T/CUMM (4-12)
[2019-09-30 05:24] LABS: Calcium 9.8 MG/DL (8.5-10.1); Osmolality,Calculated 317.7 MOS/KG (273-304)
[2019-09-30 05:34] LABS: Hypochromasia 2+; Lymphocytes 4 % (20-55); Microcytosis 1+; Platelet Estimate Adequate; Segmented Neutrophils 92 % (50-85); Total Cells Counted 100
[2019-09-30] MEDS: ALBUTEROL/IPRATROPIUM 3 ML NEB RESP TX SCH ×3 (06:57→22:15)
[2019-09-30] MEDS ORDERED: SODIUM CHLORIDE 0.9% 1,000 ML IV PRN (07:22)
[2019-09-30] MEDS ORDERED: POTASSIUM CHLORIDE 20 MEQ TABLET PO ONE (07:24)
[2019-09-30] MEDS ORDERED: POTASSIUM CHLORIDE 20 MEQ/15 ML UDCUP PER TUBE ONE (08:46)
[2019-09-30] MEDS ORDERED: VANCOMYCIN INJ 750 MG in SODIUM CHLORIDE 0.9% 250 ML IV SCH (09:00)
[2019-09-30] MEDS: OMEGA 3 ACID ETHYL ESTERS 1 GM CAPSULE PO SCH ×2 (09:06→21:00)
[2019-09-30] MEDS: amLODIPine 10 MG TABLET PEG SCH (09:06)
[2019-09-30] MEDS: SODIUM BICARBONATE 650 MG TABLET PEG SCH ×2 (09:07→21:00)
[2019-09-30] MEDS: CINACALCET 30 MG TABLET PO SCH ×2 (09:07→21:00)
[2019-09-30] MEDS: METOPROLOL TARTRATE 25 MG TABLET PEG SCH (09:07)
[2019-09-30] MEDS: hydrALAZINE 25 MG TABLET PO SCH ×2 (09:07→14:29)
[2019-09-30] MEDS: FERROUS SULFATE 300 MG/5 ML UDCUP PEG SCH ×3 (09:08→21:00)
[2019-09-30] MEDS: SODIUM CHLORIDE 0.45% 1,000 ML IV SCH ×2 (09:11→16:56)
[2019-09-30] MEDS: PANTOPRAZOLE 40 MG VIAL IV SCH (10:44)
[2019-09-30] MEDS ORDERED: VANCOMYCIN INJ 1,250 MG in SODIUM CHLORIDE 0.9% 250 ML IV ONE (11:00)
[2019-09-30] MEDS ORDERED: POTASSIUM CHLORIDE 20 MEQ/15 ML UDCUP PO ONE (13:00)
[2019-09-30] MEDS ORDERED: ATROPINE 1 MG/10 ML SYRINGE IV STA (16:41)
[2019-09-30] MEDS: ATORVASTATIN 20 MG TABLET PEG SCH (21:00)
[2019-09-30] MEDS: ENOXAPARIN 30 MG/0.3 ML SYRINGE SUBCUT SCH (21:51)
[2019-10-01] MEDS: hydrALAZINE 25 MG TABLET PO SCH ×2 (00:04→09:10)
[2019-10-01] MEDS: methylPREDNISolone SOD SUC 40 MG/1 ML VIAL IV SCH ×4 (02:00→21:47)
[2019-10-01 04:03] LABS: Basophils # 0.1 10*3/uL (0.0-0.2); Basophils % 0.3 % (0.0-0.8); Hematocrit 27.8 VOL% (35.7-47.0); Hemoglobin 8.7 GM/DL (12.0-16.0); Immature Granulocytes % 7.7 %; Immature Granulocytes Absolute 1.15 #; Lymphocytes # 0.8 10*3/uL (1.4-4.0); Mean Corpuscular HGB Conc 31.3 GM/DL (32-36); Mean Corpuscular Volume 89.7 FL (87-102); Mean Platelet Volume 11.4 FL (9.6-12.0); Monocytes % 5.5 % (1.7-12.7); NRBC # 0.05 10*3/uL; Neutrophils % 81.5 % (38.7-73.9); Platelet Count 336 T/CUMM (130-400); Red Cell Distribution Width 16.9 % (9.3-17.3); White Blood Count 14.9 T/CUMM (4-12)
[2019-10-01] MEDS: MEROPENEM 500 MG in SODIUM CHLORIDE 0.9% 100 ML IV SCH (04:03)
[2019-10-01] MEDS: SODIUM CHLORIDE 0.45% 1,000 ML IV SCH ×2 (04:03→15:50)
[2019-10-01 04:19] LABS: Calcium 9.2 MG/DL (8.5-10.1)
[2019-10-01 04:29] LABS: Hypochromasia 1+; Lymphocytes 3 % (20-55); Myelocytes 1 %; Nucleated Red Blood Cells 1 (0-5); Segmented Neutrophils 91 % (50-85); Total Cells Counted 100
[2019-10-01 04:30] LABS: Microcytosis 1+; Platelet Estimate Normal
[2019-10-01] MEDS: ALBUTEROL/IPRATROPIUM 3 ML NEB RESP TX SCH ×3 (06:46→23:27)
[2019-10-01] MEDS ORDERED: cloNIDine 0.3 MG/24 HR PATCH TRANSDERM SCH (08:00)
[2019-10-01] MEDS: FERROUS SULFATE 300 MG/5 ML UDCUP PEG SCH ×3 (09:10→20:38)
[2019-10-01] MEDS: amLODIPine 10 MG TABLET PEG SCH (09:10)
[2019-10-01] MEDS: OMEGA 3 ACID ETHYL ESTERS 1 GM CAPSULE PO SCH ×2 (09:10→20:39)
[2019-10-01] MEDS: SODIUM BICARBONATE 650 MG TABLET PEG SCH ×2 (09:10→20:39)
[2019-10-01] MEDS: CINACALCET 30 MG TABLET PO SCH ×2 (09:11→20:38)
[2019-10-01] MEDS: PANTOPRAZOLE 40 MG VIAL IV SCH (10:31)
[2019-10-01] MEDS ORDERED: VANCOMYCIN INJ 750 MG in SODIUM CHLORIDE 0.9% 250 ML IV PRN (11:00)
[2019-10-01] MEDS: ENOXAPARIN 30 MG/0.3 ML SYRINGE SUBCUT SCH (20:38)
[2019-10-01] MEDS: ATORVASTATIN 20 MG TABLET PEG SCH (20:39)
[2019-10-02] MEDS: SODIUM CHLORIDE 0.45% 1,000 ML IV SCH ×3 (00:42→23:12)
[2019-10-02 05:30] LABS: Basophils % 0.1 % (0.0-0.8); Hematocrit 31.5 VOL% (35.7-47.0); Hemoglobin 9.6 GM/DL (12.0-16.0); Immature Granulocytes % 12.9 %; Immature Granulocytes Absolute 2.72 #; Lymphocytes # 0.7 10*3/uL (1.4-4.0); Lymphocytes % 3.3 % (21.3-54.2); Mean Corpuscular HGB Conc 30.5 GM/DL (32-36); Mean Corpuscular Volume 90.8 FL (87-102); Mean Platelet Volume 11.5 FL (9.6-12.0); Monocytes % 6.9 % (1.7-12.7); NRBC # 0.48 10*3/uL; Neutrophils % 76.8 % (38.7-73.9); Platelet Count 353 T/CUMM (130-400); Red Blood Count 3.47 MC/CUMM (3.8-5.5); Red Cell Distribution Width 17.3 % (9.3-17.3); White Blood Count 21.1 T/CUMM (4-12)
[2019-10-02 06:22] LABS: Band Neutrophils 1 % (0-10); Eosinophils 1 % (0-10); Lymphocytes 2 % (20-55); Metamyelocytes 3 %; Myelocytes 3 %; Nucleated Red Blood Cells 5 (0-5); Segmented Neutrophils 83 % (50-85); Total Cells Counted 100
[2019-10-02 06:23] LABS: Hypochromasia 1+; Microcytosis 1+; Platelet Estimate Normal
[2019-10-02 06:29] LABS: Calcium 9.4 MG/DL (8.5-10.1); Osmolality,Calculated 315.3 MOS/KG (273-304)
[2019-10-02] MEDS: ALBUTEROL/IPRATROPIUM 3 ML NEB RESP TX SCH ×2 (07:09→11:49)
[2019-10-02] MEDS: SODIUM BICARBONATE 650 MG TABLET PEG SCH ×2 (09:11→23:12)
[2019-10-02] MEDS: amLODIPine 10 MG TABLET PEG SCH (09:11)
[2019-10-02] MEDS: CINACALCET 30 MG TABLET PO SCH ×2 (09:11→23:13)
[2019-10-02] MEDS: FERROUS SULFATE 300 MG/5 ML UDCUP PEG SCH ×3 (09:11→23:12)
[2019-10-02] MEDS: OMEGA 3 ACID ETHYL ESTERS 1 GM CAPSULE PO SCH ×2 (09:12→23:12)
[2019-10-02] MEDS: methylPREDNISolone SOD SUC 40 MG/1 ML VIAL IV SCH ×2 (10:28→23:13)
[2019-10-02] MEDS ORDERED: FUROSEMIDE 40 MG/4 ML VIAL IV ONE (12:03)
[2019-10-02 12:33] LABS: Basophils # 0.2 10*3/uL (0.0-0.2); Basophils % 0.7 % (0.0-0.8); Hemoglobin 9.3 GM/DL (12.0-16.0); Immature Granulocytes % 12.6 %; Immature Granulocytes Absolute 3.02 #; Lymphocytes # 1.1 10*3/uL (1.4-4.0); Lymphocytes % 4.8 % (21.3-54.2); Mean Corpuscular Volume 91.7 FL (87-102); Mean Platelet Volume 11.1 FL (9.6-12.0); Monocytes % 7.9 % (1.7-12.7); NRBC # 0.56 10*3/uL; Platelet Count 408 T/CUMM (130-400); Red Blood Count 3.27 MC/CUMM (3.8-5.5); Red Cell Distribution Width 17.4 % (9.3-17.3)
[2019-10-02 12:52] LABS: Calcium 8.8 MG/DL (8.5-10.1); Osmolality,Calculated 317.1 MOS/KG (273-304)
[2019-10-02 12:56] LABS: Band Neutrophils 1 % (0-10); Hypochromasia 1+; Lymphocytes 7 % (20-55); Metamyelocytes 1 %; Microcytosis 1+; Myelocytes 1 %; Nucleated Red Blood Cells 2 (0-5); Promyelocytes 1 %; Segmented Neutrophils 84 % (50-85); Total Cells Counted 100
[2019-10-02 12:57] LABS: Platelet Estimate Increased
[2019-10-02 21:13] VITALS: BP 145/50
[2019-10-02] MEDS: ATORVASTATIN 20 MG TABLET PEG SCH (23:12)
[2019-10-02] MEDS: ENOXAPARIN 30 MG/0.3 ML SYRINGE SUBCUT SCH (23:13)
[2019-10-03] MEDS: ALBUTEROL/IPRATROPIUM 3 ML NEB RESP TX SCH (02:13)
[2019-10-28] MEDS ORDERED: DARBEPOETIN ALFA 100 MCG/ML VIAL SUBCUT SCH (08:00)
== END 2019-10-03 05:35 | disposition expired | DRG 208 ==
LOC: N.ED 08:57 → N.EDINP 11:09 → SUATTDRO 11:09 → N.ICU 14:11 → N.3E 10-01 16:39
PROVIDERS: ADMIT Internal Medicine; ATTEND Internal Medicine